=== PATIENT | female | born 1965 | race Caucasian/White ===

== ENCOUNTER 2022-06-13 19:02 | Inpatient (IN) | payer SELFPAY ==
[2022-06-13] MEDS ORDERED: ONDANSETRON 4 MG/2 ML VIAL IVP STA (22:54)
[2022-06-13] MEDS ORDERED: SODIUM CHLORIDE 0.9% 1,000 ML IV STA (22:54)
[2022-06-13] MEDS ORDERED: HYDROmorphone 0.5 MG/0.5 ML SYRINGE IVP STA (22:54)
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
[2022-06-14 00:27] LABS: Basophils % (A) 0 %; Eosinophils % (A) 0 %; HCT 38.9 % (34.0-46.0); HGB 12.2 gm/dL (11.4-16.0); Lymphocytes # (A) 0.5 k/uL (1.0-4.8); Lymphocytes % (A) 4 %; MCH 28.9 pg (25.0-35.0); MCHC 31.5 g/dL (31.0-37.0); MCV 91.8 fL (80.0-100.0); Mean Platelet Volume 8.6; Monocytes # (A) 0.4 k/uL (0-1.0); Monocytes % (A) 3 %; Neutrophils # (A) 13.8 k/uL (1.3-7.7); Neutrophils % (A) 92 %; Platelet Count 256 k/uL (150-450); RBC 4.23 m/uL (3.80-5.40); RDW 14.3 % (11.5-15.5)
[2022-06-14 00:34] LABS: ALT 14 U/L (4-34); AST 17 U/L (14-36); African American GFR (CKD) >90 (>60 ml/min/1.73 sqM); Albumin 2.8 g/dL (3.5-5.0); Alkaline Phosphatase 127 U/L (38-126); Amylase 35 U/L (30-110); Anion Gap 13 mmol/L; Blood Urea Nitrogen 14 mg/dL (7-17); Calcium 8.5 mg/dL (8.4-10.2); Carbon Dioxide 24 mmol/L (22-30); Chloride 100 mmol/L (98-107); Glucose 112 mg/dL (74-99); Lipase 33 U/L (23-300); Non-African American GFR(CKD) >90 (>60 ml/min/1.73 sqM); Potassium 3.2 mmol/L (3.5-5.1); Sodium 137 mmol/L (137-145); Total Bilirubin 0.6 mg/dL (0.2-1.3); Total Protein 5.8 g/dL (6.3-8.2)
[2022-06-14] MEDS ORDERED: HYDROmorphone 0.5 MG/0.5 ML SYRINGE IVP STA (02:18)
[2022-06-14] MEDS ORDERED: POTASSIUM CHLORIDE ER 20 MEQ TAB.ER PO STA (03:48)
[2022-06-14] MEDS ORDERED: ACETAMINOPHEN TAB 325 MG TAB PO PRN ×2 (04:13→17:32)
[2022-06-14] MEDS ORDERED: ONDANSETRON 4 MG/2 ML VIAL IVP PRN ×2 (04:13→17:32)
[2022-06-14] MEDS ORDERED: NALOXONE 0.4 MG/ML 1 ML VIAL IV PRN ×2 (04:13→17:32)
[2022-06-14] MEDS ORDERED: MORPHINE SULFATE 4 MG/ML SYRINGE IV PRN (04:13)
[2022-06-14] MEDS ORDERED: cefTRIAXone 2 GM VIAL IVPB ONE (04:30)
[2022-06-14] MEDS: HYDROmorphone 0.5 MG/0.5 ML SYRINGE IVP PRN ×5 (05:58→18:00)
[2022-06-14] MEDS: SODIUM CHLORIDE 0.9% 1,000 ML IV SCH ×2 (05:59→18:26)
[2022-06-14] MEDS ORDERED: FAMOTIDINE 20 MG TAB PO SCH (09:00)
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
[2022-06-14] MEDS: IOPAMIDOL CONTRAST (ORAL USE) VIAL PO PRN ×2 (09:42→10:56)
[2022-06-14] MEDS: metroNIDAZOLE 500 MG TAB PO SCH ×2 (09:43→16:09)
[2022-06-14] MEDS: GABAPENTIN 300 MG CAP PO PRN (09:43)
[2022-06-14 10:38] LABS: INR 1.2 (<1.2); Prothrombin Time 12.4 sec (9.0-12.0)
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
--- NOTE | 2022-06-14 12:16 | CT ---
EXAMINATION TYPE: CT abdomen pelvis w con CT DLP: 1858.4 mGycm, Automated exposure control for dose reduction was used. DATE OF EXAM: 06/14/2022 11:44 AM COMPARISON: CT abdomen pelvis most recent from 06/06/2022, CT guided abscess drainage 06/07/2022 . CLINICAL INDICATION:Female, 57 years old with history of diverticulitis with abscess; Left sided butt ocks pain after abscess. TECHNIQUE: Standard CT of the abdomen and pelvis following the administration of 100 cc of Isovue 3 00 IV contrast material and oral contrast. Coronal and sagittal reformats were performed. FINDINGS: LOWER CHEST: Right lower lobe dependent atelectasis. ABDOMEN LIVER: Diffusely hypoattenuating parenchyma. No suspicious lesion. GALLBLADDER AND BILE DUCTS: Calcified gallstone identified. No wall thickening or surrounding inflamm atory changes. No biliary ductal dilatation. PANCREAS: Unremarkable. SPLEEN: Enlarged measuring 17.1 cm in AP dimension. ADRENAL GLANDS: Left adrenal gland is unremarkable. Stable right adrenal gland lesion measuring up to 4.3 cm from most recent examination however this has increased size from prior examination in 2010. KIDNEYS AND URETERS: No hydronephrosis. Contrast is demonstrated within both collecting systems which limits evaluation for renal calculi. Kidneys enhance symmetrically. PELVIS BLADDER: Under distended with trace contrast identified. REPRODUCTIVE: Uterus is slightly deviated to the right secondary to pelvic abscess. The left ovary is not well-visualized. ABDOMEN & PELVIS STOMACH AND BOWEL: Stomach and duodenum are unremarkable. Redemonstration of sigmoid colon wall thick ening with contained perforation measuring grossly 5.8 x 4.2 cm. Colonic diverticulosis in this regio n. No evidence of bowel obstruction. PERITONEUM: Contained air in the pelvis. Redemonstration of left pelvic abscess with air-fluid level measuring 10.5 x 5.1 cm, previously 7.1 x 4.4 cm. This demonstrates a larger gas component with decre ased fluid component. Pigtail catheter has somewhat migrated prior exam with only a small portion dem onstrated within the collection. VASCULATURE: Mild atherosclerotic calcifications are present throughout the abdominal aorta and its b ranches. No evidence of aortic aneurysm. MUSCULOSKELETAL: No acute osseous abnormalities. Scoliotic curvature of the visualized spine. LYMPH NODES: Multiple prominent periportal lymph nodes, likely reactive. SOFT TISSUE/ABDOMINAL WALL: New gas and thickening identified within the left piriformis muscle and l eft gluteal musculature with surrounding fat stranding (series 201, image 74 through 98). IMPRESSION: 1. Redemonstration of contain perforated sigmoid diverticulitis with slight increase in size of left pelvic abscess measuring up to 10.5 cm with larger air component, previously 7.1 cm. Marginal decreas e in fluid component. Interval migration of percutaneous pigtail catheter with only a tiny portion al leonie the wall of the pelvic abscess. 2. New foci of gas and edematous appearance of the left piriformis and left gluteal musculature with surrounding fat stranding. Finding is concerning for infectious process with necrotizing infection no t excluded. 3. Stable indeterminate right adrenal gland lesion from recent examination 06/06/2022 however this has increased in size from prior examination 2010. Nonemergent CT adrenal mass protocol is recommended. 4. Cholelithiasis. 5. Splenomegaly.
[2022-06-14] MEDS ORDERED: LIDOCAINE 1% INJ 10MG/ML (5 ML VIAL-PF) SQ ONE (14:39)
--- NOTE | 2022-06-14 15:20 | IR ---
EXAMINATION TYPE: IR cvc insert >=5 years DATE OF EXAM: 06/14/2022 COMPARISON: NONE CLINICAL HISTORY: Abscess Needs long-term intravenous access for antibiotics. PROCEDURE: Hand hygiene obtained with soap and water and alcohol-based hand rub. After informed consent, the skin overlying the right cephalic vein was localized with ultrasound and noted to be compressible and patent. An ultrasound image was obtained and submitted on the patient's chart. The overlying skin was prepped and draped and Lidocaine was used for local anesthesia. A sk in maria ines was made with a scalpel. Access was gained to the vein under ultrasound guidance with a 21 g auge needle and a 0.018 inch wire was advanced but was not advanced centrally, vein was subsequently punctured again. Access site was dilated with Peel-Away sheath and catheter tailored to the appropri ate length and advanced such that the distal tip is at the cavoatrial junction following negotiated a nd with a 0.018 inch angled Glidewire following failed guidewire advancement. Spot image was obtaine d verifying placement. Catheter was fixed to the skin and a sterile dressing was placed following he mostasis. Catheter was aspirated and flushed with saline. Patient was discharged in stable conditio n without complication. Maximal barrier technique is utilized. Ultrasound image is documented on the chart. Ultrasound used with sterile technique. Fluoro time and fluoroscopic images submitted to document procedure: 75 intraoperative C-arm images, 5.2 minutes fluoroscopy time IMPRESSION: STATUS POST ULTRASOUND AND FLUOROSCOPIC GUIDED PICC LINE PLACEMENT, READY FOR USE. THIS PROCEDURE WAS PERFORMED BY THE UNDERSIGNED.
[2022-06-14] MEDS ORDERED: LACTATED RINGERS 1,000 ML IV ONE ×3 (15:53→17:32)
[2022-06-14] MEDS ORDERED: LIDOCAINE 2% INJ 20 MG/ML (2 ML VIAL) ONE (16:18)
[2022-06-14] MEDS ORDERED: NEOSTIGMINE 1 MG/ML 10 ML VIAL ONE (16:18)
[2022-06-14] MEDS ORDERED: fentaNYL (PF) 50 MCG/ML 2 ML AMP ONE (16:18)
[2022-06-14] MEDS ORDERED: ROCURONIUM 10 MG/ML (5 ML VIAL) IV ONE (16:18)
[2022-06-14] MEDS ORDERED: PROPOFOL 10 MG/ML 20 ML VIAL IV ONE (16:18)
[2022-06-14] MEDS ORDERED: GLYCOPYRROLATE 0.2 MG/ML 2 ML VIAL ONE (16:18)
[2022-06-14] MEDS ORDERED: SUCCINYLCHOLINE CHLORIDE 200 MG/10 ML VIAL IV ONE (16:18)
[2022-06-14] MEDS ORDERED: HYDROmorphone (PF) 1 MG/ML ONE (16:18)
[2022-06-14] MEDS ORDERED: MIDAZOLAM 2 MG/2 ML VIAL ONE (16:18)
[2022-06-14] MEDS ORDERED: HEPARIN SODIUM,PORCINE 5,000 UNIT/ML 1 ML VIAL SQ ONE (16:18)
[2022-06-14] MEDS ORDERED: IV FLUID CONTINUATION 1,000 ML IV ONE (16:19)
--- NOTE | 2022-06-14 16:19 | P.PN ---
Progress Note - Text Progress Note Date: 06/14/22 Patient's CAT scan shows worsening abscess in the pelvis related to previous perforated diverticulitis. I discussed the fundoplication. Patient will undergo sigmoid colectomy with end colostomy and washout of pelvis today.
--- NOTE | 2022-06-14 17:31 | P.OP ---
Date of Procedure: 06/14/22 Preoperative Diagnosis: Perforated diverticulitis with abscess Postoperative Diagnosis: Perforated diverticulitis with abscess Procedure(s) Performed: Sigmoid colectomy with end colostomy and washout of pelvic abscess Anesthesia: TYRESE Surgeon: Freedom Cotni Estimated Blood Loss (ml): 25 Pathology: other (Sigmoid colon) Condition: stable Disposition: PACU Description of Procedure: Patient's placed on the operative table in the supine position.. She received general anesthesia. Her abdomen was prepped and draped usual fashion. The skin was incised in the low midline position. The abdomen was entered. The Minerva retractors placed a wound. The sigmoid colon was followed down level polyps. There is a lot of inflammation. A pelvic abscess was entered. There is a lot of stool in the abscess. This point the sigmoid colon was dissected free and then transected proximally with the linear stapler. Using the Enseal device the mesentery the sigmoid colon was divided. And then the sigmoid colon was transected with the contour stapler distal to the abscess area. The abdomen was irrigated with 4 L of normal saline. A EMELIA drains placed the pelvis and brought through the stab incision in the right lower quadrant. The colostomy was then brought up in the left upper quadrant. The fascia was closed with looped #1 PDS suture. Skin was closed marek. The superior portion of the incision was closed marek. The inferior portion left open and packed with Kerlix. The colostomy then matured with 3-0 Vicryl. Sterile dressing applied. Patient top she will well. She was sent to recovery room stable condition. Her EMELIA drain was placed by radiology in the left buttock was then removed.
[2022-06-14] MEDS: KETOROLAC 15 MG/ML 1 ML VIAL IVP SCH (17:52)
[2022-06-14] MEDS: AMPICILLIN-SULBACTAM 3 GM in SODIUM CHLORIDE 0.9% 100 ML IVPB SCH ×2 (19:24→20:00)
[2022-06-14] MEDS: FAMOTIDINE 20 MG/2 ML VIAL IV SCH (20:42)
[2022-06-14] MEDS: HYDROmorphone 1 MG/ML 1 ML SYRINGE IVP PRN (20:43)
[2022-06-14] MEDS ORDERED: HEPARIN SODIUM,PORCINE/PF 5,000 UNIT/0.5 ML SYRINGE SQ SCH (21:00)
[2022-06-14] MEDS: metroNIDAZOLE-NS PMX 500 MG in SALINE 1 100ML.BAG IVPB SCH (22:01)
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
[2022-06-15] MEDS: HYDROmorphone 1 MG/ML 1 ML SYRINGE IVP PRN ×3 (00:45→16:20)
[2022-06-15] MEDS: AMPICILLIN-SULBACTAM 3 GM in SODIUM CHLORIDE 0.9% 100 ML IVPB SCH ×5 (00:46→23:32)
[2022-06-15] MEDS: KETOROLAC 15 MG/ML 1 ML VIAL IVP SCH ×5 (01:08→23:32)
[2022-06-15] MEDS: metroNIDAZOLE-NS PMX 500 MG in SALINE 1 100ML.BAG IVPB SCH ×3 (04:16→20:54)
[2022-06-15] MEDS ORDERED: cefTRIAXone 2 GM VIAL IVPB SCH (06:00)
[2022-06-15 08:32] LABS: Basophils % (A) 0 %; Eosinophils % (A) 0 %; Hypochromasia Slight; Lymphocytes # (A) 0.5 k/uL (1.0-4.8); Lymphocytes % (A) 3 %; MCH 28.5 pg (25.0-35.0); MCHC 30.6 g/dL (31.0-37.0); Mean Platelet Volume 8.4; Monocytes # (A) 0.4 k/uL (0-1.0); Monocytes % (A) 2 %; Neutrophils # (A) 15.3 k/uL (1.3-7.7); Neutrophils % (A) 94 %; Platelet Count 256 k/uL (150-450); RBC 3.87 m/uL (3.80-5.40); RDW 14.5 % (11.5-15.5); WBC 16.3 k/uL (3.8-10.6)
[2022-06-15 08:44] LABS: African American GFR (CKD) >90 (>60 ml/min/1.73 sqM); Anion Gap 9 mmol/L; Blood Urea Nitrogen 17 mg/dL (7-17); Calcium 7.9 mg/dL (8.4-10.2); Carbon Dioxide 27 mmol/L (22-30); Chloride 103 mmol/L (98-107); Glucose 116 mg/dL (74-99); Non-African American GFR(CKD) 82 (>60 ml/min/1.73 sqM); Potassium 3.9 mmol/L (3.5-5.1); Sodium 139 mmol/L (137-145)
[2022-06-15] MEDS: ENOXAPARIN 40 MG/0.4 ML SYRINGE SQ SCH (08:45)
[2022-06-15] MEDS: FAMOTIDINE 20 MG/2 ML VIAL IV SCH ×2 (08:46→20:55)
[2022-06-15] MEDS: LACTATED RINGERS 1,000 ML IV SCH ×3 (08:54→23:34)
[2022-06-15] MEDS: SODIUM CHLORIDE 0.9% 1,000 ML IV SCH (11:40)
--- NOTE | 2022-06-15 12:33 | P.PN ---
Subjective Progress Note Date: 06/15/22 CHIEF COMPLAINT: Perforated diverticulitis with abscess HISTORY OF PRESENT ILLNESS: Patient is postop day #1 status post sigmoid colectomy with end colostomy and washout of pelvic abscess for perforated di verticulitis with abscess. Patient reports that most of her pain is still on the left buttocks where her drain had been. The drain was removed in the OR. Patient denies any nausea or vomiting. She remains nothing by mouth. EMELIA drain with 40 mL of serous output. She denies any nausea or vomiting. WBC 15 up to 16.3 Hgb 11 platelets 254 potassium is 3.9 creatinine 0.80 Patient seen and examined with Dr. vincent PHYSICAL EXAM: VITAL SIGNS: Reviewed. GENERAL: Well-developed in no acute distress. HEENT: No sclera icterus. Extraocular movements grossly intact. Moist buccal mucosa. Head is atraumatic, normocephalic. ABDOMEN: Soft. Nondistended. Patient has colostomy on the left sero sanguineous output noted. Stoma pink. Incision site clean dry and intact. The lower incision is open to drain and has packing in place. NEURO: Alert and oriented. Cranial nerves II through XII grossly intact. SKIN: left buttocks with very minimal induration. No erythema. There is a small punctured area where the drain had been placed. There is some purulent drainage noted. Tender with palpation. ASSESSMENT: 1. Perforated diverticulitis with abscess status post sigmoid colectomy with end colostomy and washout of pelvic abscess PLAN: -Increase IV fluids to 125 mL per hour -Continue antibiotics per ID service -Continue pain medication -Continue local wound care with wet-to-dry dressing changes -Keep patient nothing by mouth -Repeat labs in a.m. -GI prophylaxis Pepcid and DVT prophylaxis Lovenox Physician Counter Control Operator note has been reviewed by physician. Signing provider agrees with the documented findings, assessment, and plan of care. Objective - Vital Signs Vital signs: Vital Signs Temp 97.6 F 06/15/22 08:00 Pulse 74 06/15/22 08:00 Resp 18 06/15/22 08:00 BP 133/78 06/15/22 08:00 Pulse Ox 98 06/15/22 08:00 FiO2 Intake & Output 06/14/22 06/15/22 06/15/22 18:59 06:59 18:59 Intake Total 1600 400 Output Total 210 700 40 Balance 1390 -300 -40 Weight 99.79 kg Intake: IV 1600 Oral 400 Output: Drainage 100 40 Anterior Abdomen 100 40 Urine 140 600 Uretheral (Lucia) 600 Estimated Blood Loss 70 Other: Voiding Method Indwelling Catheter Indwelling Catheter - Labs CBC & Chem 7: 06/15/22 06:56 06/15/22 06:56 Labs: Abnormal Lab Results - Last 24 Hours (Table) 06/15/22 06/15/22 Range/Units 06:56 06:56 WBC 16.3 H (3.8-10.6) k/uL Hgb 11.0 L (11.4-16.0) gm/dL MCHC 30.6 L (31.0-37.0) g/dL Neutrophils # 15.3 H (1.3-7.7) k/uL Lymphocytes # 0.5 L (1.0-4.8) k/uL Glucose 116 H (74-99) mg/dL Calcium 7.9 L (8.4-10.2) mg/dL
--- NOTE | 2022-06-15 14:34 | P.PN ---
Subjective Progress Note Date: 06/15/22 Hospital course: Patient is a very pleasant 57-year-old female with a past medical history of diverticulitis whom underwent recent hospitalization from 06/06/22 through 06/10/22 after presenting with left lower quadrant abdominal pain and being diagnosed with complicated perforated sigmoid diverticulitis which resulted and undergoing a CT guided drainage of her intra-abdominal abscess and drain was left in place. Patient presented to the hospital overnight with a chief complaint of decreased output from this drain and experiencing fecal appearing drainage around the drain insertion site. Patient reports this is accompanied by significant left lower quadrant abdominal pain and pain throughout her left buttocks. Patient denied having any fevers, chills, nausea, vomiting, or any urinary complaints. Patient reports when she was discharged home from the hospital on 06/10/22 she was experiencing normal bowel movements however reports she has not had a bowel movement in over 2 days. Patient has been receiving IV antibiotics Rocephin and Flagyl managed through infectious disease on an outpatient basis. Previous culture results obtained upon insertion of abscess drainage catheter on 06/07/22 revealed anaerobic culture positive for gram- negative bacilli and Gram stain positive forbeta-hemolytic Streptococcus and E. coli. Upon arrival to the emergency department, patient underwent full evaluation. Labs completed revealing leukocytosis with a left shift with WBC count of 15.0, hypokalemia with potassium of 3.2, an elevated alkaline phosphatase of 127. Patient was admitted under Gen. surgery team and we were consulted for medical management throughout patient's hospitalization. CT abdomen and pelvis with contrast was obtained which revealed redemonstration of contained perforated sigmoid diverticulitis with slight increase in size of left pelvic abscess measuring up to 10.5 cm with larger a component (previously 7.1 cm) and a new foci of gas and edematous appearance of left piriformis and left gluteal musculature with surrounding fat stranding concerning for an infectious process, unable to exclude necrotizing fasciitis. general surgeon and infectious disease both notified. Rocephin discontinued and patient started on Unasyn per recommendation of infectious disease. General surgery took patient to OR and pt underwent a sigmoid colectomy with end colostomy placement. Physical exam: Patient seen and fully evaluated at bedside this morning. Patient continues to complain of pain to left buttocks and generalized overall abdominal pain. she is receiving gentle IV fluid hydration with lactated Ringer's at 125 mL's per hour. She remains on Flagyl and Unasyn. Vital signs reviewed and stable. General: Nontoxic, no distress and appears stated age. Appears older than her biological age. Derm: Skin warm and dry, normal coloration for ethnicity. Head: Atraumatic, normocephalic and symmetric. Eyes: EOMs intact, no lid lag, and anicteric sclera Mouth: no lip lesions, mucus membranes moist Cardiovascular: regular rate and rhythm with normal S1S2, systolic murmur, positive posterior tibial pulses bilaterally, and cap refill < 2 seconds. Lungs: Respirations even, regular, and unlabored on room air. Lungs CTA bilaterally, no rhonchi, no rales, no wheezing, and no accessory muscle usage. GI/: soft obese abdomen, patient with colostomy left lower quadrant, stoma martha red in color and no drainage in colostomy bag. To right side of abdomen, vertical surgical incision in place to right upper and lower quadrant with marek and lower third of incision was left open with packing in place. Pt has previous drainage tube in the insertion site to left buttocks with brown purulent drainage. Ext: ROM intact. No gross muscle atrophy, no edema, no contractures Neuro: Speech clear, face symmetrical and CN II-XII grossly intact with no noted focal neuro deficits Psych: Alert and oriented to person, place, time, and situation. Appropriate and pleasant affect. Assessment and Plan of Care: Peritonitis Perforated sigmoid diverticulitis Leukocytosis Beta-hemolytic streptococcus and E. coli infection -Management through primary admitting general surgery team including DVT prophylaxis, pain management, wound care, and drain management. -Cultures obtained on 06/07/22 revealing anaerobic culture positive for gram- negative bacilli and Gram stain positive forbeta-hemolytic Streptococcus and E. coli. -Patient to continue current IV antibiotics with Flagyl and Unasyn -Blood cultures pending -Infectious disease Following -Symptomatic care and pain management Hypokalemia, replaced Thank you for allowing us to participate in the care of this pleasant patient. Do not hesitate to contact us with questions. Someone can be reached from the [facility] hospitalist group all hours of the day at [phone] or via perfect serve. Objective - Vital Signs Vital signs: Vital Signs Temp 98.3 F 06/15/22 02:00 Pulse 74 06/15/22 02:00 Resp 14 06/15/22 02:00 BP 143/68 06/15/22 02:00 Pulse Ox 97 06/15/22 02:00 FiO2 Intake & Output 06/14/22 06/15/22 06/15/22 18:59 06:59 18:59 Intake Total 1600 400 Output Total 210 700 40 Balance 1390 -300 -40 Weight 99.79 kg Intake: IV 1600 Oral 400 Output: Drainage 100 40 Anterior Abdomen 100 40 Urine 140 600 Uretheral (Lucia) 600 Estimated Blood Loss 70 Other: Voiding Method Indwelling Catheter - Labs CBC & Chem 7: 06/15/22 06:56 06/15/22 06:56 Labs: Abnormal Lab Results - Last 24 Hours (Table) 06/14/22 Range/Units 10:10 PT 12.4 H (9.0-12.0) sec INR 1.2 H (<1.2)
[2022-06-16] MEDS: metroNIDAZOLE-NS PMX 500 MG in SALINE 1 100ML.BAG IVPB SCH ×3 (04:11→20:02)
[2022-06-16] MEDS: KETOROLAC 15 MG/ML 1 ML VIAL IVP SCH ×2 (05:18→12:24)
[2022-06-16] MEDS: AMPICILLIN-SULBACTAM 3 GM in SODIUM CHLORIDE 0.9% 100 ML IVPB SCH ×4 (05:18→23:55)
[2022-06-16] MEDS: FAMOTIDINE 20 MG/2 ML VIAL IV SCH ×2 (07:34→20:03)
--- NOTE | 2022-06-16 07:38 | P.PN ---
Subjective Progress Note Date: 06/15/22 Principal diagnosis: Perforated diverticulitis and intra-abdominal abscess Patient is a 57-year-old female who was recently admitted at this facility diagnosed with a perforated diverticulitis intra-abdominal abscess status post CT-guided drainage culture positive for E. coli and strep and anaerobes discharged on Rocephin and Flagyl subsequently presented back to the hospital with more pain and her drainage catheter site and no output patient was noticed to have worsening abscess and inflammation around the drainage catheter site patient is status post laparotomy diverting colostomy abdominal washout and no cultures. On today's evaluation that is 06/15/2022, the patient denies having any fever or any chills, sick complaining of pain to the left gluteal area site of the drainage catheter abdominal pain is currently controlled denies any chest pain or shortness of breath or cough no nausea no vomiting Objective - Vital Signs Vital signs: Vital Signs Temp 97.6 F 06/15/22 08:00 Pulse 74 06/15/22 08:00 Resp 18 06/15/22 08:00 BP 133/78 06/15/22 08:00 Pulse Ox 98 06/15/22 08:00 FiO2 Intake & Output 06/14/22 06/15/22 06/15/22 18:59 06:59 18:59 Intake Total 1600 400 Output Total 210 700 40 Balance 1390 -300 -40 Weight 99.79 kg Intake: IV 1600 Oral 400 Output: Drainage 100 40 Anterior Abdomen 100 40 Urine 140 600 Uretheral (Lucia) 600 Estimated Blood Loss 70 Other: Voiding Method Indwelling Catheter Indwelling Catheter - Exam GENERAL DESCRIPTION: Middle-aged female lying in bed in no distress RESPIRATORY SYSTEM: Unlabored breathing , decreased breath sounds at bases HEART: S1 S2 regular rate and rhythm , ABDOMEN: Soft , lower abdominal incision is open however no surrounding redness or drainage minimal drainage from her left gluteal drainage catheter site EXTREMITIES: No edema feet - Labs CBC & Chem 7: 06/15/22 06:56 06/15/22 06:56 Labs: Abnormal Lab Results - Last 24 Hours (Table) 06/15/22 06/15/22 Range/Units 06:56 06:56 WBC 16.3 H (3.8-10.6) k/uL Hgb 11.0 L (11.4-16.0) gm/dL MCHC 30.6 L (31.0-37.0) g/dL Neutrophils # 15.3 H (1.3-7.7) k/uL Lymphocytes # 0.5 L (1.0-4.8) k/uL Glucose 116 H (74-99) mg/dL Calcium 7.9 L (8.4-10.2) mg/dL Assessment and Plan (1) Pelvic abscess Current Visit: No Status: Acute Code(s): PVC6305 - SNOMED Code(s): 975132245 (2) Perforation of sigmoid colon due to diverticulitis Current Visit: No Status: Acute Code(s): K57.20 - DVTRCLI OF LG INT W PERFORATION AND ABSCESS W/O BLEEDING SNOMED Code(s): 3248572774807268 Plan: 1patient presented to hospital with drainage around the CT-guided drainage catheter site and this patient noticed to have worsening of the intra-abdominal abscess and some inflammation around the drainage catheter site status post laparotomy and diverting colostomy and washout of the pelvic abscess unfortunately no cultures were done with the recent CT-guided fluid cultures were positive for E. coli strep and anaerobes 2patient to continue Unasyn 3 g every 6 hours and monitor clinical course closely
[2022-06-16] MEDS: ENOXAPARIN 40 MG/0.4 ML SYRINGE SQ SCH (08:36)
[2022-06-16 11:28] LABS: Basophils % (A) 0 %; Eosinophils % (A) 0 %; HCT 33.8 % (34.0-46.0); HGB 10.7 gm/dL (11.4-16.0); Hypochromasia Slight; Lymphocytes # (A) 0.6 k/uL (1.0-4.8); Lymphocytes % (A) 4 %; MCH 29.7 pg (25.0-35.0); MCHC 31.7 g/dL (31.0-37.0); MCV 93.7 fL (80.0-100.0); Mean Platelet Volume 8.3; Monocytes # (A) 0.2 k/uL (0-1.0); Monocytes % (A) 2 %; Neutrophils # (A) 12.2 k/uL (1.3-7.7); Neutrophils % (A) 93 %; Platelet Count 235 k/uL (150-450); RBC 3.61 m/uL (3.80-5.40); RDW 14.9 % (11.5-15.5); WBC 13.1 k/uL (3.8-10.6)
--- NOTE | 2022-06-16 11:29 | P.PN ---
Subjective Progress Note Date: 06/16/22 CHIEF COMPLAINT: Perforated diverticulitis with abscess HISTORY OF PRESENT ILLNESS: Patient is postop day #2 status post sigmoid colectomy with end colostomy and washout of pelvic abscess for perforated di verticulitis with abscess. Patient continues to complain that most of her pain is in the left buttocks. She reports the pain is about the same as yesterday. She denies any abdominal pain. Denies any nausea or vomiting. No output from the ostomy. EMELIA drain 35 mL servicing was output this morning and 100 mL output through the 8. Patient wants to get up and ambulate. Afebrile. Labs for today pending. Urine output adequate. Patient seen and examined with Dr. vincent PHYSICAL EXAM: VITAL SIGNS: Reviewed. GENERAL: Well-developed in no acute distress. HEENT: No sclera icterus. Extraocular movements grossly intact. Moist buccal mucosa. Head is atraumatic, normocephalic. ABDOMEN: Soft. Nondistended. Patient has colostomy on the left serosanguineous output noted. Stoma pink. Incision site clean dry and intact. The lower incision is open to drain and has packing in place. NEURO: Alert and oriented. Cranial nerves II through XII grossly intact. SKIN: left buttocks with very minimal induration. Softer than yesterday. No erythema. foul smelling dark drainage at old drain site. tender with palpation ASSESSMENT: 1. Perforated diverticulitis with abscess status post sigmoid colectomy with end colostomy and washout of pelvic abscess PLAN: -Consult PT OT -Incentive spirometer ordered -Encouraged patient to increase activity level -Continue IV fluids at 125 mL per hour -Continue antibiotics per ID service -Continue pain medication -Continue local wound care with wet-to-dry dressing changes -Keep patient nothing by mouth except ice chips -Repeat labs in a.m. -GI prophylaxis Pepcid and DVT prophylaxis Lovenox Physician Thread Machine Operator note has been reviewed by physician. Signing provider agrees with the documented findings, assessment, and plan of care. Objective - Vital Signs Vital signs: Vital Signs Temp 97.9 F 06/16/22 07:38 Pulse 70 06/16/22 07:38 Resp 18 06/16/22 07:38 BP 123/69 06/16/22 07:38 Pulse Ox 100 06/16/22 07:38 FiO2 Intake & Output 06/15/22 06/16/22 06/16/22 18:59 06:59 18:59 Output Total 680 725 Balance -680 -725 Output: Drainage 80 100 Anterior Abdomen 80 100 Urine 600 625 Other: Voiding Method Indwelling Catheter Indwelling Catheter Indwelling Catheter - Labs CBC & Chem 7: 06/15/22 06:56 06/15/22 06:56 Labs: Microbiology - Last 24 Hours (Table) 06/14/22 20:04 Blood Culture - Preliminary Blood No Growth after 24 hours 06/14/22 20:10 Blood Culture - Preliminary Blood No Growth after 24 hours
[2022-06-16 11:37] LABS: African American GFR (CKD) >90 (>60 ml/min/1.73 sqM); Anion Gap 9 mmol/L; Blood Urea Nitrogen 26 mg/dL (7-17); Calcium 8.2 mg/dL (8.4-10.2); Carbon Dioxide 25 mmol/L (22-30); Chloride 106 mmol/L (98-107); Glucose 100 mg/dL (74-99); Non-African American GFR(CKD) >90 (>60 ml/min/1.73 sqM); Potassium 3.8 mmol/L (3.5-5.1); Sodium 140 mmol/L (137-145)
--- NOTE | 2022-06-16 11:38 | P.PN ---
Subjective Progress Note Date: 06/16/22 Hospital course: Patient is a very pleasant 57-year-old female with a past medical history of diverticulitis whom underwent recent hospitalization from 06/06/22 through 06/10/22 after presenting with left lower quadrant abdominal pain and being diagnosed with complicated perforated sigmoid diverticulitis which resulted and undergoing a CT guided drainage of her intra-abdominal abscess and drain was left in place. Patient presented to the hospital overnight with a chief complaint of decreased output from this drain and experiencing fecal appearing drainage around the drain insertion site. Patient reports this is accompanied by significant left lower quadrant abdominal pain and pain throughout her left buttocks. Patient denied having any fevers, chills, nausea, vomiting, or any urinary complaints. Patient reports when she was discharged home from the [facility] on 06/10/22 she was experiencing normal bowel movements however reports she has not had a bowel movement in over 2 days. Patient has been receiving IV antibiotics Rocephin and Flagyl managed through infectious disease on an outpatient basis. Previous culture results obtained upon insertion of abscess drainage catheter on 06/07/22 revealed anaerobic culture positive for gram- negative bacilli and Gram stain positive forbeta-hemolytic Streptococcus and E. coli. Upon arrival to the emergency department, patient underwent full evaluation. Labs completed revealing leukocytosis with a left shift with WBC count of 15.0, hypokalemia with potassium of 3.2, an elevated alkaline phosphatase of 127. Patient was admitted under Gen. surgery team and we were consulted for medical management throughout patient's hospitalization. CT abdomen and pelvis with contrast was obtained which revealed redemonstration of contained perforated sigmoid diverticulitis with slight increase in size of left pelvic abscess measuring up to 10.5 cm with larger a component (previously 7.1 cm) and a new foci of gas and edematous appearance of left piriformis and left gluteal musculature with surrounding fat stranding concerning for an infectious process, unable to exclude necrotizing fasciitis. general surgeon and infectious disease both notified. Rocephin discontinued and patient started on Unasyn per recommendation of infectious disease. General surgery took patient to OR and pt underwent a sigmoid colectomy with end colostomy placement. Progress Note Update: Pt is still c/o of abdominal pain. Has been passing flatus via ostomy. Tolerating ice chips. IVF ongoing. Abx ongoing. Physical exam: Gen: awake, alert HEENT: normocephalic, atraumatic, good hearing acuity, moist mucous membranes Resp: good air exchange, breathing comfortably with no accessory muscle use CVS: good distal perfusion x 4, GI: soft, NTTP, ND, ostomy : no SPT, no CVAT, sinclair catheter is present MSK: no pitting edema, no clubbing Neuro: non-focal, moving all extremities Psych: cooperative, euthymic mood Assessment and Plan of Care: Peritonitis Perforated sigmoid diverticulitis Leukocytosis Beta-hemolytic streptococcus and E. coli infection -Management through primary admitting general surgery team including DVT prophylaxis, pain management, wound care, and drain management. -Cultures obtained on 06/07/22 revealing anaerobic culture positive for gram- negative bacilli and Gram stain positive forbeta-hemolytic Streptococcus and E. coli. -Patient to continue current IV antibiotics with Flagyl and Unasyn -Blood cultures - NGTD -Infectious disease Following -Symptomatic care and pain management -PT/OT -Would recommend advancing diet as tolerated, defer to surgery Thank you for allowing us to participate in the care of this pleasant patient. Do not hesitate to contact us with questions. Someone can be reached from the [facility] hospitalist group all hours of the day at [phone] or via [employer]. Objective - Vital Signs Vital signs: Vital Signs Temp 97.9 F 06/16/22 07:38 Pulse 70 06/16/22 07:38 Resp 18 06/16/22 07:38 BP 123/69 06/16/22 07:38 Pulse Ox 100 06/16/22 07:38 FiO2 Intake & Output 06/15/22 06/16/22 06/16/22 18:59 06:59 18:59 Output Total 680 725 Balance -680 -725 Output: Drainage 80 100 Anterior Abdomen 80 100 Urine 600 625 Other: Voiding Method Indwelling Catheter Indwelling Catheter Indwelling Catheter - Labs CBC & Chem 7: 06/15/22 06:56 06/15/22 06:56 Labs: Microbiology - Last 24 Hours (Table) 06/14/22 20:04 Blood Culture - Preliminary Blood No Growth after 24 hours 06/14/22 20:10 Blood Culture - Preliminary Blood No Growth after 24 hours
[2022-06-16] MEDS: HYDROmorphone 1 MG/ML 1 ML SYRINGE IVP PRN ×2 (20:00→23:54)
[2022-06-16] MEDS: LACTATED RINGERS 1,000 ML IV SCH (20:06)
[2022-06-17] MEDS: HYDROmorphone 1 MG/ML 1 ML SYRINGE IVP PRN ×5 (03:49→23:59)
[2022-06-17] MEDS: metroNIDAZOLE-NS PMX 500 MG in SALINE 1 100ML.BAG IVPB SCH ×3 (04:11→21:48)
[2022-06-17] MEDS: AMPICILLIN-SULBACTAM 3 GM in SODIUM CHLORIDE 0.9% 100 ML IVPB SCH ×3 (05:33→17:43)
[2022-06-17] MEDS: FAMOTIDINE 20 MG/2 ML VIAL IV SCH ×2 (08:15→21:47)
[2022-06-17] MEDS: ENOXAPARIN 40 MG/0.4 ML SYRINGE SQ SCH (08:15)
[2022-06-17] MEDS: GABAPENTIN 300 MG CAP PO PRN ×2 (08:15→22:00)
--- NOTE | 2022-06-17 10:29 | P.PN ---
Subjective Progress Note Date: 06/17/22 CHIEF COMPLAINT: Perforated diverticulitis with abscess HISTORY OF PRESENT ILLNESS: Patient is postop day #3 status post sigmoid colectomy with end colostomy and washout of pelvic abscess for perforated di verticulitis with abscess. Patient reports that her pain is controlled. She complains that the pain in her left buttocks is where most of her pain is located. She is sitting in bedside chair. She denies any nausea or vomiting. She did have some air through her ostomy bag. No stool. Urine output adequate. Afebrile. EMELIA drain serosanguineous output 60 mL this morning and 145ml throughout the day yesterday. Currently on clear liquids. Labs are pending. Does see yesterday trending down from 16.3-13.1 PHYSICAL EXAM: VITAL SIGNS: Reviewed. GENERAL: Well-developed in no acute distress. HEENT: No sclera icterus. Extraocular movements grossly intact. Moist buccal mucosa. Head is atraumatic, normocephalic. ABDOMEN: Soft. Nondistended. Patient has colostomy on the left serosanguine ous output noted. Stoma pink. Incision site clean dry and intact. The lower incision is open to drain and has packing in place. There is a greenish tinge to the outer edge of the Kerlix dressing and edge of the abdominal wound on the right side NEURO: Alert and oriented. Cranial nerves II through XII grossly intact. SKIN: left buttocks not examined today. Patient is sitting ASSESSMENT: 1. Perforated diverticulitis with abscess status post sigmoid colectomy with end colostomy and washout of pelvic abscess PLAN: -Continue to monitor abdominal incision -Discontinue Lucia catheter -Continue clear liquids -Continue antibiotics per ID service -Continue pain medication as needed -Continue local wound care with wet-to-dry dressing changes -Encouraged patient to use incentive spirometer -Encourage patient to ambulate -GI prophylaxis Pepcid and DVT prophylaxis Lovenox Physician Travel Registered Nurse Pacu note has been reviewed by physician. Signing provider agrees with the documented findings, assessment, and plan of care. I have personally seen and examined the patient, reviewed the TENNIS CENTRE MANAGER /PAs history, exam and MDM and agree with the assessment and plan as written. Based on total visit time, I have performed more than 50% of the visit. As above: Patient states she is having more pain in the left hip than elsewhere. Small amount of flatus from the ostomy. She is afebrile. White blood cell count improved. Patient does have tenderness and swelling left hip. There is a small amount of purulent drainage from the previous drain site. We'll order repeat CT left hip to evaluate for abscess. Patient might require incision and drainage. Objective - Vital Signs Vital signs: Vital Signs Temp 97.6 F 06/17/22 08:00 Pulse 64 06/17/22 08:15 Resp 17 06/17/22 08:15 BP 166/80 06/17/22 08:00 Pulse Ox 96 06/17/22 08:00 FiO2 Intake & Output 06/16/22 06/17/22 06/17/22 18:59 06:59 18:59 Intake Total 200 Output Total 145 660 60 Balance 55 -660 -60 Intake: Intake, IV Titration 200 Amount metroNIDAZOLE-NS PMX 500 200 mg In Saline 1 100ml.bag @ 100 mls/hr IVPB Q8H [facility] Rx#:[id number] Output: Drainage 145 110 60 Anterior Abdomen 145 110 60 Urine 550 Uretheral (Lucia) 550 Other: Voiding Method Indwelling Catheter Indwelling Catheter Indwelling Catheter # Voids 1 - Labs CBC & Chem 7: 06/17/22 06:33 06/17/22 06:33 Labs: Abnormal Lab Results - Last 24 Hours (Table) 06/16/22 06/16/22 Range/Units 11:01 11:01 WBC 13.1 H (3.8-10.6) k/uL RBC 3.61 L (3.80-5.40) m/uL Hgb 10.7 L (11.4-16.0) gm/dL Hct 33.8 L (34.0-46.0) % Neutrophils # 12.2 H (1.3-7.7) k/uL Lymphocytes # 0.6 L (1.0-4.8) k/uL BUN 26 H (7-17) mg/dL Glucose 100 H (74-99) mg/dL Calcium 8.2 L (8.4-10.2) mg/dL Microbiology - Last 24 Hours (Table) 06/14/22 20:04 Blood Culture - Preliminary Blood No Growth after 48 hours 06/14/22 20:10 Blood Culture - Preliminary Blood No Growth after 48 hours
[2022-06-17 11:49] LABS: African American GFR (CKD) 110.7 (60.0-200.0); Anion Gap 11.8 mmol/L (10.00-18.00); BUN/Creat Ratio 30.43 Ratio (12.00-20.00); Blood Urea Nitrogen 21.3 mg/dL (9.0-27.0); Calcium 8.3 mg/dL (8.7-10.3); Carbon Dioxide 24.2 mmol/L (20.0-27.5); Magnesium 2.1 mg/dL (1.5-2.4); Non-African American GFR(CKD) 95.5 (60.0-200.0)
[2022-06-17 12:25] LABS: Basophils # (M) 0 X 10*3/uL (0.00-0.10); Eosinophils # (M) 0 X 10*3/uL (0.04-0.35); HCT 32.7 % (37.2-46.3); HGB 10.4 g/dL (12.0-15.0); Lymphocytes # (M) 0.27 X 10*3/uL (0.90-5.00); MCHC 31.8 g/dL (32.0-37.0); MCV 94.2 fL (80.0-97.0); Mean Platelet Volume 11.7 fL (9.5-12.2); Monocytes # (M) 0.27 X 10*3/uL (0.20-1.00); NRBC Per 100 WBC 0 /100 WBCS (0.0-0.0); Neutrophils % (M) 96 %; Platelet Count 187 X 10*3/uL (140-440); RBC 3.47 X 10*6/uL (4.10-5.20); RDW 15.3 % (11.5-14.5); WBC 13.44 X 10*3/uL (4.50-10.00)
[2022-06-17] MEDS: LACTATED RINGERS 1,000 ML IV SCH ×3 (12:50→15:30)
[2022-06-17] MEDS ORDERED: traZODone HCL 50 MG TAB PO PRN (13:30)
--- NOTE | 2022-06-17 13:32 | P.PN ---
Subjective Progress Note Date: 06/17/22 Hospital course: Patient is a very pleasant 57-year-old female with a past medical history of diverticulitis whom underwent recent hospitalization from 06/06/22 through 06/10/22 after presenting with left lower quadrant abdominal pain and being diagnosed with complicated perforated sigmoid diverticulitis which resulted and undergoing a CT guided drainage of her intra-abdominal abscess and drain was left in place. Patient presented to the hospital overnight with a chief complaint of decreased output from this drain and experiencing fecal appearing drainage around the drain insertion site. Patient reports this is accompanied by significant left lower quadrant abdominal pain and pain throughout her left buttocks. Patient denied having any fevers, chills, nausea, vomiting, or any urinary complaints. Patient reports when she was discharged home from the [facility] on 06/10/22 she was experiencing normal bowel movements however reports she has not had a bowel movement in over 2 days. Patient has been receiving IV antibiotics Rocephin and Flagyl managed through infectious disease on an outpatient basis. Previous culture results obtained upon insertion of abscess drainage catheter on 06/07/22 revealed anaerobic culture positive for gram- negative bacilli and Gram stain positive forbeta-hemolytic Streptococcus and E. coli. Upon arrival to the emergency department, patient underwent full evaluation. Labs completed revealing leukocytosis with a left shift with WBC count of 15.0, hypokalemia with potassium of 3.2, an elevated alkaline phosphatase of 127. Patient was admitted under Gen. surgery team and we were consulted for medical management throughout patient's hospitalization. CT abdomen and pelvis with contrast was obtained which revealed redemonstration of contained perforated sigmoid diverticulitis with slight increase in size of left pelvic abscess measuring up to 10.5 cm with larger a component (previously 7.1 cm) and a new foci of gas and edematous appearance of left piriformis and left gluteal musculature with surrounding fat stranding concerning for an infectious process, unable to exclude necrotizing fasciitis. general surgeon and infectious disease both notified. Rocephin discontinued and patient started on Unasyn per recommendation of infectious disease. General surgery took patient to OR and pt underwent a sigmoid colectomy with end colostomy placement. Progress Note Update: Pt is still c/o of abdominal pain, improving. Has been passing flatus via ostomy, improving. Tolerating ice chips and little bits of CLD. IVF ongoing. Abx ongoing. Up in chair today, ambulating with PT. Physical exam: Gen: awake, alert HEENT: normocephalic, atraumatic, good hearing acuity, moist mucous membranes Resp: good air exchange, breathing comfortably with no accessory muscle use CVS: good distal perfusion x 4, GI: soft, NTTP, ND, ostomy : no SPT, no CVAT, sinclair catheter is present MSK: no pitting edema, no clubbing Neuro: non-focal, moving all extremities Psych: cooperative, euthymic mood Assessment and Plan of Care: Peritonitis Perforated sigmoid diverticulitis Leukocytosis Beta-hemolytic streptococcus and E. coli infection -Management through primary admitting general surgery team including DVT prophylaxis, pain management, wound care, and drain management. -Cultures obtained on 06/07/22 revealing anaerobic culture positive for gram- negative bacilli and Gram stain positive forbeta-hemolytic Streptococcus and E. coli. -Patient to continue current IV antibiotics with Flagyl and Unasyn -Blood cultures - NGTD -Infectious disease Following -Symptomatic care and pain management -PT/OT -Would recommend advancing diet as tolerated, defer to surgery Thank you for allowing us to participate in the care of this pleasant patient. Do not hesitate to contact us with questions. Someone can be reached from the [facility] hospitalist group all hours of the day at [phone] or via [employer]. Objective - Vital Signs Vital signs: Vital Signs Temp 97.6 F 06/17/22 08:00 Pulse 64 06/17/22 08:15 Resp 17 06/17/22 08:15 BP 166/80 06/17/22 08:00 Pulse Ox 96 06/17/22 08:00 FiO2 Intake & Output 06/16/22 06/17/22 06/17/22 18:59 06:59 18:59 Intake Total 200 Output Total 145 660 60 Balance 55 -660 -60 Intake: Intake, IV Titration 200 Amount metroNIDAZOLE-NS PMX 500 200 mg In Saline 1 100ml.bag @ 100 mls/hr IVPB Q8H [facility] Rx#:[id number] Output: Drainage 145 110 60 Anterior Abdomen 145 110 60 Urine 550 Uretheral (Sinclair) 550 Other: Voiding Method Indwelling Catheter Indwelling Catheter Indwelling Catheter # Voids 1 - Labs CBC & Chem 7: 06/17/22 06:33 06/17/22 06:33 Labs: Abnormal Lab Results - Last 24 Hours (Table) 06/17/22 06/17/22 Range/Units 06:33 06:33 WBC 13.44 H (4.50-10.00) X 10*3/uL RBC 3.47 L (4.10-5.20) X 10*6/uL Hgb 10.4 L (12.0-15.0) g/dL Hct 32.7 L (37.2-46.3) % MCHC 31.8 L (32.0-37.0) g/dL RDW 15.3 H (11.5-14.5) % Neutrophils # (Manual) 12.90 H (2.00-8.90) X 10*3/uL Lymphocytes # (Manual) 0.27 L (0.90-5.00) X 10*3/uL Eosinophils # (Manual) 0 L (0.04-0.35) X 10*3/uL BUN/Creatinine Ratio 30.43 H (12.00-20.00) Ratio Glucose 148 H (70-110) mg/dL Calcium 8.3 L (8.7-10.3) mg/dL Microbiology - Last 24 Hours (Table) 06/14/22 20:04 Blood Culture - Preliminary Blood No Growth after 48 hours 06/14/22 20:10 Blood Culture - Preliminary Blood No Growth after 48 hours
[2022-06-17 13:54] VITALS: BMI 36.6
[2022-06-17] MEDS ORDERED: RX INFO: IV CONTRAST WAS GIVEN 1 EACH MISC MISCELLANE PRN (15:21)
--- NOTE | 2022-06-17 16:34 | P.PN ---
Subjective Progress Note Date: 06/16/22 Principal diagnosis: Perforated diverticulitis and intra-abdominal abscess Patient is a 57-year-old female who was recently admitted at this facility diagnosed with a perforated diverticulitis intra-abdominal abscess status post CT-guided drainage culture positive for E. coli and strep and anaerobes discharged on Rocephin and Flagyl subsequently presented back to the hospital with more pain and her drainage catheter site and no output patient was noticed to have worsening abscess and inflammation around the drainage catheter site patient is status post laparotomy diverting colostomy abdominal washout and no cultures. On today's evaluation that is 06/16/2022, the patient remains to be afebrile, the patient denies any worsening drainage from the left gluteal area , the patient abdominal pain is currently controlled denies any chest pain or shortness of breath or cough no nausea no vomiting Objective - Vital Signs Vital signs: Vital Signs Temp 97.9 F 06/16/22 07:38 Pulse 70 06/16/22 07:38 Resp 18 06/16/22 07:38 BP 123/69 06/16/22 07:38 Pulse Ox 100 06/16/22 07:38 FiO2 Intake & Output 06/15/22 06/16/22 06/16/22 18:59 06:59 18:59 Output Total 680 725 Balance -680 -725 Output: Drainage 80 100 Anterior Abdomen 80 100 Urine 600 625 Other: Voiding Method Indwelling Catheter Indwelling Catheter Indwelling Catheter - Exam GENERAL DESCRIPTION: Middle-aged female lying in bed in no distress RESPIRATORY SYSTEM: Unlabored breathing , decreased breath sounds at bases HEART: S1 S2 regular rate and rhythm , ABDOMEN: Soft , lower abdominal incision is open however no surrounding redness or drainage minimal drainage from her left gluteal drainage catheter site EXTREMITIES: No edema feet - Labs CBC & Chem 7: 06/17/22 06:33 06/17/22 06:33 Labs: Abnormal Lab Results - Last 24 Hours (Table) 06/16/22 06/16/22 Range/Units 11:01 11:01 WBC 13.1 H (3.8-10.6) k/uL RBC 3.61 L (3.80-5.40) m/uL Hgb 10.7 L (11.4-16.0) gm/dL Hct 33.8 L (34.0-46.0) % Neutrophils # 12.2 H (1.3-7.7) k/uL Lymphocytes # 0.6 L (1.0-4.8) k/uL BUN 26 H (7-17) mg/dL Glucose 100 H (74-99) mg/dL Calcium 8.2 L (8.4-10.2) mg/dL Microbiology - Last 24 Hours (Table) 06/14/22 20:04 Blood Culture - Preliminary Blood No Growth after 24 hours 06/14/22 20:10 Blood Culture - Preliminary Blood No Growth after 24 hours Assessment and Plan (1) Pelvic abscess Current Visit: No Status: Acute Code(s): FRC6625 - SNOMED Code(s): 697513267 (2) Perforation of sigmoid colon due to diverticulitis Current Visit: No Status: Acute Code(s): K57.20 - DVTRCLI OF LG INT W PERFORATION AND ABSCESS W/O BLEEDING SNOMED Code(s): 2938108768540834 Plan: 1patient presented to hospital with drainage around the CT-guided drainage catheter site and this patient noticed to have worsening of the intra-abdominal abscess and some inflammation around the drainage catheter site status post laparotomy and diverting colostomy and washout of the pelvic abscess unfortunately no cultures were done with the recent CT-guided fluid cultures were positive for E. coli strep and anaerobes 2patient seemed to have MRSA improvement and will continue Unasyn 3 g every 6 hours and monitor clinical course closely Time with Patient: Less than 30
--- NOTE | 2022-06-17 16:35 | P.PN ---
Subjective Progress Note Date: 06/17/22 Principal diagnosis: Perforated diverticulitis and intra-abdominal abscess Patient is a 57-year-old female who was recently admitted at this facility diagnosed with a perforated diverticulitis intra-abdominal abscess status post CT-guided drainage culture positive for E. coli and strep and anaerobes discharged on Rocephin and Flagyl subsequently presented back to the hospital with more pain and her drainage catheter site and no output patient was noticed to have worsening abscess and inflammation around the drainage catheter site patient is status post laparotomy diverting colostomy abdominal washout and no cultures. On today's evaluation that is 06/17/2022, the patient denies any fever or any chills, the patient denies any worsening abdominal pain and did have the minimal drainage from the left gluteal area, patient denies having any chest pain shortness of breath or cough no nausea no vomiting Objective - Vital Signs Vital signs: Vital Signs Temp 97.6 F 06/17/22 08:00 Pulse 64 06/17/22 08:15 Resp 17 06/17/22 08:15 BP 166/80 06/17/22 08:00 Pulse Ox 96 06/17/22 08:00 FiO2 Intake & Output 06/16/22 06/17/22 06/17/22 18:59 06:59 18:59 Intake Total 200 Output Total 145 660 60 Balance 55 -660 -60 Intake: Intake, IV Titration 200 Amount metroNIDAZOLE-NS PMX 500 200 mg In Saline 1 100ml.bag @ 100 mls/hr IVPB Q8H [facility] Rx#:[id number] Output: Drainage 145 110 60 Anterior Abdomen 145 110 60 Urine 550 Uretheral (Lucia) 550 Other: Voiding Method Indwelling Catheter Indwelling Catheter Indwelling Catheter # Voids 1 - Exam GENERAL DESCRIPTION: Middle-aged female lying in bed in no distress RESPIRATORY SYSTEM: Unlabored breathing , decreased breath sounds at bases HEART: S1 S2 regular rate and rhythm , ABDOMEN: Soft , abdominal incision is currently dressed EXTREMITIES: No edema feet - Labs CBC & Chem 7: 06/17/22 06:33 06/17/22 06:33 Labs: Abnormal Lab Results - Last 24 Hours (Table) 06/17/22 06/17/22 Range/Units 06:33 06:33 WBC 13.44 H (4.50-10.00) X 10*3/uL RBC 3.47 L (4.10-5.20) X 10*6/uL Hgb 10.4 L (12.0-15.0) g/dL Hct 32.7 L (37.2-46.3) % MCHC 31.8 L (32.0-37.0) g/dL RDW 15.3 H (11.5-14.5) % Neutrophils # (Manual) 12.90 H (2.00-8.90) X 10*3/uL Lymphocytes # (Manual) 0.27 L (0.90-5.00) X 10*3/uL Eosinophils # (Manual) 0 L (0.04-0.35) X 10*3/uL BUN/Creatinine Ratio 30.43 H (12.00-20.00) Ratio Glucose 148 H (70-110) mg/dL Calcium 8.3 L (8.7-10.3) mg/dL Microbiology - Last 24 Hours (Table) 06/14/22 20:04 Blood Culture - Preliminary Blood No Growth after 48 hours 06/14/22 20:10 Blood Culture - Preliminary Blood No Growth after 48 hours Assessment and Plan (1) Pelvic abscess Current Visit: No Status: Acute Code(s): [id number] - SNOMED Code(s): 254171242 (2) Perforation of sigmoid colon due to diverticulitis Current Visit: No Status: Acute Code(s): K57.20 - DVTRCLI OF LG INT W PERFORATION AND ABSCESS W/O BLEEDING SNOMED Code(s): 5876912844467610 Plan: 1patient presented to hospital with drainage around the CT-guided drainage catheter site and this patient noticed to have worsening of the intra-abdominal abscess and some inflammation around the drainage catheter site status post laparotomy and diverting colostomy and washout of the pelvic abscess unfortunately no cultures were done with the recent CT-guided fluid cultures were positive for E. coli strep and anaerobes 2patient did have some clinical improvement and will continue with the Unasyn 3 g every 6 hours and monitor clinical course closely Time with Patient: Less than 30
--- NOTE | 2022-06-17 18:07 | CT ---
EXAMINATION TYPE: CT hip LT w con DATE OF EXAM: 06/17/2022 COMPARISON: 06/14/2022 HISTORY: Follow up left hip abscess CT DLP: 1895.6 mGycm Automated exposure control for dose reduction was used. CONTRAST: Performed with IV Contrast, patient injected with 100cc mL of Isovue 300. Images obtained from the L4 level through the subtrochanteric femur with the IV contrast. FINDINGS: There is drainage catheter in the pelvis. There is a large complex fluid collection in the pelvis on the left side posterior to the rectosigmoid colon that measures 10 cm in length and consistent with a n abscess. There is air bubbles and increased density in the subcutaneous fat over the left buttock. This measur es approximately 9 x 6 cm. There is fat stranding in the subcutaneous tissues around the mass. There is been removal of the posterior drainage catheter in the pelvis on the left side compared to the old exam. There is Lucia catheter in the urinary bladder. The bony pelvis appears intact. No evidence of hip fracture. No focal bone destruction. IMPRESSION: Large abscess in the left buttock subcutaneous and partially intramuscular and appears approximately the same size as the last CT scan. There is a large pelvic abscess posteriorly on the left side not significantly different than last ex am.
[2022-06-18] MEDS: LACTATED RINGERS 1,000 ML IV SCH ×3 (00:01→14:52)
[2022-06-18] MEDS: metroNIDAZOLE-NS PMX 500 MG in SALINE 1 100ML.BAG IVPB SCH ×3 (05:01→20:35)
[2022-06-18] MEDS: HYDROmorphone 1 MG/ML 1 ML SYRINGE IVP PRN ×4 (05:02→20:33)
[2022-06-18] MEDS: AMPICILLIN-SULBACTAM 3 GM in SODIUM CHLORIDE 0.9% 100 ML IVPB SCH ×5 (06:06→17:30)
[2022-06-18 06:50] LABS: Glucose,Whole Blood 134 mg/dL (70-110)
[2022-06-18] MEDS: ENOXAPARIN 40 MG/0.4 ML SYRINGE SQ SCH (07:28)
[2022-06-18] MEDS: FAMOTIDINE 20 MG/2 ML VIAL IV SCH ×2 (07:28→20:35)
[2022-06-18] MEDS: GABAPENTIN 300 MG CAP PO PRN (10:33)
--- NOTE | 2022-06-18 11:09 | P.PN ---
Progress Note - Text Progress Note Date: 06/18/22 Patient still having pain and left hip. This pain is much more severe than her abdominal pain she states. Small amount of purulent drainage at the dressing site. The CAT scan shows persistent abscess collection within the left buttocks. We'll proceed with incision and drainage. Discussed with infectious disease. Will obtain deep cultures. Discussed with patient that we would be making a larger incision to allow this to drain better. We would be cleaning that tracked out. She is aware that there will likely be a Georgette drain left in there with some packing. She understands that there will be a wound there that we'll take some time to heal. She is agreeable to the procedure.
--- NOTE | 2022-06-18 11:25 | P.PN ---
Subjective Progress Note Date: 06/18/22 Hospital course: Patient is a very pleasant 57-year-old female with a past medical history of diverticulitis whom underwent recent hospitalization from 06/06/22 through 06/10/22 after presenting with left lower quadrant abdominal pain and being diagnosed with complicated perforated sigmoid diverticulitis which resulted and undergoing a CT guided drainage of her intra-abdominal abscess and drain was left in place. Patient presented to the hospital overnight with a chief complaint of decreased output from this drain and experiencing fecal appearing drainage around the drain insertion site. Patient reports this is accompanied by significant left lower quadrant abdominal pain and pain throughout her left buttocks. Patient denied having any fevers, chills, nausea, vomiting, or any urinary complaints. Patient reports when she was discharged home from the [facility] on 06/10/22 she was experiencing normal bowel movements however reports she has not had a bowel movement in over 2 days. Patient has been receiving IV antibiotics Rocephin and Flagyl managed through infectious disease on an outpatient basis. Previous culture results obtained upon insertion of abscess drainage catheter on 06/07/22 revealed anaerobic culture positive for gram- negative bacilli and Gram stain positive forbeta-hemolytic Streptococcus and E. coli. Upon arrival to the emergency department, patient underwent full evaluation. Labs completed revealing leukocytosis with a left shift with WBC count of 15.0, hypokalemia with potassium of 3.2, an elevated alkaline phosphatase of 127. Patient was admitted under Gen. surgery team and we were consulted for medical management throughout patient's hospitalization. CT abdomen and pelvis with contrast was obtained which revealed redemonstration of contained perforated sigmoid diverticulitis with slight increase in size of left pelvic abscess measuring up to 10.5 cm with larger a component (previously 7.1 cm) and a new foci of gas and edematous appearance of left piriformis and left gluteal musculature with surrounding fat stranding concerning for an infectious process, unable to exclude necrotizing fasciitis. general surgeon and infectious disease both notified. Rocephin discontinued and patient started on Unasyn per recommendation of infectious disease. General surgery took patient to OR and pt underwent a sigmoid colectomy with end colostomy placement. Progress Note Update: Pt is still c/o of abdominal pain. Going to OR today due to persistent abscess seen on Hip CT Physical exam: Gen: awake, alert HEENT: normocephalic, atraumatic, good hearing acuity, moist mucous membranes Resp: good air exchange, breathing comfortably with no accessory muscle use CVS: good distal perfusion x 4, GI: soft, NTTP, ND, ostomy : no SPT, no CVAT, sinclair catheter is present MSK: no pitting edema, no clubbing Neuro: non-focal, moving all extremities Psych: cooperative, euthymic mood Assessment and Plan of Care: Peritonitis Perforated sigmoid diverticulitis Leukocytosis Beta-hemolytic streptococcus and E. coli infection -Management through primary admitting general surgery team including DVT prophylaxis, pain management, wound care, and drain management. -Cultures obtained on 06/07/22 revealing anaerobic culture positive for gram- negative bacilli and Gram stain positive for beta-hemolytic Streptococcus and E. coli. -OR on 06/18 for I&D with toi drain placement, will await OR cultures from this -Patient to continue current IV antibiotics with Flagyl and Unasyn -Blood cultures - NGTD -Infectious disease Following -Symptomatic care and pain management -PT/OT Thank you for allowing us to participate in the care of this pleasant patient. Do not hesitate to contact us with questions. Someone can be reached from the [facility] hospitalist group all hours of the day at [phone] or via [employer]. Objective - Vital Signs Vital signs: Vital Signs Temp 98.5 F 06/18/22 02:02 Pulse 66 06/18/22 02:02 Resp 18 06/17/22 19:19 BP 136/77 06/18/22 02:02 Pulse Ox 95 06/18/22 02:02 FiO2 Intake & Output 06/17/22 06/18/22 06/18/22 18:59 06:59 18:59 Intake Total 100 Output Total 160 950 150 Balance -60 -950 -150 Weight 99.79 kg Intake: Intake, IV Titration 100 Amount metroNIDAZOLE-NS PMX 500 100 mg In Saline 1 100ml.bag @ 100 mls/hr IVPB Q8H [facility] Rx#:[id number] Output: Drainage 160 150 Anterior Abdomen 160 150 Urine 950 Other: Voiding Method Indwelling Catheter Indwelling Catheter Indwelling Catheter - Labs CBC & Chem 7: 06/17/22 06:33 06/17/22 06:33 Labs: Abnormal Lab Results - Last 24 Hours (Table) 06/17/22 06/17/22 06/18/22 Range/Units 06:33 06:33 06:45 WBC 13.44 H (4.50-10.00) X 10*3/uL RBC 3.47 L (4.10-5.20) X 10*6/uL Hgb 10.4 L (12.0-15.0) g/dL Hct 32.7 L (37.2-46.3) % MCHC 31.8 L (32.0-37.0) g/dL RDW 15.3 H (11.5-14.5) % Neutrophils # (Manual) 12.90 H (2.00-8.90) X 10*3/uL Lymphocytes # (Manual) 0.27 L (0.90-5.00) X 10*3/uL Eosinophils # (Manual) 0 L (0.04-0.35) X 10*3/uL BUN/Creatinine Ratio 30.43 H (12.00-20.00) Ratio Glucose 148 H (70-110) mg/dL POC Glucose (mg/dL) 134 H (70-110) mg/dL Calcium 8.3 L (8.7-10.3) mg/dL Microbiology - Last 24 Hours (Table) 06/14/22 20:04 Blood Culture - Preliminary Blood No Growth after 72 hours 06/14/22 20:10 Blood Culture - Preliminary Blood No Growth after 72 hours
[2022-06-18 11:26] LABS: Basophils # (A) 0.03 X 10*3/uL (0.00-0.10); Basophils % (A) 0.3 %; Eosinophils # (A) 0.04 X 10*3/uL (0.04-0.35); Eosinophils % (A) 0.3 %; HCT 31.3 % (37.2-46.3); Immature Grans, Automated 1.2 %; Lymphocytes # (A) 0.89 X 10*3/uL (0.90-5.00); Lymphocytes % (A) 7.8 %; MCH 29.3 pg (27.0-32.0); MCHC 31.9 g/dL (32.0-37.0); MCV 91.8 fL (80.0-97.0); Mean Platelet Volume 10.5 fL (9.5-12.2); Monocytes # (A) 0.37 X 10*3/uL (0.20-1.00); Monocytes % (A) 3.2 %; NRBC Per 100 WBC 0 /100 WBCS (0.0-0.0); Neutrophils # (A) 9.97 X 10*3/uL (1.80-7.70); Neutrophils % (A) 87.2 %; Platelet Count 225 X 10*3/uL (140-440); RBC 3.41 X 10*6/uL (4.10-5.20); RDW 14.8 % (11.5-14.5); WBC 11.44 X 10*3/uL (4.50-10.00)
[2022-06-18 11:48] LABS: African American GFR (CKD) 116.4 (60.0-200.0); Anion Gap 10.6 mmol/L (10.00-18.00); BUN/Creat Ratio 27.83 Ratio (12.00-20.00); Blood Urea Nitrogen 16.7 mg/dL (9.0-27.0); Carbon Dioxide 26.4 mmol/L (20.0-27.5); Non-African American GFR(CKD) 100.5 (60.0-200.0); Potassium 3.5 mmol/L (3.5-5.5)
[2022-06-18] MEDS ORDERED: SUCCINYLCHOLINE CHLORIDE 200 MG/10 ML VIAL IV ONE (11:50)
[2022-06-18] MEDS ORDERED: MIDAZOLAM 2 MG/2 ML VIAL ONE (11:50)
[2022-06-18] MEDS ORDERED: LIDOCAINE 2% INJ 20 MG/ML (2 ML VIAL) ONE (11:50)
[2022-06-18] MEDS ORDERED: PROPOFOL 10 MG/ML 20 ML VIAL IV ONE (11:50)
[2022-06-18] MEDS ORDERED: fentaNYL (PF) 50 MCG/ML 2 ML AMP ONE (11:50)
[2022-06-18] MEDS ORDERED: LACTATED RINGERS 1,000 ML IV ONE (11:56)
--- NOTE | 2022-06-18 12:47 | P.OP ---
Date of Procedure: 06/18/22 Procedure(s) Performed: PREOPERATIVE DIAGNOSIS: Left buttock abscess POSTOPERATIVE DIAGNOSIS: Same PROCEDURE: Incision and drainage left buttock abscess SURGEON: Randy EBL: 5 Mina ANESTHESIA: Gen. COMPLICATIONS: None OPERATIVE PROCEDURE: Patient placed in the right decubitus position after general anesthesia achieved. The previous drain site in the left medial aspect of her proximal by was incised using a horizontal incision measuring 3 cm. Dissection through the saphenous tissues took place using both blunt dissection and cautery. Entrance into a large abscess cavity took place. Cultures were taken. I followed the track of the purulence to the pelvis and then also inferiorly and laterally where the purulence seemed to come closer to the skin surface. I made a counterincision at that location measuring 2-3 cm horizontally. Again the subcutaneous tissues were divided using both blunt dis section and cautery. A Georgette drain was placed between these 2 incision sites. Careful irrigation took place until no further purulence was seen. Both wounds were packed with one-inch iodoform gauze. Sterile outer dressings were applied. I discussed the findings with the patient's son by phone. DISPOSITION: Stable to recovery room
[2022-06-18] MEDS ORDERED: HYDROmorphone 0.5 MG/0.5 ML SYRINGE IVP ONE ×2 (13:25→13:26)
[2022-06-18 16:50] LABS: Glucose,Whole Blood 151 mg/dL (70-110)
[2022-06-18 20:33] LABS: Glucose,Whole Blood 139 mg/dL (70-110)
--- NOTE | 2022-06-18 23:33 | P.PN ---
Subjective Progress Note Date: 06/18/22 Principal diagnosis: Perforated diverticulitis and intra-abdominal abscess Patient is a 57-year-old female who was recently admitted at this facility diagnosed with a perforated diverticulitis intra-abdominal abscess status post CT-guided drainage culture positive for E. coli and strep and anaerobes discharged on Rocephin and Flagyl subsequently presented back to the hospital with more pain and her drainage catheter site and no output patient was noticed to have worsening abscess and inflammation around the drainage catheter site patient is status post laparotomy diverting colostomy abdominal washout and no cultures. Patient did have CT of the left hip contusion shows large abscess and still showing the pelvic abscess unchanged from the previous CT On today's evaluation that is 06/18/2022, the patient remains to be afebrile, the patient denies any worsening abdominal pain however is still complaining of significant pain and drainage to the left gluteal area, patient denies having any chest pain shortness of breath or cough no nausea no vomiting Objective - Vital Signs Vital signs: Vital Signs Temp 97.9 F 06/18/22 12:58 Pulse 65 06/18/22 13:43 Resp 16 06/18/22 13:43 BP 134/61 06/18/22 13:43 Pulse Ox 92 L 06/18/22 13:43 FiO2 Intake & Output 06/17/22 06/18/22 06/18/22 18:59 06:59 18:59 Intake Total 100 550 Output Total 160 950 155 Balance -60 -950 395 Weight 99.79 kg Intake: IV 550 Intake, IV Titration 100 Amount metroNIDAZOLE-NS PMX 500 100 mg In Saline 1 100ml.bag @ 100 mls/hr IVPB Q8H [facility] Rx#:[id number] Output: Drainage 160 150 Anterior Abdomen 160 150 Urine 950 Estimated Blood Loss 5 Other: Voiding Method Indwelling Catheter Indwelling Catheter Indwelling Catheter - Exam GENERAL DESCRIPTION: Middle-aged female lying in bed in no distress RESPIRATORY SYSTEM: Unlabored breathing , decreased breath sounds at bases HEART: S1 S2 regular rate and rhythm , ABDOMEN: Soft , abdominal incision is currently dressed EXTREMITIES: No edema feet - Labs CBC & Chem 7: 06/18/22 07:18 06/18/22 07:18 Labs: Abnormal Lab Results - Last 24 Hours (Table) 06/18/22 06/18/22 06/18/22 Range/Units 06:45 07:18 07:18 WBC 11.44 H (4.50-10.00) X 10*3/uL RBC 3.41 L (4.10-5.20) X 10*6/uL Hgb 10.0 L (12.0-15.0) g/dL Hct 31.3 L (37.2-46.3) % MCHC 31.9 L (32.0-37.0) g/dL RDW 14.8 H (11.5-14.5) % Immature Gran # 0.14 H (0.00-0.04) X 10*3/uL Neutrophils # 9.97 H (1.80-7.70) X 10*3/uL Lymphocytes # 0.89 L (0.90-5.00) X 10*3/uL BUN/Creatinine Ratio 27.83 H (12.00-20.00) Ratio Glucose 112 H (70-110) mg/dL POC Glucose (mg/dL) 134 H (70-110) mg/dL Calcium 8.0 L (8.7-10.3) mg/dL Microbiology - Last 24 Hours (Table) 06/14/22 20:04 Blood Culture - Preliminary Blood No Growth after 72 hours 06/14/22 20:10 Blood Culture - Preliminary Blood No Growth after 72 hours Assessment and Plan (1) Pelvic abscess Current Visit: No Status: Acute Code(s): NHE5545 - SNOMED Code(s): 723739370 (2) Perforation of sigmoid colon due to diverticulitis Current Visit: No Status: Acute Code(s): K57.20 - DVTRCLI OF LG INT W PERFORATION AND ABSCESS W/O BLEEDING SNOMED Code(s): 7134484543669069 Plan: 1patient presented to hospital with drainage around the CT-guided drainage catheter site and this patient noticed to have worsening of the intra-abdominal abscess and some inflammation around the drainage catheter site status post laparotomy and diverting colostomy and washout of the pelvic abscess unfortunately no cultures were done with the recent CT-guided fluid cultures were positive for E. coli strep and anaerobes 2patient did have a CT of the hip showing a large antral muscular abscess and the pelvic abscess was unchanged patient is status post drainage of the left scrotal abscess and culture which will be followed 3-patient to continue with Unasyn and will adjust antibiotic for another on the basis of repeat Culture, Time with Patient: Less than 30
[2022-06-19] MEDS: AMPICILLIN-SULBACTAM 3 GM in SODIUM CHLORIDE 0.9% 100 ML IVPB SCH ×4 (00:53→17:30)
[2022-06-19] MEDS: HYDROmorphone 1 MG/ML 1 ML SYRINGE IVP PRN ×6 (00:53→21:37)
[2022-06-19] MEDS: LACTATED RINGERS 1,000 ML IV SCH ×3 (01:03→17:31)
[2022-06-19] MEDS: metroNIDAZOLE-NS PMX 500 MG in SALINE 1 100ML.BAG IVPB SCH ×3 (05:07→21:36)
[2022-06-19 07:03] LABS: Glucose,Whole Blood 122 mg/dL (70-110)
[2022-06-19] MEDS: FAMOTIDINE 20 MG/2 ML VIAL IV SCH ×2 (08:19→21:33)
[2022-06-19] MEDS: ENOXAPARIN 40 MG/0.4 ML SYRINGE SQ SCH (08:19)
--- NOTE | 2022-06-19 11:22 | P.PN ---
Subjective Progress Note Date: 06/19/22 Hospital course: Patient is a very pleasant 57-year-old female with a past medical history of diverticulitis whom underwent recent hospitalization from 06/06/22 through 06/10/22 after presenting with left lower quadrant abdominal pain and being diagnosed with complicated perforated sigmoid diverticulitis which resulted and undergoing a CT guided drainage of her intra-abdominal abscess and drain was left in place. Patient presented to the hospital overnight with a chief complaint of decreased output from this drain and experiencing fecal appearing drainage around the drain insertion site. Patient reports this is accompanied by significant left lower quadrant abdominal pain and pain throughout her left buttocks. Patient denied having any fevers, chills, nausea, vomiting, or any urinary complaints. Patient reports when she was discharged home from the [facility] on 06/10/22 she was experiencing normal bowel movements however reports she has not had a bowel movement in over 2 days. Patient has been receiving IV antibiotics Rocephin and Flagyl managed through infectious disease on an outpatient basis. Previous culture results obtained upon insertion of abscess drainage catheter on 06/07/22 revealed anaerobic culture positive for gram- negative bacilli and Gram stain positive forbeta-hemolytic Streptococcus and E. coli. Upon arrival to the emergency department, patient underwent full evaluation. Labs completed revealing leukocytosis with a left shift with WBC count of 15.0, hypokalemia with potassium of 3.2, an elevated alkaline phosphatase of 127. Patient was admitted under Gen. surgery team and we were consulted for medical management throughout patient's hospitalization. CT abdomen and pelvis with contrast was obtained which revealed redemonstration of contained perforated sigmoid diverticulitis with slight increase in size of left pelvic abscess measuring up to 10.5 cm with larger a component (previously 7.1 cm) and a new foci of gas and edematous appearance of left piriformis and left gluteal musculature with surrounding fat stranding concerning for an infectious process, unable to exclude necrotizing fasciitis. general surgeon and infectious disease both notified. Rocephin discontinued and patient started on Unasyn per recommendation of infectious disease. General surgery took patient to OR and pt underwent a sigmoid colectomy with end colostomy placement. Progress Note Update: Pt is still c/o of abdominal pain, but significantly improved after OR yesterday and toi drain. Physical exam: Gen: awake, alert HEENT: normocephalic, atraumatic, good hearing acuity, moist mucous membranes Resp: good air exchange, breathing comfortably with no accessory muscle use CVS: good distal perfusion x 4, GI: soft, NTTP, ND, ostomy : no SPT, no CVAT, sinclair catheter is present MSK: no pitting edema, no clubbing Neuro: non-focal, moving all extremities Psych: cooperative, euthymic mood Assessment and Plan of Care: Peritonitis Perforated sigmoid diverticulitis Leukocytosis Beta-hemolytic streptococcus and E. coli infection -Management through primary admitting general surgery team including DVT prophylaxis, pain management, wound care, and drain management. -Cultures obtained on 06/07/22 revealing anaerobic culture positive for gram- negative bacilli and Gram stain positive for beta-hemolytic Streptococcus and E. coli. -OR on 06/18 for I&D with toi drain placement, will await OR cultures from this -Patient to continue current IV antibiotics with Flagyl and Unasyn -Blood cultures - NGTD -Infectious disease Following -Symptomatic care and pain management -PT/OT Thank you for allowing us to participate in the care of this pleasant patient. Do not hesitate to contact us with questions. Someone can be reached from the [facility] hospitalist group all hours of the day at [phone] or via [employer]. Objective - Vital Signs Vital signs: Vital Signs Temp 98.1 F 06/19/22 07:42 Pulse 64 06/19/22 07:42 Resp 18 06/19/22 07:42 BP 129/82 06/19/22 07:42 Pulse Ox 98 06/19/22 07:42 FiO2 Intake & Output 06/18/22 06/19/22 06/19/22 18:59 06:59 18:59 Intake Total 550 Output Total 925 720 Balance -375 -720 Intake: IV 550 Output: Drainage 270 120 Anterior Abdomen 270 120 Urine 650 600 Estimated Blood Loss 5 Other: Voiding Method Indwelling Catheter - Labs CBC & Chem 7: 06/18/22 07:18 06/18/22 07:18 Labs: Abnormal Lab Results - Last 24 Hours (Table) 06/18/22 06/18/22 06/18/22 Range/Units 07:18 07:18 16:48 WBC 11.44 H (4.50-10.00) X 10*3/uL RBC 3.41 L (4.10-5.20) X 10*6/uL Hgb 10.0 L (12.0-15.0) g/dL Hct 31.3 L (37.2-46.3) % MCHC 31.9 L (32.0-37.0) g/dL RDW 14.8 H (11.5-14.5) % Immature Gran # 0.14 H (0.00-0.04) X 10*3/uL Neutrophils # 9.97 H (1.80-7.70) X 10*3/uL Lymphocytes # 0.89 L (0.90-5.00) X 10*3/uL BUN/Creatinine Ratio 27.83 H (12.00-20.00) Ratio Glucose 112 H (70-110) mg/dL POC Glucose (mg/dL) 151 H (70-110) mg/dL Calcium 8.0 L (8.7-10.3) mg/dL 06/18/22 06/19/22 Range/Units 20:30 07:01 WBC (4.50-10.00) X 10*3/uL RBC (4.10-5.20) X 10*6/uL Hgb (12.0-15.0) g/dL Hct (37.2-46.3) % MCHC (32.0-37.0) g/dL RDW (11.5-14.5) % Immature Gran # (0.00-0.04) X 10*3/uL Neutrophils # (1.80-7.70) X 10*3/uL Lymphocytes # (0.90-5.00) X 10*3/uL BUN/Creatinine Ratio (12.00-20.00) Ratio Glucose (70-110) mg/dL POC Glucose (mg/dL) 139 H 122 H (70-110) mg/dL Calcium (8.7-10.3) mg/dL Microbiology - Last 24 Hours (Table) 06/14/22 20:04 Blood Culture - Preliminary Blood No Growth after 96 hours 06/14/22 20:10 Blood Culture - Preliminary Blood No Growth after 96 hours
[2022-06-19 11:27] LABS: Glucose,Whole Blood 109 mg/dL (70-110)
--- NOTE | 2022-06-19 11:38 | P.PN ---
Subjective Progress Note Date: 06/19/22 Principal diagnosis: Diverticulitis Patient says her left buttock pain is improved. She did have a moderate amount of drainage overnight. She is tolerating diet at this time. Flatus and the ostomy appliance. Objective - Vital Signs Vital signs: Vital Signs Temp 98.1 F 06/19/22 07:42 Pulse 64 06/19/22 07:42 Resp 18 06/19/22 07:42 BP 129/82 06/19/22 07:42 Pulse Ox 98 06/19/22 07:42 FiO2 Intake & Output 06/18/22 06/19/22 06/19/22 18:59 06:59 18:59 Intake Total 550 Output Total 925 720 Balance -375 -720 Intake: IV 550 Output: Drainage 270 120 Anterior Abdomen 270 120 Urine 650 600 Estimated Blood Loss 5 Other: Voiding Method Indwelling Catheter - Exam Abdomen: Soft, nondistended, lower aspect of incision open with servicing as drainage, ostomy with air present Left buttock with 2 separate incisions draining small amount of purulent fluid, [place] drain in place - Labs CBC & Chem 7: 06/18/22 07:18 06/18/22 07:18 Labs: Abnormal Lab Results - Last 24 Hours (Table) 06/18/22 06/18/22 06/18/22 Range/Units 07:18 16:48 20:30 BUN/Creatinine Ratio 27.83 H (12.00-20.00) Ratio Glucose 112 H (70-110) mg/dL POC Glucose (mg/dL) 151 H 139 H (70-110) mg/dL Calcium 8.0 L (8.7-10.3) mg/dL 06/19/22 Range/Units 07:01 BUN/Creatinine Ratio (12.00-20.00) Ratio Glucose (70-110) mg/dL POC Glucose (mg/dL) 122 H (70-110) mg/dL Calcium (8.7-10.3) mg/dL Microbiology - Last 24 Hours (Table) 06/14/22 20:04 Blood Culture - Preliminary Blood No Growth after 96 hours 06/14/22 20:10 Blood Culture - Preliminary Blood No Growth after 96 hours Assessment and Plan (1) Colonic diverticular abscess Narrative/Plan: Patient seems to have improvement in her pain after the incision and drainage yesterday. Await cultures. Continue antibiotics. Continue full liquid diet. Current Visit: Yes Status: Acute Code(s): K57.20 - DVTRCLI OF LG INT W PERFORATION AND ABSCESS W/O BLEEDING SNOMED Code(s): 482556104
--- NOTE | 2022-06-19 15:07 | P.PN ---
Subjective Progress Note Date: 06/19/22 Principal diagnosis: Perforated diverticulitis and intra-abdominal abscess Patient is a 57-year-old female who was recently admitted at this facility diagnosed with a perforated diverticulitis intra-abdominal abscess status post CT-guided drainage culture positive for E. coli and strep and anaerobes discharged on Rocephin and Flagyl subsequently presented back to the hospital with more pain and her drainage catheter site and no output patient was noticed to have worsening abscess and inflammation around the drainage catheter site patient is status post laparotomy diverting colostomy abdominal washout and no cultures. Patient did have CT of the left hip contusion shows large abscess and still showing the pelvic abscess unchanged from the previous CT On today's evaluation that is 06/19/2022, the patient continues to be afebrile, the patient abdominal as well as the left gluteal pain is currently controlled, the patient denies having any chest pain or shortness of breath or cough no nausea no vomiting or diarrhea Objective - Vital Signs Vital signs: Vital Signs Temp 98.1 F 06/19/22 13:55 Pulse 68 06/19/22 13:55 Resp 17 06/19/22 13:55 BP 112/48 06/19/22 13:55 Pulse Ox 95 06/19/22 13:55 FiO2 Intake & Output 06/18/22 06/19/22 06/19/22 18:59 06:59 18:59 Intake Total 550 Output Total 925 720 370 Balance -375 -720 -370 Intake: IV 550 Output: Drainage 270 120 70 Anterior Abdomen 270 120 Left Buttock 70 Urine 650 600 300 Estimated Blood Loss 5 Other: Voiding Method Indwelling Catheter - Exam GENERAL DESCRIPTION: Middle-aged female lying in bed in no distress RESPIRATORY SYSTEM: Unlabored breathing , decreased breath sounds at bases HEART: S1 S2 regular rate and rhythm , ABDOMEN: Soft , abdominal incision is currently dressed EXTREMITIES: No edema feet - Labs CBC & Chem 7: 06/18/22 07:18 06/18/22 07:18 Labs: Abnormal Lab Results - Last 24 Hours (Table) 06/18/22 06/18/22 06/19/22 Range/Units 16:48 20:30 07:01 POC Glucose (mg/dL) 151 H 139 H 122 H (70-110) mg/dL Microbiology - Last 24 Hours (Table) 06/14/22 20:04 Blood Culture - Preliminary Blood No Growth after 96 hours 06/14/22 20:10 Blood Culture - Preliminary Blood No Growth after 96 hours Assessment and Plan (1) Pelvic abscess Current Visit: No Status: Acute Code(s): GBV3273 - SNOMED Code(s): 020355862 (2) Perforation of sigmoid colon due to diverticulitis Current Visit: No Status: Acute Code(s): K57.20 - DVTRCLI OF LG INT W PERFORATION AND ABSCESS W/O BLEEDING SNOMED Code(s): 2978390816584895 Plan: 1patient presented to hospital with drainage around the CT-guided drainage catheter site and this patient noticed to have worsening of the intra-abdominal abscess and some inflammation around the drainage catheter site status post laparotomy and diverting colostomy and washout of the pelvic abscess unfortunately no cultures were done with the recent CT-guided fluid cultures were positive for E. coli strep and anaerobes 2patient did have a CT of the hip showing a large antral muscular abscess and the pelvic abscess was unchanged patient is status post drainage of the left gluteal abscess and culture are currently pending 3-patient to continue with Unasyn and antibiotics will be adjusted further on the basis of culture report Time with Patient: Less than 30
[2022-06-19 16:48] LABS: Glucose,Whole Blood 110 mg/dL (70-110)
[2022-06-19 20:17] LABS: Glucose,Whole Blood 108 mg/dL (70-110)
[2022-06-20] MEDS: AMPICILLIN-SULBACTAM 3 GM in SODIUM CHLORIDE 0.9% 100 ML IVPB SCH ×5 (00:04→23:31)
[2022-06-20] MEDS: LACTATED RINGERS 1,000 ML IV SCH ×4 (01:08→21:21)
[2022-06-20] MEDS: HYDROmorphone 1 MG/ML 1 ML SYRINGE IVP PRN ×2 (04:11→10:07)
[2022-06-20] MEDS: metroNIDAZOLE-NS PMX 500 MG in SALINE 1 100ML.BAG IVPB SCH ×3 (04:12→20:05)
[2022-06-20 06:54] LABS: Glucose,Whole Blood 111 mg/dL (70-110)
[2022-06-20] MEDS: FAMOTIDINE 20 MG/2 ML VIAL IV SCH ×2 (07:56→20:05)
[2022-06-20] MEDS: ENOXAPARIN 40 MG/0.4 ML SYRINGE SQ SCH (07:57)
[2022-06-20 09:15] LABS: Basophils % (A) 0 %; Eosinophils # (A) 0.1 k/uL (0-0.7); Eosinophils % (A) 1 %; HGB 10.6 gm/dL (11.4-16.0); Lymphocytes # (A) 0.7 k/uL (1.0-4.8); Lymphocytes % (A) 8 %; MCH 29.3 pg (25.0-35.0); MCHC 32.2 g/dL (31.0-37.0); Mean Platelet Volume 9.5; Monocytes # (A) 0.3 k/uL (0-1.0); Monocytes % (A) 3 %; Neutrophils # (A) 7.6 k/uL (1.3-7.7); Neutrophils % (A) 88 %; Platelet Count 210 k/uL (150-450); RBC 3.63 m/uL (3.80-5.40); RDW 14.8 % (11.5-15.5); WBC 8.7 k/uL (3.8-10.6)
[2022-06-20 09:35] LABS: African American GFR (CKD) >90 (>60 ml/min/1.73 sqM); Anion Gap 5 mmol/L; Blood Urea Nitrogen 8 mg/dL (7-17); Calcium 7.3 mg/dL (8.4-10.2); Carbon Dioxide 29 mmol/L (22-30); Chloride 103 mmol/L (98-107); Glucose 102 mg/dL (74-99); Non-African American GFR(CKD) >90 (>60 ml/min/1.73 sqM); Potassium 3.3 mmol/L (3.5-5.1); Sodium 137 mmol/L (137-145)
--- NOTE | 2022-06-20 10:45 | P.PN ---
Subjective Progress Note Date: 06/20/22 Hospital course: Patient is a very pleasant 57-year-old female with a past medical history of diverticulitis whom underwent recent hospitalization from 06/06/22 through 06/10/22 after presenting with left lower quadrant abdominal pain and being diagnosed with complicated perforated sigmoid diverticulitis which resulted and undergoing a CT guided drainage of her intra-abdominal abscess and drain was left in place. Patient presented to the hospital overnight with a chief complaint of decreased output from this drain and experiencing fecal appearing drainage around the drain insertion site. Patient reports this is accompanied by significant left lower quadrant abdominal pain and pain throughout her left buttocks. Patient denied having any fevers, chills, nausea, vomiting, or any urinary complaints. Patient reports when she was discharged home from the [facility] on 06/10/22 she was experiencing normal bowel movements however reports she has not had a bowel movement in over 2 days. Patient has been receiving IV antibiotics Rocephin and Flagyl managed through infectious disease on an outpatient basis. Previous culture results obtained upon insertion of abscess drainage catheter on 06/07/22 revealed anaerobic culture positive for gram- negative bacilli and Gram stain positive forbeta-hemolytic Streptococcus and E. coli. Upon arrival to the emergency department, patient underwent full evaluation. Labs completed revealing leukocytosis with a left shift with WBC count of 15.0, hypokalemia with potassium of 3.2, an elevated alkaline phosphatase of 127. Patient was admitted under Gen. surgery team and we were consulted for medical management throughout patient's hospitalization. CT abdomen and pelvis with contrast was obtained which revealed redemonstration of contained perforated sigmoid diverticulitis with slight increase in size of left pelvic abscess measuring up to 10.5 cm with larger a component (previously 7.1 cm) and a new foci of gas and edematous appearance of left piriformis and left gluteal musculature with surrounding fat stranding concerning for an infectious process, unable to exclude necrotizing fasciitis. general surgeon and infectious disease both notified. Rocephin discontinued and patient started on Unasyn per recommendation of infectious disease. General surgery took patient to OR and pt underwent a sigmoid colectomy with end colostomy placement. Progress Note Update: Pt is resting in bed comfortably today. Cx growing GNR, pending speciation Physical exam: Gen: awake, alert HEENT: normocephalic, atraumatic, good hearing acuity, moist mucous membranes Resp: good air exchange, breathing comfortably with no accessory muscle use CVS: good distal perfusion x 4, GI: soft, NTTP, ND, ostomy : no SPT, no CVAT, sinclair catheter is present MSK: no pitting edema, no clubbing Neuro: non-focal, moving all extremities Psych: cooperative, euthymic mood Assessment and Plan of Care: Peritonitis Perforated sigmoid diverticulitis Leukocytosis Beta-hemolytic streptococcus and E. coli infection -Management through primary admitting general surgery team including DVT prophylaxis, pain management, wound care, and drain management. -Cultures obtained on 06/07/22 revealing anaerobic culture positive for gram-nega tive bacilli and Gram stain positive for beta-hemolytic Streptococcus and E. coli. -OR on 06/18 for I&D with toi drain placement, will await OR cultures from this -Patient to continue current IV antibiotics with Flagyl and Unasyn -Blood cultures - NGTD -Infectious disease Following -Symptomatic care and pain management -PT/OT Thank you for allowing us to participate in the care of this pleasant patient. Do not hesitate to contact us with questions. Someone can be reached from the [facility] hospitalist group all hours of the day at [phone] or via [employer]. Objective - Vital Signs Vital signs: Vital Signs Temp 98.1 F 06/20/22 08:04 Pulse 60 06/20/22 08:04 Resp 15 06/20/22 08:04 BP 163/68 06/20/22 08:04 Pulse Ox 98 06/20/22 08:04 FiO2 Intake & Output 06/19/22 06/20/22 06/20/22 18:59 06:59 18:59 Output Total 430 1480 70 Balance -430 -1480 -70 Output: Drainage 130 180 70 Anterior Abdomen 180 Left Buttock 130 70 Urine 300 1300 Other: Voiding Method Indwelling Catheter Indwelling Catheter - Labs CBC & Chem 7: 06/20/22 08:55 06/20/22 08:55 Labs: Abnormal Lab Results - Last 24 Hours (Table) 06/20/22 06/20/22 06/20/22 Range/Units 06:53 08:55 08:55 RBC 3.63 L (3.80-5.40) m/uL Hgb 10.6 L (11.4-16.0) gm/dL Hct 33.0 L (34.0-46.0) % Lymphocytes # 0.7 L (1.0-4.8) k/uL Potassium 3.3 L (3.5-5.1) mmol/L Glucose 102 H (74-99) mg/dL POC Glucose (mg/dL) 111 H (70-110) mg/dL Calcium 7.3 L (8.4-10.2) mg/dL Microbiology - Last 24 Hours (Table) 06/18/22 12:40 Gram Stain - Preliminary Buttock Wound Culture - Preliminary Gram Neg Bacilli 06/14/22 20:04 Blood Culture - Preliminary Blood No Growth after 120 hours 06/14/22 20:10 Blood Culture - Preliminary Blood No Growth after 120 hours 06/18/22 12:40 Anaerobic Culture - Preliminary Buttock
[2022-06-20] MEDS ORDERED: POTASSIUM CHLORIDE ER 20 MEQ TAB.ER PO STA (11:05)
--- NOTE | 2022-06-20 11:10 | P.PN ---
Subjective Progress Note Date: 06/20/22 CHIEF COMPLAINT: Perforated diverticulitis with abscess HISTORY OF PRESENT ILLNESS: Patient is postop day #6 status post sigmoid colectomy with end colostomy and washout of pelvic abscess for perforated di verticulitis with abscess. Over the weekend patient had I&D of the left buttock abscess on 06/18/2022. Patient reports improvement in her pain in the left buttocks. She has [place]ib[place] drain in place. She continues to have drainage from the [place] drain purulent in color. She does report pain but states that overall she is continuing to feel better each day. She does have very small amount of stool on the stoma. She has been having air in the classroom bag. She denies any nausea or vomiting. Reports poor oral intake. Supposedly catheter in place. Per nursing staff she is not ambulating like she should. Afebrile. WC has normalized from 11.44-8.7 Hgb 10.6 platelets 210 sodium is 137 potassium is 3.3 creatinine 0.46 wound culture of left buttocks growing gram- negative bacilli PHYSICAL EXAM: VITAL SIGNS: Reviewed. GENERAL: Well-developed in no acute distress. HEENT: No sclera icterus. Extraocular movements grossly intact. Moist buccal mucosa. Head is atraumatic, normocephalic. ABDOMEN: Soft. Nondistended. Stoma pink with small piece of stool. Incision site clean dry and intact. The lower incision is open to drain and has packing in place. No erythema NEURO: Alert and oriented. Cranial nerves II through XII grossly intact. SKIN: Left buttocks soft minimal tenderness with palpation. Hib[place] drain in place with purulent drainage noted ASSESSMENT: 1. Perforated diverticulitis with abscess status post sigmoid colectomy with end colostomy and washout of pelvic abscess 2. Left buttock abscess status post incision and drainage 3. Hypokalemia PLAN: -Add [place] to help with pain relief -Add ensure for protein supplement -Discontinue Lucia catheter -Encourage patient to ambulate -Encouraged patient to shower -Encourage patient to use incentive spirometer -Continue local wound care -Continue full liquid diet -Replace potassium -Continue antibiotics -GI prophylaxis Pepcid and DVT prophylaxis Lovenox Physician Coat Room Attendant note has been reviewed by physician. Signing provider agrees with the documented findings, assessment, and plan of care. I have personally seen and examined the patient, reviewed the ROLLER MAN /PAs history, exam and MDM and agree with the assessment and plan as written. Based on total visit time, I have performed more than 50% of the visit. As above: Patient says she continues to fill slowly better. Plan is to get her in the shower today. Amount of drainage from the buttock incision and drainage sites is improved. Continue antibiotics. Follow cultures. Will defer further management and future management to Dr. Conti at this point. Objective - Vital Signs Vital signs: Vital Signs Temp 98.1 F 06/20/22 08:04 Pulse 60 06/20/22 08:04 Resp 15 06/20/22 08:04 BP 163/68 06/20/22 08:04 Pulse Ox 98 06/20/22 08:04 FiO2 Intake & Output 06/19/22 06/20/22 06/20/22 18:59 06:59 18:59 Output Total 430 1480 70 Balance -430 -1480 -70 Output: Drainage 130 180 70 Anterior Abdomen 180 Left Buttock 130 70 Urine 300 1300 Other: Voiding Method Indwelling Catheter Indwelling Catheter - Labs CBC & Chem 7: 06/20/22 08:55 06/20/22 08:55 Labs: Abnormal Lab Results - Last 24 Hours (Table) 06/20/22 06/20/22 06/20/22 Range/Units 06:53 08:55 08:55 RBC 3.63 L (3.80-5.40) m/uL Hgb 10.6 L (11.4-16.0) gm/dL Hct 33.0 L (34.0-46.0) % Lymphocytes # 0.7 L (1.0-4.8) k/uL Potassium 3.3 L (3.5-5.1) mmol/L Glucose 102 H (74-99) mg/dL POC Glucose (mg/dL) 111 H (70-110) mg/dL Calcium 7.3 L (8.4-10.2) mg/dL Microbiology - Last 24 Hours (Table) 06/18/22 12:40 Gram Stain - Preliminary Buttock Wound Culture - Preliminary Gram Neg Bacilli 06/14/22 20:04 Blood Culture - Preliminary Blood No Growth after 120 hours 06/14/22 20:10 Blood Culture - Preliminary Blood No Growth after 120 hours 06/18/22 12:40 Anaerobic Culture - Preliminary Buttock
[2022-06-20 11:27] LABS: Glucose,Whole Blood 137 mg/dL (70-110)
[2022-06-20] MEDS: HYDROcodone/APAP 5-325MG 1 EACH TAB PO PRN ×3 (13:26→23:32)
[2022-06-20] MEDS: ZOLPIDEM 5 MG TAB PO PRN (20:05)
[2022-06-21] MEDS: HYDROmorphone 1 MG/ML 1 ML SYRINGE IVP PRN ×3 (02:12→22:45)
[2022-06-21] MEDS: metroNIDAZOLE-NS PMX 500 MG in SALINE 1 100ML.BAG IVPB SCH ×3 (05:24→20:30)
[2022-06-21] MEDS: AMPICILLIN-SULBACTAM 3 GM in SODIUM CHLORIDE 0.9% 100 ML IVPB SCH (06:43)
[2022-06-21] MEDS: ENOXAPARIN 40 MG/0.4 ML SYRINGE SQ SCH (07:57)
[2022-06-21] MEDS: HYDROcodone/APAP 5-325MG 1 EACH TAB PO PRN ×2 (07:57→16:17)
[2022-06-21] MEDS: FAMOTIDINE 20 MG/2 ML VIAL IV SCH ×2 (07:58→20:30)
[2022-06-21] MEDS: LACTATED RINGERS 1,000 ML IV SCH (08:06)
[2022-06-21 09:09] LABS: Basophils % (A) 0 %; Eosinophils # (A) 0.1 k/uL (0-0.7); Eosinophils % (A) 1 %; HCT 34.3 % (34.0-46.0); HGB 11.2 gm/dL (11.4-16.0); Hypochromasia Slight; Lymphocytes # (A) 0.7 k/uL (1.0-4.8); Lymphocytes % (A) 8 %; MCH 30.1 pg (25.0-35.0); MCHC 32.6 g/dL (31.0-37.0); MCV 92.4 fL (80.0-100.0); Mean Platelet Volume 8.9; Monocytes # (A) 0.3 k/uL (0-1.0); Monocytes % (A) 3 %; Neutrophils # (A) 8.5 k/uL (1.3-7.7); Neutrophils % (A) 88 %; Platelet Count 229 k/uL (150-450); RBC 3.71 m/uL (3.80-5.40); WBC 9.6 k/uL (3.8-10.6)
[2022-06-21 09:30] LABS: African American GFR (CKD) >90 (>60 ml/min/1.73 sqM); Anion Gap 9 mmol/L; Blood Urea Nitrogen 6 mg/dL (7-17); Calcium 7.3 mg/dL (8.4-10.2); Carbon Dioxide 26 mmol/L (22-30); Chloride 100 mmol/L (98-107); Glucose 107 mg/dL (74-99); Non-African American GFR(CKD) >90 (>60 ml/min/1.73 sqM); Potassium 3.1 mmol/L (3.5-5.1); Sodium 135 mmol/L (137-145)
[2022-06-21] MEDS ORDERED: PIPERACILLIN-TAZOBACTAM 3.375 GM in SODIUM CHLORIDE 0.9% 100 ML IVPB STA (10:54)
[2022-06-21] MEDS ORDERED: POTASSIUM CHLORIDE ER 20 MEQ TAB.ER PO STA (11:52)
--- NOTE | 2022-06-21 12:38 | P.PN ---
Subjective Progress Note Date: 06/21/22 CHIEF COMPLAINT: Perforated diverticulitis with abscess HISTORY OF PRESENT ILLNESS: Patient is postop day #7 status post sigmoid colectomy with end colostomy and washout of pelvic abscess for perforated di verticulitis with abscess. Over the weekend patient had I&D of the left buttock abscess on 06/18/2022. Patient complaining of left buttock pain and back pain. Patient still has been requiring the IV pain medication. The pain has not gotten worse. Her ostomy is functioning. Denies any nausea or vomiting. Oral intake still diminished but showing improvement. EMELIA drain with 350 ML of serosanguineous output throughout the day and 70 mL this morning. Afebrile. WBC 9.6 Hgb 11.2 platelets 229 sodium 135 potassium 3.1 creatinine 0.56 wound culture growing Pseudomonas. Antibiotics switched to Zosyn by infectious disease. Patient seen and examined with Dr. Conti PHYSICAL EXAM: VITAL SIGNS: Reviewed. GENERAL: Well-developed in no acute distress. HEENT: No sclera icterus. Extraocular movements grossly intact. Moist buccal mucosa. Head is atraumatic, normocephalic. ABDOMEN: Soft. Nondistended. Stoma pink with stool. Incision site clean dry and intact. The lower incision is open to drain and has packing in place. No erythema NEURO: Alert and oriented. Cranial nerves II through XII grossly intact. SKIN: Left buttocks soft minimal tenderness with palpation. Georgette drain in place with purulent drainage noted ASSESSMENT: 1. Perforated diverticulitis with abscess status post sigmoid colectomy with end colostomy and washout of pelvic abscess 2. Left buttock abscess status post incision and drainage 3. Hypokalemia PLAN: -Discussed case with infectious disease. The recommending IV antibiotics at discharge. Patient already has PICC line in place. -Continue to work with PT OT -manager mechanical on consult for possible placement -Change gabapentin to scheduled to help with pain control -Continue [place] to help with pain relief -Continue ensure for protein supplement -Encourage patient to ambulate -Encourage patient to use incentive spirometer -Continue local wound care -Continue full liquid diet -Replace potassium -Check magnesium level -GI prophylaxis Pepcid and DVT prophylaxis Lovenox Physician Director Software Development note has been reviewed by physician. Signing provider agrees with the documented findings, assessment, and plan of care. Objective - Vital Signs Vital signs: Vital Signs Temp 98.0 F 06/21/22 08:00 Pulse 65 06/21/22 08:00 Resp 16 06/21/22 01:20 BP 146/78 06/21/22 08:00 Pulse Ox 99 06/21/22 08:00 FiO2 Intake & Output 06/20/22 06/21/22 06/21/22 18:59 06:59 18:59 Output Total 170 70 Balance -170 -70 Weight 99.79 kg Output: Drainage 170 70 Anterior Abdomen 100 Left Buttock 70 70 Other: Voiding Method Indwelling Catheter Toilet Toilet # Voids 5 2 - Labs CBC & Chem 7: 06/21/22 08:36 06/21/22 08:36 Labs: Abnormal Lab Results - Last 24 Hours (Table) 06/21/22 06/21/22 Range/Units 08:36 08:36 RBC 3.71 L (3.80-5.40) m/uL Hgb 11.2 L (11.4-16.0) gm/dL Neutrophils # 8.5 H (1.3-7.7) k/uL Lymphocytes # 0.7 L (1.0-4.8) k/uL Sodium 135 L (137-145) mmol/L Potassium 3.1 L (3.5-5.1) mmol/L BUN 6 L (7-17) mg/dL Glucose 107 H (74-99) mg/dL Calcium 7.3 L (8.4-10.2) mg/dL Microbiology - Last 24 Hours (Table) 06/18/22 12:40 Gram Stain - Final Buttock Wound Culture - Final Pseudomonas aeruginosa 06/14/22 20:04 Blood Culture - Final Blood No Growth after 144 hours 06/14/22 20:10 Blood Culture - Final Blood No Growth after 144 hours
[2022-06-21] MEDS: GABAPENTIN 300 MG CAP PO SCH ×2 (14:54→20:30)
--- NOTE | 2022-06-21 15:38 | P.PN ---
Subjective Progress Note Date: 06/21/22 Hospital course: Patient is a very pleasant 57-year-old female with a past medical history of diverticulitis whom underwent recent hospitalization from 06/06/22 through 06/10/22 after presenting with left lower quadrant abdominal pain and being diagnosed with complicated perforated sigmoid diverticulitis which resulted and undergoing a CT guided drainage of her intra-abdominal abscess and drain was left in place. Patient presented to the hospital overnight with a chief complaint of decreased output from this drain and experiencing fecal appearing drainage around the drain insertion site. Patient reports this is accompanied by significant left lower quadrant abdominal pain and pain throughout her left buttocks. Patient denied having any fevers, chills, nausea, vomiting, or any urinary complaints. Patient reports when she was discharged home from the [facility] on 06/10/22 she was experiencing normal bowel movements however reports she has not had a bowel movement in over 2 days. Patient has been receiving IV antibiotics Rocephin and Flagyl managed through infectious disease on an outpatient basis. Previous culture results obtained upon insertion of abscess drainage catheter on 06/07/22 revealed anaerobic culture positive for gram- negative bacilli and Gram stain positive forbeta-hemolytic Streptococcus and E. coli. Upon arrival to the emergency department, patient underwent full evaluation. Labs completed revealing leukocytosis with a left shift with WBC count of 15.0, hypokalemia with potassium of 3.2, an elevated alkaline phosphatase of 127. Patient was admitted under Gen. surgery team and we were consulted for medical management throughout patient's hospitalization. CT abdomen and pelvis with contrast was obtained which revealed redemonstration of contained perforated sigmoid diverticulitis with slight increase in size of left pelvic abscess measuring up to 10.5 cm with larger a component (previously 7.1 cm) and a new foci of gas and edematous appearance of left piriformis and left gluteal musculature with surrounding fat stranding concerning for an infectious process, unable to exclude necrotizing fasciitis. general surgeon and infectious disease both notified. Rocephin discontinued and patient started on Unasyn per recommendation of infectious disease. General surgery took patient to OR and pt underwent a sigmoid colectomy with end colostomy placement. Progress Note Update: Pt is resting in bed comfortably today. Patient reports pain in her buttocks. Ostomy teaching not yet done. Wound culture growing pseudomonas. Physical exam: Gen: awake, alert HEENT: normocephalic, atraumatic, good hearing acuity, moist mucous membranes Resp: good air exchange, breathing comfortably with no accessory muscle use CVS: good distal perfusion x 4, GI: soft, NTTP, ND, ostomy : no SPT, no CVAT, sinclair catheter is present MSK: no pitting edema, no clubbing Neuro: non-focal, moving all extremities Psych: cooperative, euthymic mood Assessment and Plan of Care: Peritonitis Perforated sigmoid diverticulitis Left buttock abscess status post incision and drainage Leukocytosis -Management through primary admitting general surgery team including DVT prophylaxis, pain management, wound care, and drain management. -Cultures obtained on 06/07/22 revealing anaerobic culture positive for gram- negative bacilli and Gram stain positive for beta-hemolytic Streptococcus and E. coli. -OR on 06/18 for I&D with toi drain placement, wound culture growing pseudomonas -Patient to continue current IV antibiotics with Flagyl and Zosyn -Blood cultures - NGTD -Infectious disease Following -Symptomatic care and pain management -PT/OT Hypokalemia -Replace and monitor Thank you for allowing us to participate in the care of this pleasant patient. Do not hesitate to contact us with questions. Someone can be reached from the [facility] hospitalist group all hours of the day at [phone] or via [employer]. Objective - Vital Signs Vital signs: Vital Signs Temp 97.7 F 06/21/22 14:00 Pulse 59 L 06/21/22 14:00 Resp 16 06/21/22 01:20 BP 130/73 06/21/22 14:00 Pulse Ox 96 06/21/22 14:00 FiO2 Intake & Output 06/20/22 06/21/22 06/21/22 18:59 06:59 18:59 Output Total 170 70 Balance -170 -70 Weight 99.79 kg Output: Drainage 170 70 Anterior Abdomen 100 Left Buttock 70 70 Other: Voiding Method Indwelling Catheter Toilet Toilet # Voids 5 2 - Labs CBC & Chem 7: 06/21/22 08:36 06/21/22 08:36 Labs: Abnormal Lab Results - Last 24 Hours (Table) 06/21/22 06/21/22 Range/Units 08:36 08:36 RBC 3.71 L (3.80-5.40) m/uL Hgb 11.2 L (11.4-16.0) gm/dL Neutrophils # 8.5 H (1.3-7.7) k/uL Lymphocytes # 0.7 L (1.0-4.8) k/uL Sodium 135 L (137-145) mmol/L Potassium 3.1 L (3.5-5.1) mmol/L BUN 6 L (7-17) mg/dL Glucose 107 H (74-99) mg/dL Calcium 7.3 L (8.4-10.2) mg/dL Microbiology - Last 24 Hours (Table) 06/18/22 12:40 Anaerobic Culture - Preliminary Buttock 06/18/22 12:40 Gram Stain - Final Buttock Wound Culture - Final Pseudomonas aeruginosa 06/14/22 20:04 Blood Culture - Final Blood No Growth after 144 hours 06/14/22 20:10 Blood Culture - Final Blood No Growth after 144 hours
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
[2022-06-21] MEDS: PIPERACILLIN-TAZOBACTAM 3.375 GM in SODIUM CHLORIDE 0.9% 100 ML IVPB SCH ×2 (16:18→22:45)
[2022-06-22] MEDS: HYDROmorphone 1 MG/ML 1 ML SYRINGE IVP PRN (02:10)
[2022-06-22] MEDS: metroNIDAZOLE-NS PMX 500 MG in SALINE 1 100ML.BAG IVPB SCH ×3 (04:58→20:33)
[2022-06-22] MEDS: HYDROcodone/APAP 5-325MG 1 EACH TAB PO PRN ×4 (06:13→20:32)
--- NOTE | 2022-06-22 08:34 | P.PN ---
Subjective Progress Note Date: 06/20/22 Principal diagnosis: Perforated diverticulitis and intra-abdominal abscess Patient is a 57-year-old female who was recently admitted at this facility diagnosed with a perforated diverticulitis intra-abdominal abscess status post CT-guided drainage culture positive for E. coli and strep and anaerobes discharged on Rocephin and Flagyl subsequently presented back to the hospital with more pain and her drainage catheter site and no output patient was noticed to have worsening abscess and inflammation around the drainage catheter site patient is status post laparotomy diverting colostomy abdominal washout and no cultures. Patient did have CT of the left hip contusion shows large abscess and still showing the pelvic abscess unchanged from the previous CT On today's evaluation that is 06/20/2022, the patient is afebrile, the patient abdominal as well as the left gluteal pain is controlled, the patient denies having any chest pain or shortness of breath or cough, the patient denies nausea no vomiting or diarrhea Objective - Vital Signs Vital signs: Vital Signs Temp 98.1 F 06/20/22 08:04 Pulse 60 06/20/22 08:04 Resp 15 06/20/22 08:04 BP 163/68 06/20/22 08:04 Pulse Ox 98 06/20/22 08:04 FiO2 Intake & Output 06/19/22 06/20/22 06/20/22 18:59 06:59 18:59 Output Total 430 1480 70 Balance -430 -1480 -70 Output: Drainage 130 180 70 Anterior Abdomen 180 Left Buttock 130 70 Urine 300 1300 Other: Voiding Method Indwelling Catheter Indwelling Catheter - Exam GENERAL DESCRIPTION: Middle-aged female lying in bed in no distress RESPIRATORY SYSTEM: Unlabored breathing , decreased breath sounds at bases HEART: S1 S2 regular rate and rhythm , ABDOMEN: Soft , abdominal incision is currently dressed EXTREMITIES: No edema feet - Labs CBC & Chem 7: 06/21/22 08:36 06/21/22 08:36 Labs: Abnormal Lab Results - Last 24 Hours (Table) 06/20/22 06/20/22 06/20/22 Range/Units 06:53 08:55 08:55 RBC 3.63 L (3.80-5.40) m/uL Hgb 10.6 L (11.4-16.0) gm/dL Hct 33.0 L (34.0-46.0) % Lymphocytes # 0.7 L (1.0-4.8) k/uL Potassium 3.3 L (3.5-5.1) mmol/L Glucose 102 H (74-99) mg/dL POC Glucose (mg/dL) 111 H (70-110) mg/dL Calcium 7.3 L (8.4-10.2) mg/dL Microbiology - Last 24 Hours (Table) 06/18/22 12:40 Gram Stain - Preliminary Buttock Wound Culture - Preliminary Gram Neg Bacilli 06/14/22 20:04 Blood Culture - Preliminary Blood No Growth after 120 hours 06/14/22 20:10 Blood Culture - Preliminary Blood No Growth after 120 hours 06/18/22 12:40 Anaerobic Culture - Preliminary Buttock Assessment and Plan (1) Pelvic abscess Current Visit: No Status: Acute Code(s): ZUQ0172 - SNOMED Code(s): 375989453 (2) Perforation of sigmoid colon due to diverticulitis Current Visit: No Status: Acute Code(s): K57.20 - DVTRCLI OF LG INT W PERFORATION AND ABSCESS W/O BLEEDING SNOMED Code(s): 6555262686551015 Plan: 1patient presented to hospital with drainage around the CT-guided drainage catheter site and this patient noticed to have worsening of the intra-abdominal abscess and some inflammation around the drainage catheter site status post laparotomy and diverting colostomy and washout of the pelvic abscess un fortunately no cultures were done with the recent CT-guided fluid cultures were positive for E. coli strep and anaerobes 2patient did have a CT of the hip showing a large intramuscular abscess and the pelvic abscess was unchanged patient is status post drainage of the left gluteal abscess and culture has not been finalized 3-patient to continue with Unasyn and antibiotics will be adjusted further on the basis of culture report and continue supportive care Time with Patient: Less than 30
--- NOTE | 2022-06-22 08:35 | P.PN ---
Subjective Progress Note Date: 06/21/22 Principal diagnosis: Perforated diverticulitis and intra-abdominal abscess Patient is a 57-year-old female who was recently admitted at this facility diagnosed with a perforated diverticulitis intra-abdominal abscess status post CT-guided drainage culture positive for E. coli and strep and anaerobes discharged on Rocephin and Flagyl subsequently presented back to the hospital with more pain and her drainage catheter site and no output patient was noticed to have worsening abscess and inflammation around the drainage catheter site patient is status post laparotomy diverting colostomy abdominal washout and no cultures. Patient did have CT of the left hip contusion shows large abscess and still showing the pelvic abscess unchanged from the previous CT On today's evaluation that is 06/21/2022, the patient denies any fever or any chills, the patient abdominal as well as the left gluteal pain is controlled with the current medication, the patient denies having any chest pain or shortness of breath or cough, the patient denies nausea no vomiting or diarrhea, no new symptoms Objective - Vital Signs Vital signs: Vital Signs Temp 98.0 F 06/21/22 08:00 Pulse 65 06/21/22 08:00 Resp 16 06/21/22 01:20 BP 146/78 06/21/22 08:00 Pulse Ox 99 06/21/22 08:00 FiO2 Intake & Output 06/20/22 06/21/22 06/21/22 18:59 06:59 18:59 Output Total 170 70 Balance -170 -70 Weight 99.79 kg Output: Drainage 170 70 Anterior Abdomen 100 Left Buttock 70 70 Other: Voiding Method Indwelling Catheter Toilet Toilet # Voids 5 2 - Exam GENERAL DESCRIPTION: Middle-aged female lying in bed in no distress RESPIRATORY SYSTEM: Unlabored breathing , decreased breath sounds at bases HEART: S1 S2 regular rate and rhythm , ABDOMEN: Soft , abdominal incision is currently dressed EXTREMITIES: No edema feet - Labs CBC & Chem 7: 06/21/22 08:36 06/21/22 08:36 Labs: Abnormal Lab Results - Last 24 Hours (Table) 06/21/22 06/21/22 Range/Units 08:36 08:36 RBC 3.71 L (3.80-5.40) m/uL Hgb 11.2 L (11.4-16.0) gm/dL Neutrophils # 8.5 H (1.3-7.7) k/uL Lymphocytes # 0.7 L (1.0-4.8) k/uL Sodium 135 L (137-145) mmol/L Potassium 3.1 L (3.5-5.1) mmol/L BUN 6 L (7-17) mg/dL Glucose 107 H (74-99) mg/dL Calcium 7.3 L (8.4-10.2) mg/dL Microbiology - Last 24 Hours (Table) 06/18/22 12:40 Gram Stain - Final Buttock Wound Culture - Final Pseudomonas aeruginosa 06/14/22 20:04 Blood Culture - Final Blood No Growth after 144 hours 06/14/22 20:10 Blood Culture - Final Blood No Growth after 144 hours Assessment and Plan (1) Pelvic abscess Current Visit: No Status: Acute Code(s): EIT5238 - SNOMED Code(s): 113696101 (2) Perforation of sigmoid colon due to diverticulitis Current Visit: No Status: Acute Code(s): K57.20 - DVTRCLI OF LG INT W PERFORATION AND ABSCESS W/O BLEEDING SNOMED Code(s): 6547921298707791 Plan: 1patient presented to hospital with drainage around the CT-guided drainage catheter site and this patient noticed to have worsening of the intra-abdominal abscess and some inflammation around the drainage catheter site status post laparotomy and diverting colostomy and washout of the pelvic abscess unfortunately no cultures were done with the recent CT-guided fluid cultures were positive for E. coli strep and anaerobes 2patient did have a CT of the hip showing a large intramuscular abscess and the pelvic abscess was unchanged patient is status post drainage of the left gluteal abscess and culture has been finalized and pseudomonas aeruginosa sensitive pathogen We will discontinue Unasyn and start the patient on Zosyn however plan is for cefepime 2 g every 8 along with oral Flagyl 500 mg every 8 hour 2 weeks and a close outpatient follow-up and discuss with the admitting team Time with Patient: Less than 30
[2022-06-22] MEDS: FAMOTIDINE 20 MG/2 ML VIAL IV SCH ×2 (10:26→20:32)
[2022-06-22] MEDS: GABAPENTIN 300 MG CAP PO SCH ×3 (10:28→20:32)
[2022-06-22] MEDS: PIPERACILLIN-TAZOBACTAM 3.375 GM in SODIUM CHLORIDE 0.9% 100 ML IVPB SCH ×3 (10:28→23:59)
[2022-06-22] MEDS: ENOXAPARIN 40 MG/0.4 ML SYRINGE SQ SCH (10:28)
[2022-06-22 11:23] LABS: African American GFR (CKD) 116.4 (60.0-200.0); Anion Gap 8.9 mmol/L (10.00-18.00); BUN/Creat Ratio 8.5 Ratio (12.00-20.00); Blood Urea Nitrogen 5.1 mg/dL (9.0-27.0); Calcium 7.7 mg/dL (8.7-10.3); Carbon Dioxide 26.1 mmol/L (20.0-27.5); Non-African American GFR(CKD) 100.5 (60.0-200.0); Potassium 3.7 mmol/L (3.5-5.5)
--- NOTE | 2022-06-22 12:21 | P.PN ---
Progress Note - Text Progress Note Date: 06/22/22 Patient still has some complaints of mild abdominal pain. Patient's abdomen is soft. Wound is clean. Colostomy dysfunction. EMELIA drain has some seropurulent fluid. Status post Kwasi procedure for perforated diverticulitis and subsequent drainage of left buttock abscess. Patient is doing better. Into straight discharged home hopefully tomorrow.
[2022-06-22] MEDS ORDERED: CYCLOBENZAPRINE 10 MG TAB PO STA (12:25)
--- NOTE | 2022-06-22 12:29 | P.PN ---
Subjective Progress Note Date: 06/22/22 Hospital course: Patient is a very pleasant 57-year-old female with a past medical history of diverticulitis whom underwent recent hospitalization from 06/06/22 through 06/10/22 after presenting with left lower quadrant abdominal pain and being diagnosed with complicated perforated sigmoid diverticulitis which resulted and undergoing a CT guided drainage of her intra-abdominal abscess and drain was left in place. Patient presented to the hospital overnight with a chief complaint of decreased output from this drain and experiencing fecal appearing drainage around the drain insertion site. Patient reports this is accompanied by significant left lower quadrant abdominal pain and pain throughout her left buttocks. Patient denied having any fevers, chills, nausea, vomiting, or any urinary complaints. Patient reports when she was discharged home from the [facility] on 06/10/22 she was experiencing normal bowel movements however reports she has not had a bowel movement in over 2 days. Patient has been receiving IV antibiotics Rocephin and Flagyl managed through infectious disease on an outpatient basis. Previous culture results obtained upon insertion of abscess drainage catheter on 06/07/22 revealed anaerobic culture positive for gram- negative bacilli and Gram stain positive forbeta-hemolytic Streptococcus and E. coli. Upon arrival to the emergency department, patient underwent full evaluation. Labs completed revealing leukocytosis with a left shift with WBC count of 15.0, hypokalemia with potassium of 3.2, an elevated alkaline phosphatase of 127. Patient was admitted under Gen. surgery team and we were consulted for medical management throughout patient's hospitalization. CT abdomen and pelvis with contrast was obtained which revealed redemonstration of contained perforated sigmoid diverticulitis with slight increase in size of left pelvic abscess measuring up to 10.5 cm with larger a component (previously 7.1 cm) and a new foci of gas and edematous appearance of left piriformis and left gluteal musculature with surrounding fat stranding concerning for an infectious process, unable to exclude necrotizing fasciitis. general surgeon and infectious disease both notified. Rocephin discontinued and patient started on Unasyn per recommendation of infectious disease. General surgery took patient to OR and pt underwent a sigmoid colectomy with end colostomy placement. Progress Note Update: Patient was seen and examined. Patient reports muscular cramping at the site of ostomy. Her pain in the buttocks has improved. Ostomy teaching started yesterday. Plans for son to come in today for ostomy teaching. Wound culture growing pseudomonas. Physical exam: Gen: awake, alert HEENT: normocephalic, atraumatic, good hearing acuity, moist mucous membranes Resp: good air exchange, breathing comfortably with no accessory muscle use CVS: good distal perfusion x 4, GI: soft, NTTP, ND, ostomy MSK: no pitting edema, no clubbing Neuro: non-focal, moving all extremities Psych: cooperative, euthymic mood Assessment and Plan of Care: Peritonitis Perforated sigmoid diverticulitis Left buttock abscess status post incision and drainage Leukocytosis -Management through primary admitting general surgery team including DVT prophylaxis, pain management, wound care, and drain management. -Cultures obtained on 06/07/22 revealing anaerobic culture positive for gram- negative bacilli and Gram stain positive for beta-hemolytic Streptococcus and E. coli. -OR on 06/18 for I&D with toi drain placement, wound culture growing pseudomonas -Patient to continue current IV antibiotics with Flagyl and Zosyn -Blood cultures - NGTD -Infectious disease Following -Symptomatic care and pain management -PT/OT Normocytic anemia -Stable -No signs of acute bleeding -Continue to monitor Resolved: Hypokalemia Case discussed with Dr. Rollins. Plans for cefepime 2 g IV every 8 hours, Flagyl 500 mg every 8 hours for 2 weeks. Patient will obtain her antibiotics from [facility] to be administered at home. Anticipated discharge home tomorrow as per surgery. Thank you for allowing us to participate in the care of this pleasant patient. Do not hesitate to contact us with questions. Someone can be reached from the [facility] hospitalist group all hours of the day at [phone] or via perfect serve. Objective - Vital Signs Vital signs: Vital Signs Temp 98 F 06/22/22 07:15 Pulse 61 06/22/22 07:15 Resp 17 06/22/22 07:15 BP 121/68 06/22/22 07:15 Pulse Ox 95 06/22/22 07:15 FiO2 Intake & Output 06/21/22 06/22/22 06/22/22 18:59 06:59 18:59 Intake Total 420 Output Total 70 910 Balance 350 -910 Intake: Intake, IV Titration 420 Amount Lactated Ringers 1,000 ml 120 @ 125 mls/hr IV .Q8H [facility] Rx#:[id number] Piperacillin-Tazobactam 3 100 .375 gm In Sodium Chloride 0.9% 100 ml @ 200 mls/hr IVPB ONCE STA Rx#:[id number] Piperacillin-Tazobactam 3 100 .375 gm In Sodium Chloride 0.9% 100 ml @ 25 mls/hr IVPB Q8HR [facility] Rx# :[id number] PMX 500 100 mg In Saline 1 100ml.bag @ 100 mls/hr IVPB Q8H [facility] Rx#:[id number] Output: Drainage 70 10 Anterior Abdomen 10 Left Buttock 70 Urine 900 Other: Voiding Method Toilet Toilet Toilet Diaper Diaper Incontinent Incontinent # Voids 7 4 2 - Labs CBC & Chem 7: 06/21/22 08:36 06/22/22 05:46 Labs: Abnormal Lab Results - Last 24 Hours (Table) 06/22/22 Range/Units 05:46 Anion Gap 8.90 L (10.00-18.00) mmol/L BUN 5.1 L (9.0-27.0) mg/dL BUN/Creatinine Ratio 8.50 L (12.00-20.00) Ratio Calcium 7.7 L (8.7-10.3) mg/dL Microbiology - Last 24 Hours (Table) 06/18/22 12:40 Anaerobic Culture - Preliminary Buttock 06/18/22 12:40 Gram Stain - Final Buttock Wound Culture - Final Pseudomonas aeruginosa
[2022-06-23] MEDS: HYDROcodone/APAP 5-325MG 1 EACH TAB PO PRN ×2 (03:33→14:19)
[2022-06-23] MEDS: metroNIDAZOLE-NS PMX 500 MG in SALINE 1 100ML.BAG IVPB SCH ×3 (04:59→21:03)
[2022-06-23] MEDS: CYCLOBENZAPRINE 5 MG TAB PO PRN ×2 (04:59→13:09)
[2022-06-23] MEDS: PIPERACILLIN-TAZOBACTAM 3.375 GM in SODIUM CHLORIDE 0.9% 100 ML IVPB SCH ×2 (08:11→16:33)
[2022-06-23] MEDS: FAMOTIDINE 20 MG/2 ML VIAL IV SCH ×2 (08:11→21:03)
[2022-06-23] MEDS: GABAPENTIN 300 MG CAP PO SCH ×3 (08:11→21:03)
[2022-06-23] MEDS: ENOXAPARIN 40 MG/0.4 ML SYRINGE SQ SCH (08:11)
--- NOTE | 2022-06-23 08:36 | CDI ---
Documentation Clarification Form Date: 06/23/2022 08:08:35 AM From: Ree Lang CCS, CCDS Admit Date: 06/15/2022 12:54:00 PM Patient Name: January Mayers Visit Number: [id number] Discharge Date: ATTENTION: The Clinical Documentation Specialists (CDI) and [facility] Coding Staff appreciate your assistance in clarifying documentation. Please respond to the clarification below the line at the bottom and electronically sign. The CDI & [facility] Coding staff will review the response and follow-up if needed. Please note: Queries are made part of the Legal Health Record. If you have any questions, please contact the author of this message via ITS. Dr. Aliza Maza: Normocytic Anemia s documented in the 06/22 Medical Management Progress Note without further specificity. Additional specificity regarding the Type & Acuity of Anemia is requested. History/Risk Factors per the 06/14 H/P: Anemia, Hearing Loss, Left Ear, OA, Pneumonia, Bronchitis, Chronic Low Back & Left Shoulder Pain, DJD, Hypoglycemia, UTIs, Kidney Stones. Former smoker. Clinical indicators: Presented to the ED on 06/13 with abdominal pain and output from wound drain. Also has drainage around the incision site. Has diverticulitis with multiple abscesses, drain was placed last Monday in attempt to avoid surgery. Admit with Post-op pain, Drainage from the surgical wound. 06/14: PICC Line by IR. 06/14 Pre/Postop Diagnosis: Perforated Diverticulitis with Abscess Procedure: Sigmoid Colectomy with End Colostomy and Washout of Pelvic Abscess 06/18 Pre/Postop Diagnosis: Left Buttock Abscess Procedure: Incision and Drainage of Left Buttock Abscess Hemoglobin: 06/13: 12.2. 06/15: 11.0. 06/16: 10.7. 06/17: 10.4. 06/18: 10.0. 06/20: 10.6. 06/21: 11.2 Hematocrit: 06/13: 38.9. 06/15: 36.0. 06/16: 33.8. 06/17: 32.7. 06/18: 31.3. 06/20: 33.0. 06/21: 34.3 Treatment: Admit 06/14 to to Observation status. Fall precautions, Consulted Medical management, Infectious Disease and Interventional Radiology for drain replacement, IV Morphine 4 mg q4H/prn., IV Dilaudid 0.5 mg q3H/prn, IV Zofran 4 mg q8H/prn, IV Rocephin 2 gm x1, IV Ampicillin 100 mls @ 200 mls/hr q6H, Heparin 5,000 units sq, IV Lactated Ringers, IV Toradol 15 mg q6H, IV pepcid 20 mg q12H, IV Flagyl 100 mls @ 100 mls/hr q8H. Admit 06/15 to Inpatient status. Wound care. IV Rocephin continued. Please clarify the Type & Acuity of Anemia if known: [ ] Chronic blood loss anemia, please specify the cause if known: [ ] Hemolytic anemia [ ] Drug induced anemia [ ] Anemia of chronic disease, please specify if known: [ ] Unable to determine [ ] Other, please specify: (Template Last Revised: November 2020) Unable to determine MTDD
--- NOTE | 2022-06-23 10:19 | P.PN ---
Subjective Progress Note Date: 06/23/22 Hospital course: Patient is a very pleasant 57-year-old female with a past medical history of diverticulitis whom underwent recent hospitalization from 06/06/22 through 06/10/22 after presenting with left lower quadrant abdominal pain and being diagnosed with complicated perforated sigmoid diverticulitis which resulted and undergoing a CT guided drainage of her intra-abdominal abscess and drain was left in place. Patient presented to the hospital overnight with a chief complaint of decreased output from this drain and experiencing fecal appearing drainage around the drain insertion site. Patient reports this is accompanied by significant left lower quadrant abdominal pain and pain throughout her left buttocks. Patient denied having any fevers, chills, nausea, vomiting, or any urinary complaints. Patient reports when she was discharged home from the [facility] on 06/10/22 she was experiencing normal bowel movements however reports she has not had a bowel movement in over 2 days. Patient has been receiving IV antibiotics Rocephin and Flagyl managed through infectious disease on an outpatient basis. Previous culture results obtained upon insertion of abscess drainage catheter on 06/07/22 revealed anaerobic culture positive for gram- negative bacilli and Gram stain positive forbeta-hemolytic Streptococcus and E. coli. Upon arrival to the emergency department, patient underwent full evaluation. Labs completed revealing leukocytosis with a left shift with WBC count of 15.0, hypokalemia with potassium of 3.2, an elevated alkaline phosphatase of 127. Patient was admitted under Gen. surgery team and we were consulted for medical management throughout patient's hospitalization. CT abdomen and pelvis with contrast was obtained which revealed redemonstration of contained perforated sigmoid diverticulitis with slight increase in size of left pelvic abscess measuring up to 10.5 cm with larger a component (previously 7.1 cm) and a new foci of gas and edematous appearance of left piriformis and left gluteal musculature with surrounding fat stranding concerning for an infectious process, unable to exclude necrotizing fasciitis. general surgeon and infectious disease both notified. Rocephin discontinued and patient started on Unasyn per recommendation of infectious disease. General surgery took patient to OR and pt underwent a sigmoid colectomy with end colostomy placement. Progress Note Update: Patient was seen and examined. Patient reports muscular cramping at the site of ostomy. Her pain in the buttocks is persistent. Physical exam: General: non toxic, no distress, appears at stated age Derm: warm, dry Head: atraumatic, normocephalic, symmetric Eyes: EOMI, no lid lag, anicteric sclera Mouth: no lip lesion, mucus membranes moist Cardiovascular: S1S2 reg, no murmur Lungs: CTA bilateral, no rhonchi, no rales , no accessory muscle use Ext: no gross muscle atrophy, no edema, no contractures Neuro: no focal neuro deficits Psych: Alert, oriented, appropriate affect Assessment and Plan of Care: Peritonitis Perforated sigmoid diverticulitis Left buttock abscess status post incision and drainage Leukocytosis -Management through primary admitting general surgery team including DVT prophylaxis, pain management, wound care, and drain management. -Cultures obtained on 06/07/22 revealing anaerobic culture positive for gram- negative bacilli and Gram stain positive for beta-hemolytic Streptococcus and E. coli. -OR on 06/18 for I&D with toi drain placement, wound culture growing pseudomonas -Patient to continue current IV antibiotics with Flagyl and Zosyn -Blood cultures - NGTD -Infectious disease Following -Symptomatic care and pain management -PT/OT Normocytic anemia -Stable -No signs of acute bleeding -Continue to monitor Resolved: Hypokalemia Case discussed with Dr. Rollins. Plans for cefepime 2 g IV every 8 hours, Flagyl 500 mg every 8 hours for 2 weeks. Patient will obtain her antibiotics from [facility] to be administered at home. Anticipated discharge home today as per surgery. Thank you for allowing us to participate in the care of this pleasant patient. Do not hesitate to contact us with questions. Someone can be reached from the [facility] hospitalist group all hours of the day at [phone] or via perfect serve. Objective - Vital Signs Vital signs: Vital Signs Temp 98.2 F 06/23/22 01:44 Pulse 57 L 06/23/22 01:44 Resp 20 06/23/22 01:44 BP 125/71 06/23/22 01:44 Pulse Ox 96 06/23/22 01:44 FiO2 Intake & Output 06/22/22 06/23/22 06/23/22 18:59 06:59 18:59 Output Total 20 40 Balance -20 -40 Output: Drainage 20 40 Anterior Abdomen 20 40 Other: Voiding Method Toilet Toilet Diaper Diaper Incontinent Incontinent # Voids 3 2 - Labs CBC & Chem 7: 06/21/22 08:36 06/22/22 05:46 Labs: Abnormal Lab Results - Last 24 Hours (Table) 06/22/22 Range/Units 05:46 Anion Gap 8.90 L (10.00-18.00) mmol/L BUN 5.1 L (9.0-27.0) mg/dL BUN/Creatinine Ratio 8.50 L (12.00-20.00) Ratio Calcium 7.7 L (8.7-10.3) mg/dL
--- NOTE | 2022-06-23 12:34 | P.PN ---
Progress Note - Text Progress Note Date: 06/23/22 The patient's ostomy was evaluated with the stoma nurse. The patient has some dehiscence of the sutures from the colostomy from the 6:00 to 9 o'clock position. The colostomy functioning well. The patient is morbidly obese. She has a very thick abdominal wall. On exam vital signs are stable. Abdomen is soft. Midline wound is clean. Patient will continue receiving local wound care she'll also continue receive IV antibiotics for the next several days. The colostomy issue is difficult this time. The patient will need revision of her colostomy if she has any significant retraction of the colostomy. Due to her morbid obesity her physical body shape excess difficult.
--- NOTE | 2022-06-23 22:54 | P.PN ---
Subjective Progress Note Date: 06/22/22 Principal diagnosis: Perforated diverticulitis and intra-abdominal abscess Patient is a 57-year-old female who was recently admitted at this facility diagnosed with a perforated diverticulitis intra-abdominal abscess status post CT-guided drainage culture positive for E. coli and strep and anaerobes discharged on Rocephin and Flagyl subsequently presented back to the hospital with more pain and her drainage catheter site and no output patient was noticed to have worsening abscess and inflammation around the drainage catheter site patient is status post laparotomy diverting colostomy abdominal washout and no cultures. Patient did have CT of the left hip contusion shows large abscess and still showing the pelvic abscess unchanged from the previous CT On today's evaluation that is 06/22/2022, the patient remains to be afebrile, the patient abdominal as well as the left gluteal pain is controlled, the patient denies having any chest pain or shortness of breath or cough, the patient denies nausea no vomiting or diarrhea Objective - Vital Signs Vital signs: Vital Signs Temp 98 F 06/22/22 07:15 Pulse 61 06/22/22 07:15 Resp 17 06/22/22 07:15 BP 121/68 06/22/22 07:15 Pulse Ox 95 06/22/22 07:15 FiO2 Intake & Output 06/21/22 06/22/22 06/22/22 18:59 06:59 18:59 Intake Total 420 Output Total 70 910 Balance 350 -910 Intake: Intake, IV Titration 420 Amount Lactated Ringers 1,000 ml 120 @ 125 mls/hr IV .Q8H [facility] Rx#:[id number] Piperacillin-Tazobactam 3 100 .375 gm In Sodium Chloride 0.9% 100 ml @ 200 mls/hr [facility] Rx#:[id number] Piperacillin-Tazobactam 3 100 .375 gm In Sodium Chloride 0.9% 100 ml @ 25 mls/hr IVPB Q8HR [facility] Rx# :[id number] metroNIDAZOLE-NS PMX 500 100 mg In Saline 1 100ml.bag @ 100 mls/hr IVPB Q8H [facility] Rx#:[id number] Output: Drainage 70 10 Anterior Abdomen 10 Left Buttock 70 Urine 900 Other: Voiding Method Toilet Toilet Diaper Incontinent # Voids 7 4 - Exam GENERAL DESCRIPTION: Middle-aged female lying in bed in no distress RESPIRATORY SYSTEM: Unlabored breathing , decreased breath sounds at bases HEART: S1 S2 regular rate and rhythm , ABDOMEN: Soft , abdominal incision is currently dressed EXTREMITIES: No edema feet - Labs CBC & Chem 7: 06/21/22 08:36 06/22/22 05:46 Labs: Abnormal Lab Results - Last 24 Hours (Table) 06/21/22 06/21/22 Range/Units 08:36 08:36 RBC 3.71 L (3.80-5.40) m/uL Hgb 11.2 L (11.4-16.0) gm/dL Neutrophils # 8.5 H (1.3-7.7) k/uL Lymphocytes # 0.7 L (1.0-4.8) k/uL Sodium 135 L (137-145) mmol/L Potassium 3.1 L (3.5-5.1) mmol/L BUN 6 L (7-17) mg/dL Glucose 107 H (74-99) mg/dL Calcium 7.3 L (8.4-10.2) mg/dL Microbiology - Last 24 Hours (Table) 06/18/22 12:40 Anaerobic Culture - Preliminary Buttock 06/18/22 12:40 Gram Stain - Final Buttock Wound Culture - Final Pseudomonas aeruginosa Assessment and Plan (1) Pelvic abscess Current Visit: No Status: Acute Code(s): JHQ8864 - SNOMED Code(s): 056095249 (2) Perforation of sigmoid colon due to diverticulitis Current Visit: No Status: Acute Code(s): K57.20 - DVTRCLI OF LG INT W PE RFORATION AND ABSCESS W/O BLEEDING SNOMED Code(s): 6149981554267021 Plan: 1patient presented to hospital with drainage around the CT-guided drainage catheter site and this patient noticed to have worsening of the intra-abdominal abscess and some inflammation around the drainage catheter site status post laparotomy and diverting colostomy and washout of the pelvic abscess unfortunately no cultures were done with the recent CT-guided fluid cultures were positive for E. coli strep and anaerobes 2patient did have a CT of the hip showing a large intramuscular abscess and the pelvic abscess was unchanged patient is status post drainage of the left gluteal abscess and culture has been finalized and pseudomonas aeruginosa sensitive pathogen 3patient to continue with Zosyn or inpatient however plan is for cefepime 2 g every 8 along with oral Flagyl 500 mg every 8 hour 2 weeks on discharge Time with Patient: Less than 30
--- NOTE | 2022-06-23 22:56 | P.PN ---
Subjective Progress Note Date: 06/23/22 Principal diagnosis: Perforated diverticulitis and intra-abdominal abscess Patient is a 57-year-old female who was recently admitted at this facility diagnosed with a perforated diverticulitis intra-abdominal abscess status post CT-guided drainage culture positive for E. coli and strep and anaerobes discharged on Rocephin and Flagyl subsequently presented back to the hospital with more pain and her drainage catheter site and no output patient was noticed to have worsening abscess and inflammation around the drainage catheter site patient is status post laparotomy diverting colostomy abdominal washout and no cultures. Patient did have CT of the left hip contusion shows large abscess and still showing the pelvic abscess unchanged from the previous CT On today's evaluation that is 06/23/2022, the patient denies any fever or any chills, the patient is breathing comfortably on room air denies any chest pain shortness of breath or cough abdominal and left total pain is currently controlled no new symptoms Objective - Vital Signs Vital signs: Vital Signs Temp 98.2 F 06/23/22 01:44 Pulse 57 L 06/23/22 01:44 Resp 20 06/23/22 01:44 BP 125/71 06/23/22 01:44 Pulse Ox 96 06/23/22 01:44 FiO2 Intake & Output 06/22/22 06/23/22 06/23/22 18:59 06:59 18:59 Output Total 20 40 Balance -20 -40 Output: Drainage 20 40 Anterior Abdomen 20 40 Other: Voiding Method Toilet Toilet Toilet Diaper Diaper Diaper Incontinent Incontinent Incontinent # Voids 3 2 - Exam GENERAL DESCRIPTION: Middle-aged female lying in bed in no distress RESPIRATORY SYSTEM: Unlabored breathing , decreased breath sounds at bases HEART: S1 S2 regular rate and rhythm , ABDOMEN: Soft , abdominal incision is currently dressed EXTREMITIES: No edema feet - Labs CBC & Chem 7: 06/21/22 08:36 06/22/22 05:46 Assessment and Plan (1) Pelvic abscess Current Visit: No Status: Acute Code(s): MBD4066 - SNOMED Code(s): 920903871 (2) Perforation of sigmoid colon due to diverticulitis Current Visit: No Status: Acute Code(s): K57.20 - DVTRCLI OF LG INT W PERFORATION AND ABSCESS W/O BLEEDING SNOMED Code(s): 8397991734771322 Plan: 1patient presented to hospital with drainage around the CT-guided drainage catheter site and this patient noticed to have worsening of the intra-abdominal abscess and some inflammation around the drainage catheter site status post laparotomy and diverting colostomy and washout of the pelvic abscess unfortunately no cultures were done with the recent CT-guided fluid cultures were positive for E. coli strep and anaerobes 2patient did have a CT of the hip showing a large intramuscular abscess and the pelvic abscess was unchanged patient is status post drainage of the left gluteal abscess and culture has been finalized and pseudomonas aeruginosa sensitive pathogen 3patient seemed to have shown some clinical improvement and was continue with Zosyn and after discussion with the surgeon on the phone this morning will like to keep the patient for close observation in the hospital over the weekend Time with Patient: Less than 30
[2022-06-24] MEDS: PIPERACILLIN-TAZOBACTAM 3.375 GM in SODIUM CHLORIDE 0.9% 100 ML IVPB SCH ×4 (00:04→23:03)
[2022-06-24] MEDS: CYCLOBENZAPRINE 5 MG TAB PO PRN (00:56)
[2022-06-24] MEDS: HYDROcodone/APAP 5-325MG 1 EACH TAB PO PRN ×3 (00:56→17:20)
[2022-06-24] MEDS: metroNIDAZOLE-NS PMX 500 MG in SALINE 1 100ML.BAG IVPB SCH ×3 (05:32→23:00)
[2022-06-24] MEDS: GABAPENTIN 300 MG CAP PO SCH ×3 (08:27→22:59)
[2022-06-24] MEDS: ENOXAPARIN 40 MG/0.4 ML SYRINGE SQ SCH (08:27)
[2022-06-24] MEDS: FAMOTIDINE 20 MG/2 ML VIAL IV SCH ×2 (08:27→22:59)
--- NOTE | 2022-06-24 11:47 | P.PN ---
Subjective Progress Note Date: 06/24/22 Hospital course: Patient is a very pleasant 57-year-old female with a past medical history of diverticulitis whom underwent recent hospitalization from 06/06/22 through 06/10/22 after presenting with left lower quadrant abdominal pain and being diagnosed with complicated perforated sigmoid diverticulitis which resulted and undergoing a CT guided drainage of her intra-abdominal abscess and drain was left in place. Patient presented to the hospital overnight with a chief complaint of decreased output from this drain and experiencing fecal appearing drainage around the drain insertion site. Patient reports this is accompanied by significant left lower quadrant abdominal pain and pain throughout her left buttocks. Patient denied having any fevers, chills, nausea, vomiting, or any urinary complaints. Patient reports when she was discharged home from the hospital on 06/10/22 she was experiencing normal bowel movements however reports she has not had a bowel movement in over 2 days. Patient has been receiving IV antibiotics Rocephin and Flagyl managed through infectious disease on an outpatient basis. Previous culture results obtained upon insertion of abscess drainage catheter on 06/07/22 revealed anaerobic culture positive for gram- negative bacilli and Gram stain positive forbeta-hemolytic Streptococcus and E. coli. Upon arrival to the emergency department, patient underwent full evalua tion. Labs completed revealing leukocytosis with a left shift with WBC count of 15.0, hypokalemia with potassium of 3.2, an elevated alkaline phosphatase of 127. Patient was admitted under Gen. surgery team and we were consulted for medical management throughout patient's hospitalization. CT abdomen and pelvis with contrast was obtained which revealed redemonstration of contained perforated sigmoid diverticulitis with slight increase in size of left pelvic abscess measuring up to 10.5 cm with larger a component (previously 7.1 cm) and a new foci of gas and edematous appearance of left piriformis and left gluteal musculature with surrounding fat stranding concerning for an infectious process, unable to exclude necrotizing fasciitis. general surgeon and infectious disease both notified. Rocephin discontinued and patient started on Unasyn per recommendation of infectious disease. General surgery took patient to OR and pt underwent a sigmoid colectomy with end colostomy placement. Progress Note Update: Patient was seen and examined. Patient reports getting 1-3 hours of sleep at [facility] daily. Pain is well controlled in her buttocks and ostomy site. Physical exam: General: non toxic, no distress, appears at stated age Derm: warm, dry Head: atraumatic, normocephalic, symmetric Eyes: EOMI, no lid lag, anicteric sclera Mouth: no lip lesion, mucus membranes moist Cardiovascular: S1S2 reg, no murmur Lungs: CTA bilateral, no rhonchi, no rales , no accessory muscle use Ext: no gross muscle atrophy, no edema, no contractures Neuro: no focal neuro deficits Psych: Alert, oriented, appropriate affect Assessment and Plan of Care: Peritonitis Perforated sigmoid diverticulitis Left buttock abscess status post incision and drainage Leukocytosis -Management through primary admitting general surgery team including DVT prophylaxis, pain management, wound care, and drain management. -Cultures obtained on 06/07/22 revealing anaerobic culture positive for gram- negative bacilli and Gram stain positive for beta-hemolytic Streptococcus and E. coli. -OR on 06/18 for I&D with toi drain placement, wound culture growing pseudomonas -Patient to continue current IV antibiotics with Flagyl and Zosyn -Blood cultures - NGTD -Infectious disease Following -Symptomatic care and pain management -PT/OT Normocytic anemia -Stable -No signs of acute bleeding -Continue to monitor Resolved: Hypokalemia Case discussed with Dr. Rollins. Plans for cefepime 2 g IV every 8 hours, Flagyl 500 mg every 8 hours for 2 weeks. Patient will obtain her antibiotics from [facility] to be administered at home. Case discussed with Dr. Padilla, plans to observe over the weekend. Thank you for allowing us to participate in the care of this pleasant patient. Do not hesitate to contact us with questions. Someone can be reached from the [facility] hospitalist group all hours of the day at [phone] or via [employer]. Objective - Vital Signs Vital signs: Vital Signs Temp 98.0 F 06/24/22 08:00 Pulse 74 06/24/22 08:00 Resp 22 06/24/22 08:00 BP 122/71 06/24/22 08:00 Pulse Ox 98 06/24/22 08:00 FiO2 Intake & Output 06/23/22 06/24/22 06/24/22 18:59 06:59 18:59 Intake Total 1000 Output Total 50 Balance -50 1000 Weight 99.79 kg Intake: Intake, IV Titration 400 Amount Piperacillin-Tazobactam 3 200 .375 gm In Sodium Chloride 0.9% 100 ml @ 25 mls/hr IVPB Q8HR [facility] Rx# :[id number] metroNIDAZOLE-NS PMX 500 200 mg In Saline 1 100ml.bag @ 100 mls/hr IVPB Q8H [facility] Rx#:[id number] Oral 600 Output: Drainage 50 Anterior Abdomen 50 Other: Voiding Method Toilet Toilet Toilet Diaper Diaper Diaper Incontinent Incontinent Incontinent # Voids 2 4 # Bowel Movements 1 - Labs CBC & Chem 7: 06/21/22 08:36 06/22/22 05:46 Labs: Microbiology - Last 24 Hours (Table) 06/18/22 12:40 Anaerobic Culture - Final Buttock
--- NOTE | 2022-06-24 14:06 | P.PN ---
Subjective Progress Note Date: 06/24/22 Principal diagnosis: Diverticulitis Patient complaining of fatigue. Says her pain is definitely improved. She is having mild right lower abdominal pain at times. Left hip drain remains in place. Ostomy functioning. Objective - Vital Signs Vital signs: Vital Signs Temp 98.0 F 06/24/22 08:00 Pulse 74 06/24/22 08:00 Resp 22 06/24/22 08:00 BP 122/71 06/24/22 08:00 Pulse Ox 98 06/24/22 08:00 FiO2 Intake & Output 06/23/22 06/24/22 06/24/22 18:59 06:59 18:59 Intake Total 1000 Output Total 50 Balance -50 1000 Weight 99.79 kg Intake: Intake, IV Titration 400 Amount Piperacillin-Tazobactam 3 200 .375 gm In Sodium Chloride 0.9% 100 ml @ 25 mls/hr IVPB Q8HR [facility] Rx# :[id number] metroNIDAZOLE-NS PMX 500 200 mg In Saline 1 100ml.bag @ 100 mls/hr IVPB Q8H [facility] Rx#:[id number] Oral 600 Output: Drainage 50 Anterior Abdomen 50 Other: Voiding Method Toilet Toilet Toilet Diaper Diaper Diaper Incontinent Incontinent Incontinent # Voids 2 4 # Bowel Movements 1 - Exam Abdomen: Soft, nondistended, lower aspect of incision open and draining serous fluid that is scant, ostomy difficult to visualize fully but does not appear ischemic or retracted Left hip drains in place - Labs CBC & Chem 7: 06/21/22 08:36 06/22/22 05:46 Labs: Microbiology - Last 24 Hours (Table) 06/18/22 12:40 Anaerobic Culture - Final Buttock Assessment and Plan (1) Colonic diverticular abscess Narrative/Plan: Patient slowly improving. Continue local wound care. Continue to monitor os darlene after dehiscence noted. Continue diet as tolerated. Antibiotics per infectious disease. Current Visit: Yes Status: Acute Code(s): K57.20 - DVTRCLI OF LG INT W PERFORATION AND ABSCESS W/O BLEEDING SNOMED Code(s): 987425986
--- NOTE | 2022-06-24 15:15 | P.PN ---
Subjective Progress Note Date: 06/24/22 Principal diagnosis: Perforated diverticulitis and intra-abdominal abscess Patient is a 57-year-old female who was recently admitted at this facility diagnosed with a perforated diverticulitis intra-abdominal abscess status post CT-guided drainage culture positive for E. coli and strep and anaerobes discharged on Rocephin and Flagyl subsequently presented back to the hospital with more pain and her drainage catheter site and no output patient was noticed to have worsening abscess and inflammation around the drainage catheter site patient is status post laparotomy diverting colostomy abdominal washout and no cultures. Patient did have CT of the left hip contusion shows large abscess and still showing the pelvic abscess unchanged from the previous CT On today's evaluation that is 06/24/2022, the patient remains to be febrile, the patient is breathing comfortably on room air , the patient denies any chest pain shortness of breath or cough , the patient abdominal and left total pain has decreased in intensity Objective - Vital Signs Vital signs: Vital Signs Temp 97.7 F 06/24/22 14:00 Pulse 58 L 06/24/22 14:00 Resp 22 06/24/22 14:00 BP 113/48 06/24/22 14:00 Pulse Ox 97 06/24/22 14:00 FiO2 Intake & Output 06/23/22 06/24/22 06/24/22 18:59 06:59 18:59 Intake Total 1000 Output Total 50 Balance -50 1000 Weight 99.79 kg Intake: Intake, IV Titration 400 Amount Piperacillin-Tazobactam 3 200 .375 gm In Sodium Chloride 0.9% 100 ml @ 25 mls/hr IVPB Q8HR [facility] Rx# :[id number] metroNIDAZOLE-NS PMX 500 200 mg In Saline 1 100ml.bag @ 100 mls/hr IVPB Q8H [facility] Rx#:[id number] Oral 600 Output: Drainage 50 Anterior Abdomen 50 Other: Voiding Method Toilet Toilet Toilet Diaper Diaper Diaper Incontinent Incontinent Incontinent # Voids 2 4 # Bowel Movements 1 - Exam GENERAL DESCRIPTION: Middle-aged female lying in bed in no distress RESPIRATORY SYSTEM: Unlabored breathing , decreased breath sounds at bases HEART: S1 S2 regular rate and rhythm , ABDOMEN: Soft , abdominal incision is currently dressed EXTREMITIES: No edema feet - Labs CBC & Chem 7: 06/21/22 08:36 06/22/22 05:46 Labs: Microbiology - Last 24 Hours (Table) 06/18/22 12:40 Anaerobic Culture - Final Buttock Assessment and Plan (1) Pelvic abscess Current Visit: No Status: Acute Code(s): [id number] - SNOMED Code(s): 291235352 (2) Perforation of sigmoid colon due to diverticulitis Current Visit: No Status: Acute Code(s): K57.20 - DVTRCLI OF LG INT W PERFORATION AND ABSCESS W/O BLEEDING SNOMED Code(s): 4732264331506452 Plan: 1patient presented to hospital with drainage around the CT-guided drainage catheter site and this patient noticed to have worsening of the intra-abdominal abscess and some inflammation around the drainage catheter site status post laparotomy and diverting colostomy and washout of the pelvic abscess unfortunately no cultures were done with the recent CT-guided fluid cultures were positive for E. coli strep and anaerobes 2patient did have a CT of the hip showing a large intramuscular abscess and the pelvic abscess was unchanged patient is status post drainage of the left gluteal abscess and culture has been finalized and pseudomonas aeruginosa sensitive pathogen 3patient has shown some clinical improvement and will continue with Zosyn with a plan to finish therapy with IV cefepime and Flagyl 2 weeks and a close outpatient follow-up Time with Patient: Less than 30
[2022-06-24] MEDS: HYDROmorphone 1 MG/ML 1 ML SYRINGE IVP PRN (17:48)
[2022-06-25] MEDS: HYDROmorphone 1 MG/ML 1 ML SYRINGE IVP PRN (01:33)
[2022-06-25] MEDS: metroNIDAZOLE-NS PMX 500 MG in SALINE 1 100ML.BAG IVPB SCH ×3 (05:36→20:41)
[2022-06-25] MEDS: HYDROcodone/APAP 5-325MG 1 EACH TAB PO PRN ×3 (05:37→20:42)
--- NOTE | 2022-06-25 09:13 | P.PN ---
Subjective Progress Note Date: 06/25/22 Hospital course: Patient is a very pleasant 57-year-old female with a past medical history of diverticulitis whom underwent recent hospitalization from 06/06/22 through 06/10/22 after presenting with left lower quadrant abdominal pain and being diagnosed with complicated perforated sigmoid diverticulitis which resulted and undergoing a CT guided drainage of her intra-abdominal abscess and drain was left in place. Patient presented to the hospital overnight with a chief complaint of decreased output from this drain and experiencing fecal appearing drainage around the drain insertion site. Patient reports this is accompanied by significant left lower quadrant abdominal pain and pain throughout her left buttocks. Patient denied having any fevers, chills, nausea, vomiting, or any urinary complaints. Patient reports when she was discharged home from the hospital on 06/10/22 she was experiencing normal bowel movements however reports she has not had a bowel movement in over 2 days. Patient has been receiving IV antibiotics Rocephin and Flagyl managed through infectious disease on an outpatient basis. Previous culture results obtained upon insertion of abscess drainage catheter on 06/07/22 revealed anaerobic culture positive for gram- negative bacilli and Gram stain positive forbeta-hemolytic Streptococcus and E. coli. Upon arrival to the emergency department, patient underwent full evalua tion. Labs completed revealing leukocytosis with a left shift with WBC count of 15.0, hypokalemia with potassium of 3.2, an elevated alkaline phosphatase of 127. Patient was admitted under Gen. surgery team and we were consulted for medical management throughout patient's hospitalization. CT abdomen and pelvis with contrast was obtained which revealed redemonstration of contained perforated sigmoid diverticulitis with slight increase in size of left pelvic abscess measuring up to 10.5 cm with larger a component (previously 7.1 cm) and a new foci of gas and edematous appearance of left piriformis and left gluteal musculature with surrounding fat stranding concerning for an infectious process, unable to exclude necrotizing fasciitis. general surgeon and infectious disease both notified. Rocephin discontinued and patient started on Unasyn per recommendation of infectious disease. General surgery took patient to OR and pt underwent a sigmoid colectomy with end colostomy placement. Progress Note Update: Patient was seen and examined. Patient reports that she was able to sleep throu gh the night. She reports mild cramping at the site of ostomy. Her pain in her buttocks has improved. Patient would like her diet to be advanced. Physical exam: General: non toxic, no distress, appears at stated age Derm: warm, dry Head: atraumatic, normocephalic, symmetric Eyes: EOMI, no lid lag, anicteric sclera Mouth: no lip lesion, mucus membranes moist Cardiovascular: S1S2 reg, no murmur Lungs: CTA bilateral, no rhonchi, no rales , no accessory muscle use Ext: no gross muscle atrophy, no edema, no contractures Neuro: no focal neuro deficits Psych: Alert, oriented, appropriate affect Ostomy visualized with bag full of stool Assessment and Plan of Care: Peritonitis Perforated sigmoid diverticulitis Left buttock abscess status post incision and drainage Leukocytosis -Management through primary admitting general surgery team including DVT prophylaxis, pain management, wound care, and drain management. -Cultures obtained on 06/07/22 revealing anaerobic culture positive for gram- negative bacilli and Gram stain positive for beta-hemolytic Streptococcus and E. coli. -OR on 06/18 for I&D with toi drain placement, wound culture growing pseudomonas -Patient to continue current IV antibiotics with Flagyl and Zosyn -Blood cultures - NGTD -Infectious disease Following -Symptomatic care and pain management -PT/OT Normocytic anemia -Stable -No signs of acute bleeding -Continue to monitor Resolved: Hypokalemia Case discussed with Dr. Rollins. Plans for cefepime 2 g IV every 8 hours, Flagyl 500 mg every 8 hours for 2 weeks. Patient will obtain her antibiotics from [facility] to be administered at home. Case discussed with Dr. Padilla, plans to observe over the weekend. Thank you for allowing us to participate in the care of this pleasant patient. Do not hesitate to contact us with questions. Someone can be reached from the [facility] hospitalist group all hours of the day at [phone] or via [employer]. Objective - Vital Signs Vital signs: Vital Signs Temp 97.5 F L 06/25/22 08:00 Pulse 62 06/25/22 08:00 Resp 16 06/25/22 03:05 BP 129/72 06/25/22 08:00 Pulse Ox 99 06/25/22 08:00 FiO2 Intake & Output 06/24/22 06/25/22 06/25/22 18:59 06:59 18:59 Output Total 10 Balance -10 Output: Drainage 10 Anterior Abdomen 10 Other: Voiding Method Toilet Toilet Diaper Diaper Incontinent # Voids 4 3 1 - Labs CBC & Chem 7: 06/21/22 08:36 06/22/22 05:46
[2022-06-25] MEDS: GABAPENTIN 300 MG CAP PO SCH ×3 (10:33→20:41)
[2022-06-25] MEDS: FAMOTIDINE 20 MG/2 ML VIAL IV SCH ×2 (10:34→20:41)
[2022-06-25] MEDS: PIPERACILLIN-TAZOBACTAM 3.375 GM in SODIUM CHLORIDE 0.9% 100 ML IVPB SCH ×2 (10:34→15:32)
[2022-06-25] MEDS: ENOXAPARIN 40 MG/0.4 ML SYRINGE SQ SCH (10:34)
--- NOTE | 2022-06-25 11:31 | P.PN ---
Subjective Progress Note Date: 06/25/22 Principal diagnosis: Diverticulitis Patient seems to be doing somewhat better today. She was ambulating wire to my arrival. Complaining of mild soreness left hip and right lower abdomen. She is tolerating full liquids. She would like solid foods. No nausea or vomiting. No labs from today. Objective - Vital Signs Vital signs: Vital Signs Temp 97.5 F L 06/25/22 08:00 Pulse 62 06/25/22 08:00 Resp 16 06/25/22 03:05 BP 129/72 06/25/22 08:00 Pulse Ox 99 06/25/22 08:00 FiO2 Intake & Output 06/24/22 06/25/22 06/25/22 18:59 06:59 18:59 Output Total 10 Balance -10 Output: Drainage 10 Anterior Abdomen 10 Other: Voiding Method Toilet Toilet Diaper Diaper Incontinent # Voids 4 3 1 - Exam Abdomen: Soft, nondistended, lower incisional wound with serous drainage, mild tenderness, ostomy functioning, no obvious ostomy retraction is ischemia Left thigh incisions with Georgette drain in place, mild tenderness - Labs CBC & Chem 7: 06/21/22 08:36 06/22/22 05:46 Assessment and Plan (1) Colonic diverticular abscess Narrative/Plan: Patient continues to gradually improve. Continue antibiotics. Will advance diet to regular at this time. Continue increasing activity. Monitor wound sites. Current Visit: Yes Status: Acute Code(s): K57.20 - DVTRCLI OF LG INT W PERFORATION AND ABSCESS W/O BLEEDING SNOMED Code(s): 275054856
[2022-06-25] MEDS: CYCLOBENZAPRINE 5 MG TAB PO PRN (20:42)
[2022-06-26] MEDS: PIPERACILLIN-TAZOBACTAM 3.375 GM in SODIUM CHLORIDE 0.9% 100 ML IVPB SCH ×3 (00:37→16:07)
[2022-06-26] MEDS: HYDROmorphone 1 MG/ML 1 ML SYRINGE IVP PRN (03:10)
[2022-06-26] MEDS: metroNIDAZOLE-NS PMX 500 MG in SALINE 1 100ML.BAG IVPB SCH ×3 (05:50→20:19)
[2022-06-26 09:08] LABS: Basophils # (A) 0.02 X 10*3/uL (0.00-0.10); Basophils % (A) 0.3 %; Eosinophils # (A) 0.07 X 10*3/uL (0.04-0.35); Eosinophils % (A) 1.1 %; HCT 30.7 % (37.2-46.3); HGB 9.5 g/dL (12.0-15.0); Immature Grans, Automated 0.6 %; Lymphocytes # (A) 0.86 X 10*3/uL (0.90-5.00); Lymphocytes % (A) 13.6 %; MCH 28.7 pg (27.0-32.0); MCHC 30.9 g/dL (32.0-37.0); MCV 92.7 fL (80.0-97.0); Mean Platelet Volume 11.2 fL (9.5-12.2); Monocytes # (A) 0.43 X 10*3/uL (0.20-1.00); Monocytes % (A) 6.8 %; NRBC Per 100 WBC 0 /100 WBCS (0.0-0.0); Neutrophils # (A) 4.92 X 10*3/uL (1.80-7.70); Neutrophils % (A) 77.6 %; Platelet Count 226 X 10*3/uL (140-440); RBC 3.31 X 10*6/uL (4.10-5.20); RDW 15.4 % (11.5-14.5); WBC 6.34 X 10*3/uL (4.50-10.00)
[2022-06-26] MEDS: HYDROcodone/APAP 5-325MG 1 EACH TAB PO PRN ×3 (09:51→20:42)
[2022-06-26] MEDS: ENOXAPARIN 40 MG/0.4 ML SYRINGE SQ SCH (09:53)
[2022-06-26] MEDS: FAMOTIDINE 20 MG/2 ML VIAL IV SCH ×2 (09:53→20:42)
[2022-06-26] MEDS: GABAPENTIN 300 MG CAP PO SCH ×3 (09:53→20:19)
--- NOTE | 2022-06-26 11:11 | P.PN ---
Subjective Progress Note Date: 06/26/22 Hospital course: Patient is a very pleasant 57-year-old female with a past medical history of diverticulitis whom underwent recent hospitalization from 06/06/22 through 06/10/22 after presenting with left lower quadrant abdominal pain and being diagnosed with complicated perforated sigmoid diverticulitis which resulted and undergoing a CT guided drainage of her intra-abdominal abscess and drain was left in place. Patient presented to the hospital overnight with a chief complaint of decreased output from this drain and experiencing fecal appearing drainage around the drain insertion site. Patient reports this is accompanied by significant left lower quadrant abdominal pain and pain throughout her left buttocks. Patient denied having any fevers, chills, nausea, vomiting, or any urinary complaints. Patient reports when she was discharged home from the hospital on 06/10/22 she was experiencing normal bowel movements however reports she has not had a bowel movement in over 2 days. Patient has been receiving IV antibiotics Rocephin and Flagyl managed through infectious disease on an outpatient basis. Previous culture results obtained upon insertion of abscess drainage catheter on 06/07/22 revealed anaerobic culture positive for gram- negative bacilli and Gram stain positive forbeta-hemolytic Streptococcus and E. coli. Upon arrival to the emergency department, patient underwent full evalua tion. Labs completed revealing leukocytosis with a left shift with WBC count of 15.0, hypokalemia with potassium of 3.2, an elevated alkaline phosphatase of 127. Patient was admitted under Gen. surgery team and we were consulted for medical management throughout patient's hospitalization. CT abdomen and pelvis with contrast was obtained which revealed redemonstration of contained perforated sigmoid diverticulitis with slight increase in size of left pelvic abscess measuring up to 10.5 cm with larger a component (previously 7.1 cm) and a new foci of gas and edematous appearance of left piriformis and left gluteal musculature with surrounding fat stranding concerning for an infectious process, unable to exclude necrotizing fasciitis. general surgeon and infectious disease both notified. Rocephin discontinued and patient started on Unasyn per recommendation of infectious disease. General surgery took patient to OR and pt underwent a sigmoid colectomy with end colostomy placement. Progress Note Update: Patient was seen and examined. Patient reports cramping in her bilateral lower extremities and at the site on ostomy. Complaints from overnight where she had to wait 4 hours for pain medication and help. CBC shows hemoglobin of 9.5 with MCV of 92.7. CMP and magnesium levels pending. Physical exam: General: non toxic, no distress, appears at stated age Derm: warm, dry Head: atraumatic, normocephalic, symmetric Eyes: EOMI, no lid lag, anicteric sclera Mouth: no lip lesion, mucus membranes moist Cardiovascular: S1S2 reg, no murmur Lungs: CTA bilateral, no rhonchi, no rales , no accessory muscle use Ext: no gross muscle atrophy, no edema, no contractures Neuro: no focal neuro deficits Psych: Alert, oriented, appropriate affect Ostomy visualized with bag full of stool Assessment and Plan of Care: Peritonitis Perforated sigmoid diverticulitis Left buttock abscess status post incision and drainage Leukocytosis -Management through primary admitting general surgery team including DVT prophylaxis, pain management, wound care, and drain management. -Cultures obtained on 06/07/22 revealing anaerobic culture positive for gram- negative bacilli and Gram stain positive for beta-hemolytic Streptococcus and E. coli. -OR on 06/18 for I&D with toi drain placement, wound culture growing pseudomonas -Patient to continue current IV antibiotics with Flagyl and Zosyn -Blood cultures - NGTD -Infectious disease Following -Symptomatic care and pain management -PT/OT Normocytic anemia -Stable -No signs of acute bleeding -Continue to monitor Resolved: Hypokalemia Case discussed with Dr. Rollins. Plans for cefepime 2 g IV every 8 hours, Flagyl 500 mg every 8 hours for 2 weeks. Patient will obtain her antibiotics from [facility] to be administered at home. Case discussed with Dr. Padilla, plans to observe over the weekend. Thank you for allowing us to participate in the care of this pleasant patient. Do not hesitate to contact us with questions. Someone can be reached from the [facility] hospitalist group all hours of the day at [phone] or via [employer]. Objective - Vital Signs Vital signs: Vital Signs Temp 98.1 F 06/26/22 08:00 Pulse 63 06/26/22 08:00 Resp 17 06/26/22 02:00 BP 134/75 06/26/22 08:00 Pulse Ox 97 06/26/22 08:00 FiO2 Intake & Output 06/25/22 06/26/22 06/26/22 18:59 06:59 18:59 Intake Total 200 Output Total 5 Balance 200 -5 Intake: Intake, IV Titration 200 Amount Piperacillin-Tazobactam 3 200 .375 gm In Sodium Chloride 0.9% 100 ml @ 25 mls/hr IVPB Q8HR [facility] Rx# :[id number] Output: Drainage 5 Anterior Abdomen 5 Other: Voiding Method Toilet Diaper # Voids 2 5 - Labs CBC & Chem 7: 06/26/22 04:13 06/22/22 05:46 Labs: Abnormal Lab Results - Last 24 Hours (Table) 06/26/22 Range/Units 04:13 RBC 3.31 L (4.10-5.20) X 10*6/uL Hgb 9.5 L (12.0-15.0) g/dL Hct 30.7 L (37.2-46.3) % MCHC 30.9 L (32.0-37.0) g/dL RDW 15.4 H (11.5-14.5) % Lymphocytes # 0.86 L (0.90-5.00) X 10*3/uL
[2022-06-26 11:49] LABS: African American GFR (CKD) 110.7 (60.0-200.0); Albumin 2.6 g/dL (3.8-4.9); Albumin/Globulin Ratio 1.08 (1.60-3.17); Anion Gap 6.7 mmol/L (10.00-18.00); BUN/Creat Ratio 7.43 Ratio (12.00-20.00); Blood Urea Nitrogen 5.2 mg/dL (9.0-27.0); Calcium 7.9 mg/dL (8.7-10.3); Carbon Dioxide 27.3 mmol/L (20.0-27.5); Globulin 2.4 g/dL (1.6-3.3); Non-African American GFR(CKD) 95.5 (60.0-200.0); Potassium 3.4 mmol/L (3.5-5.5); Total Bilirubin 0.4 mg/dL (0.30-1.20)
--- NOTE | 2022-06-26 11:57 | P.PN ---
Subjective Progress Note Date: 06/26/22 Principal diagnosis: Diverticulitis Patient says she is been sitting up in the chair for the last hour or so. Pain seems better today. She is tolerating regular food. No nausea or vomiting. Ostomy functioning. She is afebrile. White blood cell count remains normal. Objective - Vital Signs Vital signs: Vital Signs Temp 98.1 F 06/26/22 08:00 Pulse 63 06/26/22 08:00 Resp 17 06/26/22 02:00 BP 134/75 06/26/22 08:00 Pulse Ox 97 06/26/22 08:00 FiO2 Intake & Output 06/25/22 06/26/22 06/26/22 18:59 06:59 18:59 Intake Total 200 Output Total 5 Balance 200 -5 Intake: Intake, IV Titration 200 Amount Piperacillin-Tazobactam 3 200 .375 gm In Sodium Chloride 0.9% 100 ml @ 25 mls/hr IVPB Q8HR [facility] Rx# :[id number] Output: Drainage 5 Anterior Abdomen 5 Other: Voiding Method Toilet Diaper # Voids 2 5 1 # Bowel Movements 1 - Exam Abdomen: Soft, nondistended, wound clean, ostomy function, minimal abdominal tenderness Left hip [place] drain in place, minimal tenderness, minimal drainage - Labs CBC & Chem 7: 06/26/22 04:13 06/26/22 04:13 Labs: Abnormal Lab Results - Last 24 Hours (Table) 06/26/22 06/26/22 Range/Units 04:13 04:13 RBC 3.31 L (4.10-5.20) X 10*6/uL Hgb 9.5 L (12.0-15.0) g/dL Hct 30.7 L (37.2-46.3) % MCHC 30.9 L (32.0-37.0) g/dL RDW 15.4 H (11.5-14.5) % Lymphocytes # 0.86 L (0.90-5.00) X 10*3/uL Potassium 3.4 L (3.5-5.5) mmol/L Anion Gap 6.70 L (10.00-18.00) mmol/L BUN 5.2 L (9.0-27.0) mg/dL BUN/Creatinine Ratio 7.43 L (12.00-20.00) Ratio Calcium 7.9 L (8.7-10.3) mg/dL Total Protein 5.0 L (6.2-8.2) g/dL Albumin 2.6 L (3.8-4.9) g/dL Albumin/Globulin Ratio 1.08 L (1.60-3.17) g/dL Assessment and Plan (1) Colonic diverticular abscess Narrative/Plan: Patient slowly improving. Continue antibiotics. Continue diet as tolerated. Continue local wound care. Current Visit: Yes Status: Acute Code(s): K57.20 - DVTRCLI OF LG INT W PERFORATION AND ABSCESS W/O BLEEDING SNOMED Code(s): 889360235
[2022-06-26] MEDS: CYCLOBENZAPRINE 5 MG TAB PO PRN (20:42)
--- NOTE | 2022-06-26 20:54 | P.PN ---
Subjective Progress Note Date: 06/25/22 Principal diagnosis: Perforated diverticulitis and intra-abdominal abscess Patient is a 57-year-old female who was recently admitted at this facility diagnosed with a perforated diverticulitis intra-abdominal abscess status post CT-guided drainage culture positive for E. coli and strep and anaerobes discharged on Rocephin and Flagyl subsequently presented back to the hospital with more pain and her drainage catheter site and no output patient was noticed to have worsening abscess and inflammation around the drainage catheter site patient is status post laparotomy diverting colostomy abdominal washout and no cultures. Patient did have CT of the left hip contusion shows large abscess and still showing the pelvic abscess unchanged from the previous CT On today's evaluation that is 06/25/2022, the patient denies any fever or chills, the patient is breathing comfortably on room air , the patient denies any chest pain shortness of breath or cough , the patient abdominal and left gluteal pain has decreased in intensity, denies any new symptoms Objective - Vital Signs Vital signs: Vital Signs Temp 98.3 F 06/25/22 14:00 Pulse 63 06/25/22 14:00 Resp 16 06/25/22 03:05 BP 160/67 06/25/22 14:00 Pulse Ox 98 06/25/22 14:00 FiO2 Intake & Output 06/24/22 06/25/22 06/25/22 18:59 06:59 18:59 Output Total 10 Balance -10 Output: Drainage 10 Anterior Abdomen 10 Other: Voiding Method Toilet Toilet Diaper Diaper Incontinent # Voids 4 3 1 - Exam GENERAL DESCRIPTION: Middle-aged female lying in bed in no distress RESPIRATORY SYSTEM: Unlabored breathing , decreased breath sounds at bases HEART: S1 S2 regular rate and rhythm , ABDOMEN: Soft , abdominal incision is currently dressed EXTREMITIES: No edema feet - Labs CBC & Chem 7: 06/26/22 04:13 06/26/22 04:13 Assessment and Plan (1) Pelvic abscess Current Visit: No Status: Acute Code(s): BKB4195 - SNOMED Code(s): 386443957 (2) Perforation of sigmoid colon due to diverticulitis Current Visit: No Status: Acute Code(s): K57.20 - DVTRCLI OF LG INT W PERFORATION AND ABSCESS W/O BLEEDING SNOMED Code(s): 5115240853896315 Plan: 1patient presented to hospital with drainage around the CT-guided drainage catheter site and this patient noticed to have worsening of the intra-abdominal abscess and some inflammation around the drainage catheter site status post laparotomy and diverting colostomy and washout of the pelvic abscess unfortunately no cultures were done with the recent CT-guided fluid cultures were positive for E. coli strep and anaerobes 2patient did have a CT of the hip showing a large intramuscular abscess and the pelvic abscess was unchanged patient is status post drainage of the left gluteal abscess and culture has been finalized and pseudomonas aeruginosa sensitive pa thogen 3patient is slowly clinically improving and will continue with the current treatment of Zosyn with a plan to finish therapy with IV cefepime and Flagyl 2 weeks Time with Patient: Less than 30
--- NOTE | 2022-06-26 20:55 | P.PN ---
Subjective Progress Note Date: 06/26/22 Principal diagnosis: Perforated diverticulitis and intra-abdominal abscess Patient is a 57-year-old female who was recently admitted at this facility diagnosed with a perforated diverticulitis intra-abdominal abscess status post CT-guided drainage culture positive for E. coli and strep and anaerobes discharged on Rocephin and Flagyl subsequently presented back to the hospital with more pain and her drainage catheter site and no output patient was noticed to have worsening abscess and inflammation around the drainage catheter site patient is status post laparotomy diverting colostomy abdominal washout and no cultures. Patient did have CT of the left hip contusion shows large abscess and still showing the pelvic abscess unchanged from the previous CT On today's evaluation that is 06/26/2022, the patient continues to be afebrile, the patient is breathing comfortably on room air , the patient denies any chest pain shortness of breath or cough , the patient abdominal and left gluteal pain has decreased in intensity, and mention overall drainage has decreased Objective - Vital Signs Vital signs: Vital Signs Temp 98.0 F 06/26/22 14:00 Pulse 62 06/26/22 14:00 Resp 20 06/26/22 14:00 BP 141/61 06/26/22 14:00 Pulse Ox 96 06/26/22 14:00 FiO2 Intake & Output 06/25/22 06/26/22 06/26/22 18:59 06:59 18:59 Intake Total 200 100 Output Total 5 Balance 200 -5 100 Intake: Intake, IV Titration 200 100 Amount Piperacillin-Tazobactam 3 200 100 .375 gm In Sodium Chloride 0.9% 100 ml @ 25 mls/hr IVPB Q8HR [facility] Rx# :[id number] Output: Drainage 5 Anterior Abdomen 5 Other: Voiding Method Toilet Diaper # Voids 2 5 1 # Bowel Movements 1 - Exam GENERAL DESCRIPTION: Middle-aged female lying in bed in no distress RESPIRATORY SYSTEM: Unlabored breathing , decreased breath sounds at bases HEART: S1 S2 regular rate and rhythm , ABDOMEN: Soft , abdominal incision is currently dressed EXTREMITIES: No edema feet - Labs CBC & Chem 7: 06/26/22 04:13 06/26/22 04:13 Labs: Abnormal Lab Results - Last 24 Hours (Table) 06/26/22 06/26/22 Range/Units 04:13 04:13 RBC 3.31 L (4.10-5.20) X 10*6/uL Hgb 9.5 L (12.0-15.0) g/dL Hct 30.7 L (37.2-46.3) % MCHC 30.9 L (32.0-37.0) g/dL RDW 15.4 H (11.5-14.5) % Lymphocytes # 0.86 L (0.90-5.00) X 10*3/uL Potassium 3.4 L (3.5-5.5) mmol/L Anion Gap 6.70 L (10.00-18.00) mmol/L BUN 5.2 L (9.0-27.0) mg/dL BUN/Creatinine Ratio 7.43 L (12.00-20.00) Ratio Calcium 7.9 L (8.7-10.3) mg/dL Total Protein 5.0 L (6.2-8.2) g/dL Albumin 2.6 L (3.8-4.9) g/dL Albumin/Globulin Ratio 1.08 L (1.60-3.17) g/dL Assessment and Plan (1) Pelvic abscess Current Visit: No Status: Acute Code(s): UQN1881 - SNOMED Code(s): 345630419 (2) Perforation of sigmoid colon due to diverticulitis Current Visit: No Status: Acute Code(s): K57.20 - DVTRCLI OF LG INT W PERFORATION AND ABSCESS W/O BLEEDING SNOMED Code(s): 5317473028107382 Plan: 1patient presented to hospital with drainage around the CT-guided drainage catheter site and this patient noticed to have worsening of the intra-abdominal abscess and some inflammation around the drainage catheter site status post laparotomy and diverting colostomy and washout of the pelvic abscess unfortunately no cultures were done with the recent CT-guided fluid cultures were positive for E. coli strep and anaerobes 2patient did have a CT of the hip showing a large intramuscular abscess and the pelvic abscess was unchanged patient is status post drainage of the left gluteal abscess and culture has been finalized and pseudomonas aeruginosa sensitive pathogen 3patient has shown clinical improvement the patient is afebrile with a normal May benefit from repeat CAT scan before discharge to make sure abscesses getting smaller continue with the Zosyn will discuss with surgery Time with Patient: Less than 30
[2022-06-27] MEDS: ZOLPIDEM 5 MG TAB PO PRN (00:09)
[2022-06-27] MEDS: PIPERACILLIN-TAZOBACTAM 3.375 GM in SODIUM CHLORIDE 0.9% 100 ML IVPB SCH ×3 (00:11→17:31)
[2022-06-27] MEDS: HYDROmorphone 1 MG/ML 1 ML SYRINGE IVP PRN (05:32)
[2022-06-27] MEDS: metroNIDAZOLE-NS PMX 500 MG in SALINE 1 100ML.BAG IVPB SCH (05:33)
[2022-06-27 08:04] LABS: HCT 33.2 % (34.0-46.0); HGB 10.3 gm/dL (11.4-16.0); Hypochromasia Moderate; MCH 28.9 pg (25.0-35.0); MCHC 30.9 g/dL (31.0-37.0); MCV 93.6 fL (80.0-100.0); Mean Platelet Volume 8.7; Platelet Count 230 k/uL (150-450); RBC 3.55 m/uL (3.80-5.40); RDW 15.3 % (11.5-15.5); WBC 5.4 k/uL (3.8-10.6)
[2022-06-27 08:16] LABS: African American GFR (CKD) >90 (>60 ml/min/1.73 sqM); Anion Gap 6 mmol/L; Blood Urea Nitrogen 5 mg/dL (7-17); Calcium 7.6 mg/dL (8.4-10.2); Carbon Dioxide 24 mmol/L (22-30); Chloride 105 mmol/L (98-107); Glucose 91 mg/dL (74-99); Non-African American GFR(CKD) >90 (>60 ml/min/1.73 sqM); Potassium 3.4 mmol/L (3.5-5.1); Sodium 135 mmol/L (137-145)
[2022-06-27] MEDS: GABAPENTIN 300 MG CAP PO SCH ×3 (08:19→20:06)
[2022-06-27] MEDS: ENOXAPARIN 40 MG/0.4 ML SYRINGE SQ SCH (08:19)
[2022-06-27] MEDS ORDERED: Potassium Replacement Protocol 1 EACH MISC MISCELLANE PRN ×2 (08:25→08:58)
[2022-06-27] MEDS: FAMOTIDINE 20 MG/2 ML VIAL IV SCH ×2 (09:31→20:06)
[2022-06-27] MEDS: POTASSIUM CHLORIDE ER 20 MEQ TAB.ER PO SCH (09:31)
--- NOTE | 2022-06-27 10:11 | P.PN ---
Subjective Progress Note Date: 06/27/22 Principal diagnosis: Diverticulitis Patient says she is been sitting up in the chair for the last hour or so. Pain seems better today. She is tolerating regular food. No nausea or vomiting. Ostomy functioning. She is afebrile. Patient says she had some discomfort overnight. Objective - Vital Signs Vital signs: Vital Signs Temp 97.6 F 06/27/22 07:21 Pulse 55 L 06/27/22 07:21 Resp 14 06/27/22 07:21 BP 148/76 06/27/22 07:21 Pulse Ox 98 06/27/22 07:21 FiO2 Intake & Output 06/26/22 06/27/22 06/27/22 18:59 06:59 18:59 Intake Total 100 Output Total 600 Balance 100 -600 Intake: Intake, IV Titration 100 Amount Piperacillin-Tazobactam 3 100 .375 gm In Sodium Chloride 0.9% 100 ml @ 25 mls/hr IVPB Q8HR [facility] Rx# :[id number] Output: Urine 600 Other: Voiding Method Toilet Diaper # Voids 1 4 1 # Bowel Movements 1 - Exam Abdomen: Soft, nondistended, wound clean, ostomy function, no significant abdominal tenderness Left hip [place] drain in place, minimal tenderness, minimal drainage - Labs CBC & Chem 7: 06/27/22 07:31 06/27/22 07:31 Labs: Abnormal Lab Results - Last 24 Hours (Table) 06/26/22 06/27/22 06/27/22 Range/Units 04:13 07:31 07:31 RBC 3.55 L (3.80-5.40) m/uL Hgb 10.3 L (11.4-16.0) gm/dL Hct 33.2 L (34.0-46.0) % MCHC 30.9 L (31.0-37.0) g/dL Sodium 135 L (137-145) mmol/L Potassium 3.4 L 3.4 L (3.5-5.5) mmol/L Anion Gap 6.70 L (10.00-18.00) mmol/L BUN 5.2 L 5 L (9.0-27.0) mg/dL BUN/Creatinine Ratio 7.43 L (12.00-20.00) Ratio Calcium 7.9 L 7.6 L (8.7-10.3) mg/dL Total Protein 5.0 L (6.2-8.2) g/dL Albumin 2.6 L (3.8-4.9) g/dL Albumin/Globulin Ratio 1.08 L (1.60-3.17) g/dL Assessment and Plan (1) Colonic diverticular abscess Narrative/Plan: Patient seems to be doing fairly well. She is ambulating in the hallways. She is tolerating regular food. She would like to try to go home tomorrow. We'll discuss with discharge planning in the morning. Continue antibiotics. Current Visit: Yes Status: Acute Code(s): K57.20 - DVTRCLI OF LG INT W PERFORATION AND ABSCESS W/O BLEEDING SNOMED Code(s): 171651868
--- NOTE | 2022-06-27 10:19 | P.PN ---
Subjective Progress Note Date: 06/27/22 Hospital course: Patient is a very pleasant 57-year-old female with a past medical history of diverticulitis whom underwent recent hospitalization from 06/06/22 through 06/10/22 after presenting with left lower quadrant abdominal pain and being diagnosed with complicated perforated sigmoid diverticulitis which resulted and undergoing a CT guided drainage of her intra-abdominal abscess and drain was left in place. Patient presented to the hospital overnight with a chief complaint of decreased output from this drain and experiencing fecal appearing drainage around the drain insertion site. Patient reports this is accompanied by significant left lower quadrant abdominal pain and pain throughout her left buttocks. Patient denied having any fevers, chills, nausea, vomiting, or any urinary complaints. Patient reports when she was discharged home from the hospital on 06/10/22 she was experiencing normal bowel movements however reports she has not had a bowel movement in over 2 days. Patient has been receiving IV antibiotics Rocephin and Flagyl managed through infectious disease on an outpatient basis. Previous culture results obtained upon insertion of abscess drainage catheter on 06/07/22 revealed anaerobic culture positive for gram- negative bacilli and Gram stain positive forbeta-hemolytic Streptococcus and E. coli. Upon arrival to the emergency department, patient underwent full evalua tion. Labs completed revealing leukocytosis with a left shift with WBC count of 15.0, hypokalemia with potassium of 3.2, an elevated alkaline phosphatase of 127. Patient was admitted under Gen. surgery team and we were consulted for medical management throughout patient's hospitalization. CT abdomen and pelvis with contrast was obtained which revealed redemonstration of contained perforated sigmoid diverticulitis with slight increase in size of left pelvic abscess measuring up to 10.5 cm with larger a component (previously 7.1 cm) and a new foci of gas and edematous appearance of left piriformis and left gluteal musculature with surrounding fat stranding concerning for an infectious process, unable to exclude necrotizing fasciitis. general surgeon and infectious disease both notified. Rocephin discontinued and patient started on Unasyn per recommendation of infectious disease. General surgery took patient to OR and pt underwent a sigmoid colectomy with end colostomy placement. Progress Note Update: Patient was seen and examined. Patient reports cramping in her bilateral lower extremities and at the site on ostomy. Complaints from overnight where she had to wait 4 hours for pain medication and help. CBC shows hemoglobin of 10.3 with MCV of 93.6. BMP shows K 3.4 and Ca of 7.6. Physical exam: General: non toxic, no distress, appears at stated age Derm: warm, dry Head: atraumatic, normocephalic, symmetric Eyes: EOMI, no lid lag, anicteric sclera Mouth: no lip lesion, mucus membranes moist Cardiovascular: S1S2 reg, no murmur Lungs: CTA bilateral, no rhonchi, no rales , no accessory muscle use Ext: no gross muscle atrophy, no edema, no contractures Neuro: no focal neuro deficits Psych: Alert, oriented, appropriate affect Ostomy visualized with bag full of stool Assessment and Plan of Care: Peritonitis Perforated sigmoid diverticulitis Left buttock abscess status post incision and drainage Leukocytosis -Management through primary admitting general surgery team including DVT prophylaxis, pain management, wound care, and drain management. -Cultures obtained on 06/07/22 revealing anaerobic culture positive for gram- negative bacilli and Gram stain positive for beta-hemolytic Streptococcus and E. coli. -OR on 06/18 for I&D with toi drain placement, wound culture growing pseudomonas -Patient to continue current IV antibiotics with Flagyl and Zosyn -Blood cultures - NGTD -Infectious disease Following -Symptomatic care and pain management -PT/OT Normocytic anemia -Stable -No signs of acute bleeding -Continue to monitor Hypokalemia -Replace and Monitor Case discussed with Dr. Rollins. Plans for cefepime 2 g IV every 8 hours, Flagyl 500 mg every 8 hours for 2 weeks. Patient will obtain her antibiotics from [facility] to be administered at home. Case discussed with Dr. Padilla, plans to observe over the weekend. Thank you for allowing us to participate in the care of this pleasant patient. Do not hesitate to contact us with questions. Someone can be reached from the [facility] hospitalist group all hours of the day at [phone] or via perfect serve. Objective - Vital Signs Vital signs: Vital Signs Temp 97.6 F 06/27/22 07:21 Pulse 55 L 06/27/22 07:21 Resp 14 06/27/22 07:21 BP 148/76 06/27/22 07:21 Pulse Ox 98 06/27/22 07:21 FiO2 Intake & Output 06/26/22 06/27/22 06/27/22 18:59 06:59 18:59 Intake Total 100 Output Total 600 Balance 100 -600 Intake: Intake, IV Titration 100 Amount Piperacillin-Tazobactam 3 100 .375 gm In Sodium Chloride 0.9% 100 ml @ 25 mls/hr IVPB Q8HR [facility] Rx# :[id number] Output: Urine 600 Other: Voiding Method Toilet Diaper # Voids 1 4 1 # Bowel Movements 1 - Labs CBC & Chem 7: 06/27/22 07:31 06/27/22 07:31 Labs: Abnormal Lab Results - Last 24 Hours (Table) 06/26/22 06/27/22 06/27/22 Range/Units 04:13 07:31 07:31 RBC 3.55 L (3.80-5.40) m/uL Hgb 10.3 L (11.4-16.0) gm/dL Hct 33.2 L (34.0-46.0) % MCHC 30.9 L (31.0-37.0) g/dL Sodium 135 L (137-145) mmol/L Potassium 3.4 L 3.4 L (3.5-5.5) mmol/L Anion Gap 6.70 L (10.00-18.00) mmol/L BUN 5.2 L 5 L (9.0-27.0) mg/dL BUN/Creatinine Ratio 7.43 L (12.00-20.00) Ratio Calcium 7.9 L 7.6 L (8.7-10.3) mg/dL Total Protein 5.0 L (6.2-8.2) g/dL Albumin 2.6 L (3.8-4.9) g/dL Albumin/Globulin Ratio 1.08 L (1.60-3.17) g/dL
[2022-06-27] MEDS: HYDROcodone/APAP 5-325MG 1 EACH TAB PO PRN ×2 (13:05→20:06)
[2022-06-27] MEDS: CYCLOBENZAPRINE 5 MG TAB PO PRN (18:39)
[2022-06-28] MEDS: PIPERACILLIN-TAZOBACTAM 3.375 GM in SODIUM CHLORIDE 0.9% 100 ML IVPB SCH ×4 (00:16→23:25)
[2022-06-28] MEDS: HYDROmorphone 1 MG/ML 1 ML SYRINGE IVP PRN ×3 (01:52→21:59)
[2022-06-28] MEDS: IOPAMIDOL CONTRAST (ORAL USE) VIAL PO PRN ×2 (07:02→08:02)
--- NOTE | 2022-06-28 08:45 | P.PN ---
Subjective Progress Note Date: 06/27/22 Principal diagnosis: Perforated diverticulitis and intra-abdominal abscess Patient is a 57-year-old female who was recently admitted at this facility diagnosed with a perforated diverticulitis intra-abdominal abscess status post CT-guided drainage culture positive for E. coli and strep and anaerobes discharged on Rocephin and Flagyl subsequently presented back to the hospital with more pain and her drainage catheter site and no output patient was noticed to have worsening abscess and inflammation around the drainage catheter site patient is status post laparotomy diverting colostomy abdominal washout and no cultures. Patient did have CT of the left hip contusion shows large abscess and still showing the pelvic abscess unchanged from the previous CT On today's evaluation that is 06/27/2022, the patient denies any fever or any chills, the patient is breathing comfortably on room air , the patient denies any chest pain shortness of breath or cough , the patient abdominal and left gluteal pain has decreased in intensity, no new symptoms Objective - Vital Signs Vital signs: Vital Signs Temp 98.3 F 06/27/22 20:00 Pulse 59 L 06/27/22 20:00 Resp 18 06/27/22 20:00 BP 146/75 06/27/22 20:00 Pulse Ox 98 06/27/22 20:00 FiO2 Intake & Output 06/27/22 06/27/22 06/28/22 06:59 18:59 06:59 Output Total 600 10 Balance -600 -10 Output: Drainage 10 Anterior Abdomen 10 Urine 600 Other: Voiding Method Toilet Diaper # Voids 4 4 2 # Bowel Movements 1 - Exam GENERAL DESCRIPTION: Middle-aged female lying in bed in no distress RESPIRATORY SYSTEM: Unlabored breathing , decreased breath sounds at bases HEART: S1 S2 regular rate and rhythm , ABDOMEN: Soft , abdominal incision is currently dressed EXTREMITIES: No edema feet - Labs CBC & Chem 7: 06/27/22 07:31 06/27/22 11:51 Labs: Abnormal Lab Results - Last 24 Hours (Table) 06/27/22 06/27/22 Range/Units 07:31 07:31 RBC 3.55 L (3.80-5.40) m/uL Hgb 10.3 L (11.4-16.0) gm/dL Hct 33.2 L (34.0-46.0) % MCHC 30.9 L (31.0-37.0) g/dL Sodium 135 L (137-145) mmol/L Potassium 3.4 L (3.5-5.1) mmol/L BUN 5 L (7-17) mg/dL Calcium 7.6 L (8.4-10.2) mg/dL Assessment and Plan (1) Pelvic abscess Current Visit: No Status: Acute Code(s): WCC3225 - SNOMED Code(s): 108297 007 (2) Perforation of sigmoid colon due to diverticulitis Current Visit: No Status: Acute Code(s): K57.20 - DVTRCLI OF LG INT W PERFORATION AND ABSCESS W/O BLEEDING SNOMED Code(s): 0122240210821762 Plan: 1patient presented to hospital with drainage around the CT-guided drainage catheter site and this patient noticed to have worsening of the intra-abdominal abscess and some inflammation around the drainage catheter site status post laparotomy and diverting colostomy and washout of the pelvic abscess unfortunately no cultures were done with the recent CT-guided fluid cultures were positive for E. coli strep and anaerobes 2patient did have a CT of the hip showing a large intramuscular abscess and the pelvic abscess was unchanged patient is status post drainage of the left gluteal abscess and culture has been finalized and pseudomonas aeruginosa sensitive pathogen 3patient has shown clinical improvement however in view of overall complicated situation we will repeat a CT of abdominal pelvis in the morning before discharge to make sure abscess are going down continue with the Zosyn Time with Patient: Less than 30
[2022-06-28] MEDS: ENOXAPARIN 40 MG/0.4 ML SYRINGE SQ SCH (09:08)
[2022-06-28] MEDS: GABAPENTIN 300 MG CAP PO SCH ×3 (09:08→20:17)
[2022-06-28] MEDS: FAMOTIDINE 20 MG/2 ML VIAL IV SCH ×2 (09:08→20:18)
--- NOTE | 2022-06-28 09:30 | CT ---
EXAMINATION TYPE: CT abdomen pelvis w con DATE OF EXAM: 06/28/2022 COMPARISON: 06/17/2022 CT INDICATION: Post of drainage tube abdomen/gluteal abscess follow up DLP: 1683.5 mGycm, Automated exposure control for dose reduction was used. CONTRAST: 100 mL of Isovue 300. Study performed without Oral Contrast TECHNIQUE: Axial images were obtained from above the diaphragm to the pubic rami in the axial plane a t 5 mm thick sections. Reconstructed images are reviewed on the computer in the coronal plane. FINDINGS: Limited CT sections are obtained the lung bases. There is a small right pleural effusion. Compressiv e atelectasis at the right base.. CT ABDOMEN: Liver: Normal Spleen: Normal Pancreas: Normal Adrenal glands: Adrenal gland is enlarged measuring 3.6 cm and 21 Hounsfield units. Left adrenal glan d is normal. Gallbladder is unremarkable. Pancreas is atrophic. Kidneys appear normal without masses cysts or hydronephrosis There is thickening of the distal antrum of the stomach and proximal duodenum. Correlate for duodenit is and gastritis. Mild scattered inflammatory changes may be within the mesentery. There is an ostomy in the left lower quadrant. A catheter is within the lower pelvis. Gallbladder: Normal Kidneys: No masses are evident. No hydronephrosis is present. No cysts are present. Delayed images were obtained through the kidneys, which remain unremarkable. Aorta: Vascular calcification is within the aorta. Inferior vena cava: Normal. CT PELVIS: Uterus may contain some thickened endometrium. There is a large hypodense collection in th e right adnexal region measuring 7.8 x 4.2 cm present previously, this could be a pelvic abscess. Pre vious measurement 3.9 x 7.2 cm There is not identified within this structure at this time. Right adnexa appears normal. There is an open wound on the right lower anterior abdomen. Previous lef t gluteal abscess has decompressed with very minimal residual air. No residual fluid collection is ev ident. Appendix: Not visualized. Urinary bladder: Normal. Genitourinary structures: Uterus contains thickened endometrial canal. A large hypodense collection i s in the left adnexa. Abscess is favored with some minimal air in the nondependent portion. Osseous structures: No suspicious lytic or sclerotic lesions. Degenerative changes are at the sacroil iac joints bilaterally IMPRESSIONS: 1. Minimal enlargement of the suspected left hemipelvic adnexal abscess. 2. Resolution previous left gluteal abscess
--- NOTE | 2022-06-28 12:34 | P.PN ---
Progress Note - Text Progress Note Date: 06/28/22 Patient states she feels overall better. She has had some crampy pain at night. On exam vital signs are stable. Abdomen is soft. Wound is clean. Colostomy is functioning. Computed tomography scan today shows no real change in the size of the left pelvic fluid collection. The patient does not act clinically likely has an abscess. We'll consult interventional radiology for potential drainage.
[2022-06-28] MEDS: HYDROcodone/APAP 5-325MG 1 EACH TAB PO PRN (20:17)
[2022-06-28] MEDS: ZOLPIDEM 5 MG TAB PO PRN (21:59)
[2022-06-29] MEDS: HYDROcodone/APAP 5-325MG 1 EACH TAB PO PRN ×3 (01:46→10:10)
[2022-06-29] MEDS: HYDROmorphone 1 MG/ML 1 ML SYRINGE IVP PRN ×4 (01:46→19:57)
[2022-06-29] MEDS: ENOXAPARIN 40 MG/0.4 ML SYRINGE SQ SCH ×2 (08:54→10:35)
[2022-06-29] MEDS: FAMOTIDINE 20 MG/2 ML VIAL IV SCH ×2 (08:54→20:08)
[2022-06-29] MEDS: GABAPENTIN 300 MG CAP PO SCH ×3 (08:54→22:07)
[2022-06-29] MEDS: PIPERACILLIN-TAZOBACTAM 3.375 GM in SODIUM CHLORIDE 0.9% 100 ML IVPB SCH ×2 (08:54→16:36)
--- NOTE | 2022-06-29 12:43 | P.PN ---
Subjective Progress Note Date: 06/29/22 Principal diagnosis: abdominal pain Still with abdominal pain, no buttocks pain. No fevers. No nausea or vomiting. Objective - Vital Signs Vital signs: Vital Signs Temp 98.2 F 06/29/22 08:00 Pulse 60 06/29/22 08:00 Resp 18 06/29/22 08:00 BP 145/75 06/29/22 08:00 Pulse Ox 98 06/29/22 08:00 FiO2 Intake & Output 06/28/22 06/29/22 06/29/22 18:59 06:59 18:59 Intake Total 200 Output Total 6 10 Balance -6 190 Weight 99.79 kg Intake: Intake, IV Titration 200 Amount Piperacillin-Tazobactam 3 200 .375 gm In Sodium Chloride 0.9% 100 ml @ 25 mls/hr IVPB Q8HR [facility] Rx# :[id number] Output: Drainage 6 10 Anterior Abdomen 6 10 Other: Voiding Method Toilet Toilet # Voids 1 - Exam General: non toxic, no distress, appears at stated age Derm: warm, dry Head: atraumatic, normocephalic, symmetric Eyes: EOMI, no lid lag, anicteric sclera Mouth: no lip lesion, mucus membranes moist Cardiovascular: S1S2 reg, no murmur Lungs: CTA bilateral, no rhonchi, no rales , no accessory muscle use Abd: tender, Ostomy visualized with bag full of stool, no masses Ext: no gross muscle atrophy, no edema, no contractures Neuro: no focal neuro deficits Psych: Alert, oriented, appropriate affect - Labs CBC & Chem 7: 06/27/22 07:31 06/27/22 11:51 Assessment and Plan Plan: Peritonitis Perforated sigmoid diverticulitis Left buttock abscess status post incision and drainage Leukocytosis -Management through primary admitting general surgery team including DVT prophylaxis, pain management, wound care, and drain management. -Cultures obtained on 06/07/22 revealing anaerobic culture positive for gram- negative bacilli and Gram stain positive for beta-hemolytic Streptococcus and E. coli. -OR on 06/18 for I&D with toi drain placement, wound culture growing pseudomonas -Patient to continue current IV antibiotics with Flagyl and Zosyn, managed by ID. -Blood cultures - NGTD -Infectious disease Following -Symptomatic care and pain management -PT/OT 06/29: repeat abd/pelvis CT showing left pelvic abscess increasing. Per surgery, will need IR to drain, will go for that tomorrow. Normocytic anemia -Stable -No signs of acute bleeding -Continue to monitor Hypokalemia -Replaced AM labs
--- NOTE | 2022-06-29 15:11 | P.PN ---
Subjective Progress Note Date: 06/29/22 CHIEF COMPLAINT: Perforated diverticulitis with abscess HISTORY OF PRESENT ILLNESS: Patient is status post sigmoid colectomy with end colostomy and washout of pelvic abscess for perforated diverticulitis with abscess on 06/14/22. Patient had I&D of the left buttock abscess on 06/18/2022. Patient complaining of some abdominal discomfort on the lower right side. Her ostomy is functioning. She has purulent minimal output to the EMELIA drain. Nursing staff noted this afternoon some blood in the ostomy bag. Patient unable to have the pelvic abscess drained by IR because she received Lovenox injection this morning. She is tolerating diet. Afebrile. Computed tomography scan minimal enlargement of the suspected left hemipelvic adnexal abscess. Resolution of previous left gluteal abscess. Patient seen and examined with Dr. Conti PHYSICAL EXAM: VITAL SIGNS: Reviewed. GENERAL: Well-developed in no acute distress. HEENT: No sclera icterus. Extraocular movements grossly intact. Moist buccal mucosa. Head is atraumatic, normocephalic. ABDOMEN: Soft. Nondistended. Stoma pink with stool. Incision site clean dry and intact. The lower incision is open to drain and has packing in place. No erythema NEURO: Alert and oriented. Cranial nerves II through XII grossly intact. ASSESSMENT: 1. Perforated diverticulitis with abscess status post sigmoid colectomy with end colostomy and washout of pelvic abscess 2. Left buttock abscess status post incision and drainage PLAN: -Patient scheduled for IR drainage of the left hemipelvic adnexal abscess tomorrow -Hold a.m. dose of Lovenox tomorrow morning -Continue antibiotics -Encourage patient to ambulate -Nursing staff can finish going out EMELIA drain. Patient's EMELIA drain is starting to pull out on its own. -Continue to ambulate -GI prophylaxis Pepcid and DVT prophylaxis Lovenox Physician Furnace Worker note has been reviewed by physician. Signing provider agrees with the documented findings, assessment, and plan of care. Objective - Vital Signs Vital signs: Vital Signs Temp 97.9 F 06/29/22 13:43 Pulse 74 06/29/22 13:43 Resp 18 06/29/22 13:43 BP 127/75 06/29/22 13:43 Pulse Ox 96 06/29/22 13:43 FiO2 Intake & Output 06/28/22 06/29/22 06/29/22 18:59 06:59 18:59 Intake Total 200 296 Output Total 6 10 Balance -6 190 296 Weight 99.79 kg Intake: Intake, IV Titration 200 Amount Piperacillin-Tazobactam 3 200 .375 gm In Sodium Chloride 0.9% 100 ml @ 25 mls/hr IVPB Q8HR [facility] Rx# :[id number] Oral 296 Output: Drainage 6 10 Anterior Abdomen 6 10 Other: Voiding Method Toilet Toilet # Voids 1 - Labs CBC & Chem 7: 06/27/22 07:31 06/27/22 11:51
[2022-06-29] MEDS: ZOLPIDEM 5 MG TAB PO PRN (22:07)
[2022-06-30] MEDS: PIPERACILLIN-TAZOBACTAM 3.375 GM in SODIUM CHLORIDE 0.9% 100 ML IVPB SCH ×2 (00:21→08:28)
[2022-06-30] MEDS: CYCLOBENZAPRINE 5 MG TAB PO PRN ×2 (00:21→08:28)
[2022-06-30] MEDS: HYDROmorphone 1 MG/ML 1 ML SYRINGE IVP PRN ×2 (02:01→09:15)
[2022-06-30] MEDS: HYDROcodone/APAP 5-325MG 1 EACH TAB PO PRN ×3 (08:28→20:54)
[2022-06-30] MEDS: GABAPENTIN 300 MG CAP PO SCH ×3 (08:28→23:26)
[2022-06-30] MEDS: FAMOTIDINE 20 MG/2 ML VIAL IV SCH (08:28)
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
[2022-06-30 10:36] LABS: Basophils # (A) 0.04 X 10*3/uL (0.00-0.10); Basophils % (A) 0.7 %; Eosinophils # (A) 0.15 X 10*3/uL (0.04-0.35); Eosinophils % (A) 2.6 %; HCT 33.8 % (37.2-46.3); HGB 10.4 g/dL (12.0-15.0); Immature Grans, Automated 0.3 %; Lymphocytes # (A) 0.82 X 10*3/uL (0.90-5.00); Lymphocytes % (A) 14.3 %; MCH 28.6 pg (27.0-32.0); MCHC 30.8 g/dL (32.0-37.0); MCV 92.9 fL (80.0-97.0); Mean Platelet Volume 11.4 fL (9.5-12.2); Monocytes # (A) 0.38 X 10*3/uL (0.20-1.00); Monocytes % (A) 6.6 %; NRBC Per 100 WBC 0 /100 WBCS (0.0-0.0); Neutrophils # (A) 4.34 X 10*3/uL (1.80-7.70); Neutrophils % (A) 75.5 %; Platelet Count 225 X 10*3/uL (140-440); RBC 3.64 X 10*6/uL (4.10-5.20); RDW 16.3 % (11.5-14.5); WBC 5.75 X 10*3/uL (4.50-10.00)
[2022-06-30 10:51] LABS: Magnesium 2.2 mg/dL (1.5-2.4)
[2022-06-30 11:00] LABS: African American GFR (CKD) 110.7 (60.0-200.0); Albumin 3.1 g/dL (3.8-4.9); Albumin/Globulin Ratio 1.15 (1.60-3.17); Anion Gap 9.2 mmol/L (10.00-18.00); BUN/Creat Ratio 10.14 Ratio (12.00-20.00); Blood Urea Nitrogen 7.1 mg/dL (9.0-27.0); Calcium 8.4 mg/dL (8.7-10.3); Carbon Dioxide 25.8 mmol/L (20.0-27.5); Globulin 2.7 g/dL (1.6-3.3); Non-African American GFR(CKD) 95.5 (60.0-200.0); Potassium 3.8 mmol/L (3.5-5.5); Total Bilirubin 0.5 mg/dL (0.30-1.20); Total Protein 5.8 g/dL (6.2-8.2)
--- NOTE | 2022-06-30 12:33 | CT ---
EXAMINATION TYPE: CT discontinued procedure DATE OF EXAM: 06/30/2022 COMPARISON: CT 06/28/2022 HISTORY: Discontinued drainage tube insertion CT DLP: 554 mGycm Automated exposure control for dose reduction was used. CT performed for procedure planning FINDINGS: Patient evaluated in the prone position. Of note the tract from patient's prior drain placement is no lamberto. There is lucency in the right gluteal region consistent with patient's abscess and incision and drainage. The collection noted within the pelvis has changed in configuration and appears somewhat sm aller in size. Additionally the vasculature seen at the level of the prior access is not as well defi leonor, there is local inflammatory change. IMPRESSION: DUE TO PATIENT'S CLINICAL SETTING AND PERHAPS DECREASED SIZE OF THE COLLECTION, EVALUATION OF RISK BE NEFIT RATIO OF THE PROCEDURE IS NOT PERFORMED AT THIS TIME. CASE WAS DISCUSSED WITH THE REFERRING NEREIDA HORVATH.
[2022-06-30] MEDS ORDERED: HYDROmorphone 0.5 MG/0.5 ML SYRINGE IVP PRN (12:51)
--- NOTE | 2022-06-30 14:53 | P.PN ---
Subjective Progress Note Date: 06/30/22 Principal diagnosis: abdominal pain Patient was going to have needle aspiration of the pelvic abscess, however procedure was aborted due to increased risk compared to benefit of putting the needle in the abdominal structures. Patient continues to have abdominal pain. Objective - Vital Signs Vital signs: Vital Signs Temp 98.0 F 06/30/22 08:00 Pulse 67 06/30/22 10:00 Resp 17 06/30/22 10:00 BP 153/75 06/30/22 10:00 Pulse Ox 96 06/30/22 10:00 FiO2 Intake & Output 06/29/22 06/30/22 06/30/22 18:59 06:59 18:59 Intake Total 592 Balance 592 Weight 99.79 kg Intake: Oral 592 Other: Voiding Method Toilet Toilet # Voids 4 3 # Bowel Movements 0 - Exam General: non toxic, no distress, appears at stated age Derm: warm, dry Head: atraumatic, normocephalic, symmetric Eyes: EOMI, no lid lag, anicteric sclera Mouth: no lip lesion, mucus membranes moist Cardiovascular: S1S2 reg, no murmur Lungs: CTA bilateral, no rhonchi, no rales , no accessory muscle use Abd: tender, Ostomy visualized with bag full of stool, no masses Ext: no gross muscle atrophy, no edema, no contractures Neuro: no focal neuro deficits Psych: Alert, oriented, appropriate affect - Labs CBC & Chem 7: 06/30/22 06:56 06/30/22 06:56 Labs: Abnormal Lab Results - Last 24 Hours (Table) 06/30/22 06/30/22 Range/Units 06:56 06:56 RBC 3.64 L (4.10-5.20) X 10*6/uL Hgb 10.4 L (12.0-15.0) g/dL Hct 33.8 L (37.2-46.3) % MCHC 30.8 L (32.0-37.0) g/dL RDW 16.3 H (11.5-14.5) % Lymphocytes # 0.82 L (0.90-5.00) X 10*3/uL Anion Gap 9.20 L (10.00-18.00) mmol/L BUN 7.1 L (9.0-27.0) mg/dL BUN/Creatinine Ratio 10.14 L (12.00-20.00) Ratio Calcium 8.4 L (8.7-10.3) mg/dL Total Protein 5.8 L (6.2-8.2) g/dL Albumin 3.1 L (3.8-4.9) g/dL Albumin/Globulin Ratio 1.15 L (1.60-3.17) g/dL Assessment and Plan Plan: Peritonitis Perforated sigmoid diverticulitis Left buttock abscess status post incision and drainage Leukocytosis -Management through primary admitting general surgery team including DVT prophylaxis, pain management, wound care, and drain management. -Cultures obtained on 06/07/22 revealing anaerobic culture positive for gram-negative bacilli and Gram stain positive for beta-hemolytic Streptococcus and E. coli. -OR on 06/18 for I&D with toi drain placement, wound culture growing pseudomonas -Patient to continue current IV antibiotics with Flagyl and Zosyn, managed by ID. -Blood cultures - NGTD -Infectious disease Following -Symptomatic care and pain management -PT/OT 06/29: repeat abd/pelvis CT showing left pelvic abscess increasing. Per surgery, will need IR to drain, will go for that tomorrow. 06/30: needle aspiration was aborted by radiology, due to increased risk compared to benefits. Paged surgery awaiting for further plans. Normocytic anemia -Stable -No signs of acute bleeding -Continue to monitor Hypokalemia -Replaced
--- NOTE | 2022-06-30 15:06 | P.PN ---
Subjective Progress Note Date: 06/30/22 CHIEF COMPLAINT: Perforated diverticulitis with abscess HISTORY OF PRESENT ILLNESS: Patient is status post sigmoid colectomy with end colostomy and washout of pelvic abscess for perforated diverticulitis with abscess on 06/14/22. Patient had I&D of the left buttock abscess on 06/18/2022. Patient complains of abdominal pain. She has still been requiring the IV Dilaudid. She does report that her pain is improving each day. Initially scheduled for a CT guided drainage by IR of the abdominal pelvic abscess. Procedure was aborted per IR service due to difficult needle placement due to vasculature. Patient's ostomy is functioning. No further blood reported in ostomy bag. EMELIA drain was discontinued yesterday. Patient has been cleared for discharge by infectious disease. The recommending 2 more weeks of IV antibiotics. Patient is tolerating diet. Afebrile. WBC is 5.75 Hgb 10.4 platelets 225 sodium 137 potassium 3.8 creatinine 0.7 Patient seen and examined with Dr. Conti PHYSICAL EXAM: VITAL SIGNS: Reviewed. GENERAL: Well-developed in no acute distress. HEENT: No sclera icterus. Extraocular movements grossly intact. Moist buccal mucosa. Head is atraumatic, normocephalic. ABDOMEN: Soft. Nondistended. Stoma pink with stool. Incision site clean dry and intact. The lower incision is open to drain and has packing in place. No erythema. Left buttocks [place] drain in place. Skin dermatitis noted around [place] drain NEURO: Alert and oriented. Cranial nerves II through XII grossly intact. ASSESSMENT: 1. Perforated diverticulitis with abscess status post sigmoid colectomy with end colostomy and washout of pelvic abscess 2. Left buttock abscess status post incision and drainage PLAN: -Anticipate discharge home possibly tomorrow with IV antibiotics -Continue to wean patient off of the IV pain medication -Encourage patient to ambulate -Patient did report some pink discoloration to her urine. Urinalysis ordered. She had Sinclair catheter previously. This could be sinclair trauma -GI prophylaxis Pepcid and DVT prophylaxis Lovenox Physician [employer] Report Developer note has been reviewed by physician. Signing provider agrees with the documented findings, assessment, and plan of care. Objective - Vital Signs Vital signs: Vital Signs Temp 98.0 F 06/30/22 08:00 Pulse 67 06/30/22 10:00 Resp 17 06/30/22 10:00 BP 153/75 06/30/22 10:00 Pulse Ox 96 06/30/22 10:00 FiO2 Intake & Output 06/29/22 06/30/22 06/30/22 18:59 06:59 18:59 Intake Total 592 Balance 592 Weight 99.79 kg Intake: Oral 592 Other: Voiding Method Toilet Toilet # Voids 4 3 # Bowel Movements 0 - Labs CBC & Chem 7: 06/30/22 06:56 06/30/22 06:56 Labs: Abnormal Lab Results - Last 24 Hours (Table) 06/30/22 06/30/22 Range/Units 06:56 06:56 RBC 3.64 L (4.10-5.20) X 10*6/uL Hgb 10.4 L (12.0-15.0) g/dL Hct 33.8 L (37.2-46.3) % MCHC 30.8 L (32.0-37.0) g/dL RDW 16.3 H (11.5-14.5) % Lymphocytes # 0.82 L (0.90-5.00) X 10*3/uL Anion Gap 9.20 L (10.00-18.00) mmol/L BUN 7.1 L (9.0-27.0) mg/dL BUN/Creatinine Ratio 10.14 L (12.00-20.00) Ratio Calcium 8.4 L (8.7-10.3) mg/dL Total Protein 5.8 L (6.2-8.2) g/dL Albumin 3.1 L (3.8-4.9) g/dL Albumin/Globulin Ratio 1.15 L (1.60-3.17) g/dL
[2022-06-30] MEDS: CEFEPIME 2 GM in SODIUM CHLORIDE 0.9% 100 ML IVPB SCH (19:07)
[2022-06-30] MEDS: metroNIDAZOLE 500 MG TAB PO SCH ×2 (19:07→23:27)
[2022-06-30] MEDS: ZOLPIDEM 5 MG TAB PO PRN (20:54)
[2022-06-30] MEDS: FAMOTIDINE 20 MG TAB PO SCH (20:54)
[2022-06-30 22:10] LABS: Amorphous Sediment,Urine Few /hpf; Appearance,Urine Cloudy (Clear); Bacteria,Urine Rare /hpf; Bilirubin,Urine Negative (Negative); Blood,Urine Large (Negative); Color,Urine Yellow; Glucose,Urine (UA) Negative (Negative); Ketones,Urine Negative (Negative); Leukocyte Esterase,Urine Negative (Negative); Mucus,Urine Rare /hpf; Nitrite,Urine Negative (Negative); PH, Urine 7.5 (5.0-8.0); Protein,Urine Negative (Negative); RBC,Urine >182 /hpf (0-5); Specific Gravity,Urine 1.013 (1.001-1.035); Squamous Epithelial Cell,Urine <1 /hpf (0-4); Urobilinogen,Urine <2.0 mg/dL (<2.0); WBC,Urine 2 /hpf (0-5)
[2022-07-01] MEDS: CEFEPIME 2 GM in SODIUM CHLORIDE 0.9% 100 ML IVPB SCH ×2 (00:01→08:39)
[2022-07-01] MEDS: FAMOTIDINE 20 MG TAB PO SCH (08:39)
[2022-07-01] MEDS: ENOXAPARIN 40 MG/0.4 ML SYRINGE SQ SCH (08:39)
[2022-07-01] MEDS: metroNIDAZOLE 500 MG TAB PO SCH ×2 (08:39→16:50)
[2022-07-01] MEDS: GABAPENTIN 300 MG CAP PO SCH ×2 (08:39→16:50)
--- NOTE | 2022-07-01 08:52 | P.PN ---
Subjective Progress Note Date: 06/28/22 Principal diagnosis: Perforated diverticulitis and intra-abdominal abscess Patient is a 57-year-old female who was recently admitted at this facility diagnosed with a perforated diverticulitis intra-abdominal abscess status post CT-guided drainage culture positive for E. coli and strep and anaerobes discharged on Rocephin and Flagyl subsequently presented back to the hospital with more pain and her drainage catheter site and no output patient was noticed to have worsening abscess and inflammation around the drainage catheter site patient is status post laparotomy diverting colostomy abdominal washout and no cultures. Patient did have CT of the left hip contusion shows large abscess and still showing the pelvic abscess unchanged from the previous CT On today's evaluation that is 06/28/2022, the patient remains to be febrile, the patient is breathing comfortably on room air , the patient denies any chest pain shortness of breath or cough , the patient abdominal and left gluteal pain has decreased in intensity, patient denies having any urinary symptoms Objective - Vital Signs Vital signs: Vital Signs Temp 97.9 F 06/28/22 08:00 Pulse 59 L 06/28/22 08:00 Resp 17 06/28/22 08:00 BP 138/75 06/28/22 08:00 Pulse Ox 97 06/28/22 08:00 FiO2 Intake & Output 06/27/22 06/28/22 06/28/22 18:59 06:59 18:59 Intake Total 560 Output Total 10 10 3 Balance -10 550 -3 Intake: Intake, IV Titration 200 Amount Piperacillin-Tazobactam 3 200 .375 gm In Sodium Chloride 0.9% 100 ml @ 25 mls/hr IVPB Q8HR [facility] Rx# :[id number] Oral 360 Output: Drainage 10 10 3 Anterior Abdomen 10 10 3 Other: Voiding Method Toilet # Voids 4 1 # Bowel Movements 1 - Exam GENERAL DESCRIPTION: Middle-aged female lying in bed in no distress RESPIRATORY SYSTEM: Unlabored breathing , decreased breath sounds at bases HEART: S1 S2 regular rate and rhythm , ABDOMEN: Soft , abdominal incision is currently dressed EXTREMITIES: No edema feet - Labs CBC & Chem 7: 06/30/22 06:56 06/30/22 06:56 Assessment and Plan (1) Pelvic abscess Current Visit: No Status: Acute Code(s): [id number] - SNOMED Code(s): 704126723 (2) Perforation of sigmoid colon due to diverticulitis Current Visit: No Status: Acute Code(s): K57.20 - DVTRCLI OF LG INT W PERFORATION AND ABSCESS W/O BLEEDING SNOMED Code(s): 6848404800033583 Plan: 1patient presented to hospital with drainage around the CT-guided drainage catheter site and this patient noticed to have worsening of the intra-abdominal abscess and some inflammation around the drainage catheter site status post laparotomy and diverting colostomy and washout of the pelvic abscess unfort unately no cultures were done with the recent CT-guided fluid cultures were positive for E. coli strep and anaerobes 2patient did have a CT of the hip showing a large intramuscular abscess and the pelvic abscess was unchanged patient is status post drainage of the left gluteal abscess and culture has been finalized and pseudomonas aeruginosa sensitive pathogen 3patient repeat a CT of abdominal pelvis did shows change in the pelvic abscess with ask IR drainage of this abscess, discussed with the surgery 4continue with the Ravinder Time with Patient: Less than 30
--- NOTE | 2022-07-01 08:54 | P.PN ---
Subjective Progress Note Date: 06/29/22 Principal diagnosis: Perforated diverticulitis and intra-abdominal abscess Patient is a 57-year-old female who was recently admitted at this facility diagnosed with a perforated diverticulitis intra-abdominal abscess status post CT-guided drainage culture positive for E. coli and strep and anaerobes discharged on Rocephin and Flagyl subsequently presented back to the hospital with more pain and her drainage catheter site and no output patient was noticed to have worsening abscess and inflammation around the drainage catheter site patient is status post laparotomy diverting colostomy abdominal washout and no cultures. Patient did have CT of the left hip contusion shows large abscess the patient is status post surgical drainage of the gluteal abscess, patient did have a CT completed on 06/28/2022 still showing the pelvic abscess On today's evaluation that is 06/29/2022, the patient continues to be febrile, the patient is breathing comfortably on room air , the patient denies any chest pain shortness of breath or cough , the patient abdominal and left gluteal pain has decreased in intensity, patient did have a carpet in her colostomy bag and no significant output in the left gluteal drainage catheter Objective - Vital Signs Vital signs: Vital Signs Temp 97.9 F 06/29/22 13:43 Pulse 74 06/29/22 13:43 Resp 18 06/29/22 13:43 BP 127/75 06/29/22 13:43 Pulse Ox 96 06/29/22 13:43 FiO2 Intake & Output 06/28/22 06/29/22 06/29/22 18:59 06:59 18:59 Intake Total 200 296 Output Total 6 10 Balance -6 190 296 Weight 99.79 kg Intake: Intake, IV Titration 200 Amount Piperacillin-Tazobactam 3 200 .375 gm In Sodium Chloride 0.9% 100 ml @ 25 mls/hr IVPB Q8HR [facility] Rx# :[id number] Oral 296 Output: Drainage 6 10 Anterior Abdomen 6 10 Other: Voiding Method Toilet Toilet # Voids 1 - Exam GENERAL DESCRIPTION: Middle-aged female lying in bed in no distress RESPIRATORY SYSTEM: Unlabored breathing , decreased breath sounds at bases HEART: S1 S2 regular rate and rhythm , ABDOMEN: Soft , abdominal incision is currently dressed EXTREMITIES: No edema feet - Labs CBC & Chem 7: 06/30/22 06:56 06/30/22 06:56 Assessment and Plan (1) Pelvic abscess Current Visit: No Status: Acute Code(s): [id number] - SNOMED Code(s): 707008546 (2) Perforation of sigmoid colon due to diverticulitis Current Visit: No Status: Acute Code(s): K57.20 - DVTRCLI OF LG INT W PERFORATION AND ABSCESS W/O BLEEDING SNOMED Code(s): 2018065046280806 Plan: 1patient presented to hospital with drainage around the CT-guided drainage catheter site and this patient noticed to have worsening of the intra-abdominal abscess and some inflammation around the drainage catheter site status post laparotomy and diverting colostomy and washout of the pelvic abscess unfortunately no cultures were done with the recent CT-guided fluid cultures were positive for E. coli strep and anaerobes 2patient did have a CT of the hip showing a large intramuscular abscess and the pelvic abscess was unchanged patient is status post drainage of the left gluteal abscess and culture has been finalized and pseudomonas aeruginosa sensitive pathogen 3patient repeat a CT of abdominal pelvis did shows change in the pelvic abscess currently waiting for IR drainage of this abscess, 4patient to continue with the Zosyn Time with Patient: Less than 30
--- NOTE | 2022-07-01 08:56 | P.PN ---
Subjective Progress Note Date: 06/30/22 Principal diagnosis: Perforated diverticulitis and intra-abdominal abscess Patient is a 57-year-old female who was recently admitted at this facility diagnosed with a perforated diverticulitis intra-abdominal abscess status post CT-guided drainage culture positive for E. coli and strep and anaerobes discharged on Rocephin and Flagyl subsequently presented back to the hospital with more pain and her drainage catheter site and no output patient was noticed to have worsening abscess and inflammation around the drainage catheter site patient is status post laparotomy diverting colostomy abdominal washout and no cultures. Patient did have CT of the left hip contusion shows large abscess the patient is status post surgical drainage of the gluteal abscess, patient did have a CT completed on 06/28/2022 still showing the pelvic abscess On today's evaluation that is 06/30/2022, the patient denies any fever or any chills, the patient is breathing comfortably on room he denies any chest pain shortness of breath or cough patient abdominal as well as left shoulder pain has decreased intensity, no new symptoms Objective - Vital Signs Vital signs: Vital Signs Temp 98.0 F 06/30/22 08:00 Pulse 67 06/30/22 10:00 Resp 17 06/30/22 10:00 BP 153/75 06/30/22 10:00 Pulse Ox 96 06/30/22 10:00 FiO2 Intake & Output 06/29/22 06/30/22 06/30/22 18:59 06:59 18:59 Intake Total 592 Balance 592 Weight 99.79 kg Intake: Oral 592 Other: Voiding Method Toilet Toilet # Voids 4 3 # Bowel Movements 0 - Exam GENERAL DESCRIPTION: Middle-aged female lying in bed in no distress RESPIRATORY SYSTEM: Unlabored breathing , decreased breath sounds at bases HEART: S1 S2 regular rate and rhythm , ABDOMEN: Soft , lower abdominal incision is healing well with no soft tissue no surrounding redness EXTREMITIES: No edema feet - Labs CBC & Chem 7: 06/30/22 06:56 06/30/22 06:56 Labs: Abnormal Lab Results - Last 24 Hours (Table) 06/30/22 06/30/22 Range/Units 06:56 06:56 RBC 3.64 L (4.10-5.20) X 10*6/uL Hgb 10.4 L (12.0-15.0) g/dL Hct 33.8 L (37.2-46.3) % MCHC 30.8 L (32.0-37.0) g/dL RDW 16.3 H (11.5-14.5) % Lymphocytes # 0.82 L (0.90-5.00) X 10*3/uL Anion Gap 9.20 L (10.00-18.00) mmol/L BUN 7.1 L (9.0-27.0) mg/dL BUN/Creatinine Ratio 10.14 L (12.00-20.00) Ratio Calcium 8.4 L (8.7-10.3) mg/dL Total Protein 5.8 L (6.2-8.2) g/dL Albumin 3.1 L (3.8-4.9) g/dL Albumin/Globulin Ratio 1.15 L (1.60-3.17) g/dL Assessment and Plan (1) Pelvic abscess Current Visit: No Status: Acute Code(s): [id number] - SNOMED Code(s): 883138556 (2) Perforation of sigmoid colon due to diverticulitis Current Visit: No Status: Acute Code(s): K57.20 - DVTRCLI OF LG INT W PERFORATION AND ABSCESS W/O BLEEDING SNOMED Code(s): 0981413648440777 Plan: 1patient presented to hospital with drainage around the CT-guided drainage catheter site and this patient noticed to have worsening of the intra-abdominal abscess and some inflammation around the drainage catheter site status post laparotomy and diverting colostomy and washout of the pelvic abscess unfortunately no cultures were done with the recent CT-guided fluid cultures were positive for E. coli strep and anaerobes 2patient did have a CT of the hip showing a large intramuscular abscess and the pelvic abscess was unchanged patient is status post drainage of the left gluteal abscess and culture has been finalized and pseudomonas aeruginosa sensitive pathogen 3patient repeat a CT of abdominal pelvis did shows change in the pelvic abscess IR drainage was unable to drain the abscess because of the location and didn't mention decrease in the size of the abscess 4patient antibiotic will be switched over to cefepime 2 g every 8 hours along with oral Flagyl to continue for 2 weeks with a plan for repeat CAT scan before completion of her antibiotic therapy discussed with the OCCUPATIONAL THERAPIST PER DIEM for the surgical team working on discharge Time with Patient: Less than 30
[2022-07-01] MEDS ORDERED: ZINC OXIDE 20% OINT 28.4 GM TUBE TOPICAL SCH (11:45)
--- NOTE | 2022-07-01 11:48 | P.DS ---
Providers Date of admission: 06/15/22 12:54 Expected date of discharge: 07/01/22 Attending physician: Freedom Conti Consults: 06/14/22 04:13 Consult Physician Routine Consulting Provider: Sharon Cui Consult Reason/Comments: Medical management Do you want consulting provider notified?: Yes, Notify in am 06/14/22 11:18 Consult Physician Routine Consulting Provider: Kiya Rollins Consult Reason/Comments: IV antibiotic management Do you want consulting provider notified?: Yes Primary care physician: Stated None Hospital Course: Discharge diagnosis 1. Perforated diverticulitis with abscess status post sigmoid colectomy with end colostomy and washout of pelvic abscess 2. Left buttock abscess status post incision and drainage Hospital course This is a 57-year-old female who was recently hospitalized for complicated perforated sigmoid diverticulitis with abscess. She had CT-guided drainage of abscess during her admission. She was discharged home with IV antibiotics and the drain. Patient reports she was having purulent foul-smelling drainage from the drain. However 2 days ago the drain stopped working and she started to have leaking around the tubing that was located in the left buttocks. She describes it as a burning sensation. Patient had a computed tomography scan abdomen and pelvis showing redemonstration of contained perforation of sigmoid diverticulitis with slight increase in size of left pelvic abscess and new foci area of gas in the left gluteal musculature with surrounding fat stranding. Patient was taken to the OR and had sigmoid colectomy with end colostomy and washout of pelvic abscess with Dr. Conti on 06/14/22. She remained on antibiotics. She continued to have pain in the left buttock area. A computed tomography scan of the area showed evidence of abscess formation. She then underwent incision and drainage of the left buttock abscess with Dr. Padilla on 06/18/22. Patient has remained on IV antibiotics. She's been followed closely by infectious disease. They are recommending IV cefepime for 2 more weeks and oral Flagyl. Patient is tolerating diet. She is up and ambulating. Her pain is controlled. Her ostomy is functioning. She does have dermatitis from the skin irritation from the drainage from the [place] drain on the left buttocks. She'll be discharged with zinc oxide to apply to that area. Patient also having a pink tinged urine. Urinalysis did show a large amount of blood. No evidence of infection in the urine. Recommend that she's follows up with urology outpatient. Hemoglobin has been stable. Patient has been cleared by individual pension consultant physicians for discharge. She is stable for discharge. Please refer to chart for any further details. Physician Warp Splitter note has been reviewed by physician. Signing provider agrees with the documented findings, assessment, and plan of care. Patient Condition at Discharge: Stable Plan - Discharge Summary Discharge Rx Participant: Yes New Discharge Prescriptions: New Cefepime [Maxipime] 2 gm IVPB Q8H #42 each metroNIDAZOLE [Flagyl] 500 mg PO TID #42 tab Cyclobenzaprine [Flexeril] 5 mg PO BID PRN #30 tab PRN Reason: Muscle Spasm HYDROcodone/APAP 5-325MG [[place] 5-325] 1 tab PO Q6HR PRN 3 Days #12 tab PRN Reason: Pain Zinc Oxide 1 applic TOPICAL BID #30 gm Continue Ibuprofen [Motrin] 600 mg PO Q8HR PRN #30 tab PRN Reason: Pain Acetaminophen Tab [Tylenol] 1,000 mg PO Q6HR PRN #30 tablet PRN Reason: Pain Gabapentin [Neurontin] 300 mg PO TID PRN PRN Reason: Pain Omeprazole [PriLOSEC] 40 mg PO DAILY #14 cap Discontinued metroNIDAZOLE [Flagyl] 500 mg PO TID #42 tab cefTRIAXone [Rocephin] 2 gm IVPB Q24H #14 each Discharge Medication List Acetaminophen Tab [Tylenol] 1,000 mg PO Q6HR PRN #30 tablet 06/10/22 [Rx] Ibuprofen [Motrin] 600 mg PO Q8HR PRN #30 tab 06/10/22 [Rx] Omeprazole [PriLOSEC] 40 mg PO DAILY #14 cap 06/10/22 [Rx] Gabapentin [Neurontin] 300 mg PO TID PRN 06/13/22 [History] Cefepime [Maxipime] 2 gm IVPB Q8H #42 each 06/22/22 [Rx] Cyclobenzaprine [Flexeril] 5 mg PO BID PRN #30 tab 06/23/22 [Rx] HYDROcodone/APAP 5-325MG [Seneca 5-325] 1 tab PO Q6HR PRN 3 Days #12 tab 07/01/22 [Rx] Zinc Oxide 1 applic TOPICAL BID #30 gm 07/01/22 [Rx] metroNIDAZOLE [Flagyl] 500 mg PO TID #42 tab 07/01/22 [Rx] Follow up Appointment(s)/Referral(s): Javi Oviedo MD [STAFF PHYSICIAN] - 1 Week [facility], [NON-STAFF] - 1-2 Days [facility]fusion [NON-STAFF] - 07/01/22 1:15 pm ([employer] and train set up through [facility] for outpatient IV Cefepime 2gm q8 hours for 2 weeks. Patient will need to go to the clinic the day after discharge. The weekly cost will be $476.21. ) None,Stated [Primary Care Provider] - 1-2 days Kiya Rollins MD [STAFF PHYSICIAN] - 2 Weeks [facility] [NON-STAFF] - As Needed (Call to see if they have a walker and bedside commode chair. ) Freedom Conti MD [STAFF PHYSICIAN] - 1 Week Activity/Diet/Wound Care/Special Instructions: Recommendations for Colostomy care for home: LAst pouching system change: 06.29.2022 Mrs Mayers will have supplies provided by the hospital as follows: Coloplast convex cut to fit with filter pouching system #29133 (4) Convatec one piece flat barrier cut to fit with filter #51376 (3) If this is used need to utilize the Gianna seal half valdez to the skin crease area Osotmy powder (1) Gianna seal (3) if needed for skin crease prior to pouch application No sting prep pads for around the stoma area prior to applying the pouching system (10) Ostomy belt (2) - This may need to be utilized if the pouching system is having issues sealing to the skin and leaking Attached to the eyelets on each side of the pouch Empty the pouching system when it is 1/2 to 1/3 full in the bathroom either sitting on the toilet or straddling the toilet bowl The entire pouching system should be changed every 3 - 5 days or if issues arise Eventually Mrs Mayers should be able to obtain disposable pouches in 3- 5 weeks pending progress Remember Mrs Mayers will be receiving sample supplies from [employer]oplast as requested after discharge from the hospital No driving while taking [place] No lifting over 10 pounds Shower daily. No soaking or tub baths for 2 weeks Very light activity until you are reevaluated at your follow up appointment with your surgeon Follow-up with urology outpatient regarding blood on urinalysis and pink tinged urine Continue wet-to-dry dressing changes to abdominal incision daily Continue changing the dressing around left buttock Georgette drain daily and as needed Discharge/Stand Alone Forms: Community Resources Discharge Disposition: HOME WITH HOME HEALTH SERVICES
[2022-07-01] MEDS: HYDROcodone/APAP 5-325MG 1 EACH TAB PO PRN ×2 (13:02→16:50)
--- NOTE | 2022-07-01 13:26 | P.PN ---
Subjective Progress Note Date: 07/01/22 Principal diagnosis: abdominal pain Doing better now still with pain in the abdomen however it is better now. No fevers or chills. No n/v. Objective - Vital Signs Vital signs: Vital Signs Temp 98.1 F 07/01/22 08:00 Pulse 64 07/01/22 08:00 Resp 16 07/01/22 08:35 BP 176/93 07/01/22 08:00 Pulse Ox 98 07/01/22 08:00 FiO2 Intake & Output 06/30/22 07/01/22 07/01/22 18:59 06:59 18:59 Intake Total 800 Output Total 150 Balance 650 Intake: Intake, IV Titration 200 Amount Cefepime 2 gm In Sodium 200 Chloride 0.9% 100 ml @ 25 mls/hr IVPB Q8HR [facility] Rx# :[id number] Oral 600 Output: Stool 150 Other: Voiding Method Toilet Toilet # Voids 1 # Bowel Movements 0 - Exam General: non toxic, no distress, appears at stated age Derm: warm, dry Head: atraumatic, normocephalic, symmetric Eyes: EOMI, no lid lag, anicteric sclera Mouth: no lip lesion, mucus membranes moist Cardiovascular: S1S2 reg, no murmur Lungs: CTA bilateral, no rhonchi, no rales , no accessory muscle use Abd: tender, Ostomy visualized with bag full of stool, no masses Ext: no gross muscle atrophy, no edema, no contractures Neuro: no focal neuro deficits Psych: Alert, oriented, appropriate affect - Labs CBC & Chem 7: 06/30/22 06:56 06/30/22 06:56 Labs: Abnormal Lab Results - Last 24 Hours (Table) 06/30/22 Range/Units 20:50 Urine Appearance Cloudy H (Clear) Urine Blood Large H (Negative) Urine RBC >182 H (0-5) /hpf Amorphous Sediment Few H (None) /hpf Urine Bacteria Rare H (None) /hpf Urine Mucus Rare H (None) /hpf Assessment and Plan Plan: Peritonitis Perforated sigmoid diverticulitis Left buttock abscess status post incision and drainage Leukocytosis -Management through primary admitting general surgery team including DVT prophylaxis, pain management, wound care, and drain management. -Cultures obtained on 06/07/22 revealing anaerobic culture positive for gram- negative bacilli and Gram stain positive for beta-hemolytic Streptococcus and E. coli. -OR on 06/18 for I&D with toi drain placement, wound culture growing pseudomonas -Patient to continue current IV antibiotics with Flagyl and Zosyn, managed by ID. -Blood cultures - NGTD -Infectious disease Following -Symptomatic care and pain management -PT/OT 06/29: repeat abd/pelvis CT showing left pelvic abscess increasing. Per surgery, will need IR to drain, will go for that tomorrow. 06/30: needle aspiration was aborted by radiology, due to increased risk compared to benefits. Paged surgery awaiting for further plans. 07/01: surgeon will not operate any further, will be discharged today on IV abx. Cleared by medicine for discharge. Normocytic anemia -Stable -No signs of acute bleeding -Continue to monitor Hypokalemia -Replaced
[2022-07-01 14:38] VITALS: BP 152/73; PULSE 72; RESP 18; TEMP 97.9
== END 2022-07-01 17:00 | disposition home health service (06) | DRG 329 ==
LOC: EC 19:02 → 6NMEDSUR 06-14 01:56 → 4SSUR 06-14 05:51 → OBSVTOIN 06-15 12:54 → 4SSUR 06-16 05:06
PROVIDERS: ADMIT Surgery; ATTEND Surgery
PROC: 02HV33Z Insertion of Infusion Device into Superior Vena Cava, Percutaneous Approach (ICD-10-PCS; 2022-06-14)
PROC: 0D1N0Z4 Bypass Sigmoid Colon to Cutaneous, Open Approach (ICD-10-PCS; principal; 2022-06-14 11:40)
PROC: 0W9J0ZZ Drainage of Pelvic Cavity, Open Approach (ICD-10-PCS; principal; 2022-06-14 11:40)
PROC: 0DBN0ZZ Excision of Sigmoid Colon, Open Approach (ICD-10-PCS; principal; 2022-06-14 11:40)
PROC: 0Y910ZZ Drainage of Left Buttock, Open Approach (ICD-10-PCS; 2022-06-18)
DX: K57.20 Diverticulitis of large intestine with perforation and abscess without bleeding (principal); K65.1 Peritoneal abscess; E44.1 Mild protein-calorie malnutrition; T85.638A Leakage of other specified internal prosthetic devices, implants and grafts, initial encounter; L02.31 Cutaneous abscess of buttock; K94.09 Other complications of colostomy; E66.01 Morbid (severe) obesity due to excess calories; Z28.310 Unvaccinated for COVID-19; N73.9 Female pelvic inflammatory disease, unspecified; B96.5 Pseudomonas (aeruginosa) (mallei) (pseudomallei) as the cause of diseases classified elsewhere; E87.6 Hypokalemia; F32.A Depression, unspecified; D64.9 Anemia, unspecified; R32 Unspecified urinary incontinence; Z53.9 Procedure and treatment not carried out, unspecified reason; H91.90 Unspecified hearing loss, unspecified ear; M19.90 Unspecified osteoarthritis, unspecified site; G89.29 Other chronic pain; M54.9 Dorsalgia, unspecified; M25.512 Pain in left shoulder; L30.9 Dermatitis, unspecified; Z68.36 Body mass index [BMI] 36.0-36.9, adult; Z79.2 Long term (current) use of antibiotics; Z79.899 Other long term (current) drug therapy; Z87.891 Personal history of nicotine dependence; Z87.442 Personal history of urinary calculi; Z87.440 Personal history of urinary (tract) infections; Y92.230 Patient room in hospital as the place of occurrence of the external cause
CPT/HCPCS: 36415; 36556; 36573; 74177; 76380; 80048; 80053; 81001; 82150; 83690; 83735; 84132; 85025; 85027; 85610; 86850; 86900; 86901; 87040; 87070; 87075; 87077; 87186; 87205; 88307; 96365; 96375; 96376; 99284

== ENCOUNTER → 2022-07-21 | Outpatient (CLI) | payer SELFPAY ==
--- NOTE | 2022-07-21 12:00 | CT ---
EXAMINATION TYPE: CT abdomen pelvis w con DATE OF EXAM: 07/21/2022 COMPARISON: HISTORY: Abscess of liver CT DLP: 1487.5 mGycm CONTRAST: CT scan of the abdomen and pelvis is performed with Oral Contrast and with IV Contrast, patient injec lamberto with 70 mL of Isovue 300. FINDINGS: LUNG BASES-: No visible nodule. No infiltrate. LIVER/GB: No calcified gallstones. The gallbladder is distended at 9.6 cm in greatest dimension. N o hepatic abscess is identified at this time. No space occupying hepatic lesion. Biliary tree is of n ormal caliber. PANCREAS: No inflammation. No distinct mass. SPLEEN: Persistent splenomegaly with AP dimension of 515.7 cm. No lesion seen. ADRENALS: Right adrenal mass is unchanged and may reflect adenoma. KIDNEYS/BLADDER: No hydronephrosis. No nephrolithiasis. No distinct renal mass. Urinary bladder g rossly unremarkable. BOWEL: Previously noted surgical drain within the pelvis has been removed. Small residual abscess wit hin the left hemipelvis persists and measures 4.5 versus 2.2 cm versus 7 cm maximal dimension previou sly. Left-sided colostomy seen. GENITAL ORGANS: No gross abnormality. LYMPH NODES: No greater than 1cm abdominal or pelvic lymph nodes are appreciated. AORTA: No significant abnormality. OSSEOUS STRUCTURES: No significant abnormality is seen. OTHER: Midline skin marek have been removed. Tiny focus of air within the subcutaneous tissues. No drainable abscess seen. IMPRESSION: 1. Surgical drain within the pelvis has been removed. Persistent abscesses noted with dimensions give n above which is smaller in size. No new abscesses identified at this time. 2. Stable left-sided colostomy change. Skin marek have been removed small amount of air seen within the subcutaneous tissues. 3. Gallbladder hydrops
== END | disposition home or self-care (01) ==
LOC: RADCTMAIN 09:00
PROVIDERS: ATTEND Internal Medicine Infectious Disease
DX: K75.0 Abscess of liver (principal); K82.1 Hydrops of gallbladder
CPT/HCPCS: 74177; Q9967 ×2